=== PATIENT | male | born 1965 | race Caucasian/White ===

== ENCOUNTER 2017-08-12 03:09 | Emergency (ER) | payer MEDICAID ==
[~2017-08-12] VITALS: Ht 172.7 cm; Wt 72.6 kg
[2017-08-12 03:09] VITALS: BP 131/76
--- NOTE | 2017-08-12 03:20 | NUR ---
PATIENT PRESENTS TO ED WITH ETOH. PATIENT REFUSES TO ANSWER ANY QUESTIONS REGARDING MEDICAL HISTORY, ALLERGIES, OR MEDICATIONS. PATIENT STATES "YOU TELL ME" WHEN ASKED QUESTIONS. SKIN IS PINK/WARM/DRY; AAOX3; LUNGS CLEAR BL; HR EVEN AND REGULAR; VSS; PATIENT POSITIONED FOR COMFORT; HOB ELEVATED; BEDRAILS UP X1; BED DOWN. ER MD MADE AWARE OF PT STATUS. WILL ATTEMPT TO REASSESS PATIENTS HISTORY, ALLERGIES, MEDICATIONS.
--- NOTE | 2017-08-12 04:34 | NUR ---
Patient appears to be resting comfortably in bed. Vital Signs within normal limits. Respirations even and unlabored.
--- NOTE | 2017-08-12 06:09 | NUR ---
Patient discharged with v/s stable. Written and verbal after care instructions given and explained. Patient verbalized understanding. Ambulatory with steady gait. All questions addressed prior to discharge. Advised to follow up with PMD.
[2017-08-12 06:10] VITALS: BP 110/66
== END 2017-08-12 06:10 | disposition home or self-care (01) ==
LOC: MED 03:09
DX: F10.129 Alcohol abuse with intoxication, unspecified (principal)
CPT/HCPCS: 99283

== ENCOUNTER 2020-09-08 07:40 | Emergency (ER) | payer MEDICAID ==
[~2020-09-08] VITALS: Ht 172.7 cm; Wt 77.1 kg
--- NOTE | 2020-09-08 07:40 | NUR ---
PT BIBA BLS TO BED 7
[2020-09-08 07:46] VITALS: BP 155/93
--- NOTE | 2020-09-08 07:50 | NUR ---
55 y/o [place] [facility] [place] c/c fall s/p seizure activity. Patient A&Ox3 GCS 14, Citizen Of [place] speaking. Per EMS, witnessed seizure lasting 1 minute in duration. Patient admits to drinking alcohol of unknown amount. Patient presents diaphoretic, appears agitated and rambling. HR 103. Pt states subjective fever. Denies chills, nausea, vomiting, chest pain, SOB. Pt placed into a gown; clinical research monitor in place. RR even/unlabored. Bed locked in lowest position, side rails x 2 por patient safety. Seizure precautions in place. Allergies: Denies Med hx: Denies
[2020-09-08] MEDS ORDERED: LORazepam 2 MG/ML VIAL IVP ONE (07:55)
--- NOTE | 2020-09-08 07:56 | NUR ---
DR ASIF AT BEDSIDE EVALUATING PT
--- NOTE | 2020-09-08 08:06 | NUR ---
Patient transported to CT via gurney.
--- NOTE | 2020-09-08 08:14 | NUR ---
Patient returned from CT.
--- NOTE | 2020-09-08 08:25 | NUR ---
Patient desating SpO2 85% while asleep in high-fowlers. Pt placed onto 2L via N/C; SpO2 99%. color television console monitor remains in place. Dr. Soria made aware.
--- NOTE | 2020-09-08 08:37 | NUR ---
Patient states he is unable to void at this time.
--- NOTE | 2020-09-08 08:40 | NUR ---
Dr. Soria is evaluating the patient at bedside.
--- NOTE | 2020-09-08 08:40 | NUR ---
0840-Pt had epileptic episode lasting 1minute, HOB layed flat, pt positioned in recovery position, seizure precautions in place. Suction available at bedside, O2 NC from 2L up to 4L NC. Dr. Soria at pt bedside, ativan ordered IVP 1mg STAT. 0842-Pt had epileptic episode lasting 20seconds, HOB layed flat, pt positioned in recovery position, seizure precautions in place. Suction available at bedside, O2 NC from 2L up to 4L NC. 0851-Pt is postictal becoming increasing agitated. made aware.
--- NOTE | 2020-09-08 08:45 | NUR ---
Patient disruption of medical care; pulled out IV line. Bleeding controlled by 2x2 gauze and taped.
--- NOTE | 2020-09-08 08:55 | NUR ---
Restraints applied due to increased agitation and harm to self/staff. Patient combative, yelling and attempting to remove self from bed.
[2020-09-08 08:56] LABS: BASOPHILS # (AUTO) 0.1 K/uL (0.00-0.22); BASOPHILS % (AUTO) 1.1 % (0.0-2.0); EOSINOPHILS # (AUTO) 0.1 K/uL (0-0.4); EOSINOPHILS % (AUTO) 1.6 % (0.0-4.0); HEMATOCRIT 37.5 % (36-52); HEMOGLOBIN 13.4 g/dL (12.0-18.0); LYMPHOCYTES # (AUTO) 2.5 K/uL (2.0-11.5); LYMPHOCYTES % (AUTO) 36.1 % (20.5-51.1); MEAN CORPUSCULAR HEMOGLOBIN 34 pg (27-31); MEAN CORPUSCULAR HGB CONC 36 g/dL (33-37); MEAN CORPUSCULAR VOLUME 94.3 fL (80-94); MONOCYTES % (AUTO) 14.7 % (1.7-9.3); NEUTROPHILS # (AUTO) 3.3 K/uL (1.8-7.7); NEUTROPHILS % (AUTO) 46.5 % (42.2-75.2); PLATELET COUNT (AUTO) 372 K/uL (140-450); RED BLOOD CELL COUNT(AUTO) 3.98 MIL/uL (4.20-6.10); RED CELL DISTRIBUTION WIDTH 16.6 % (11.6-13.7); WHITE BLOOD COUNT (AUTO) 7.1 K/uL (4.8-10.8)
[2020-09-08] MEDS ORDERED: LORazepam 2 MG/ML VIAL ONE (09:03)
--- NOTE | 2020-09-08 09:04 | NUR ---
PER DR. ASIF ATIVAN 2MG IM STAT.
[2020-09-08] MEDS ORDERED: LORazepam 2 MG/ML VIAL IM ONE (09:05)
--- NOTE | 2020-09-08 09:15 | NUR ---
Patient continues to resist restraints kicking and pulling at all extremity restraints. Patient yelling at this time, attempts to reorient patient to self, situation and place unsuccessful.
[2020-09-08 09:19] LABS: ALBUMIN 3.8 g/dL (3.4-5.0); ANION GAP 18.3 (8-16); ASPARTATE AMINOTRANSFERASE 93 U/L (15-37); CARBON DIOXIDE 19.9 mmol/L (21-32); CHLORIDE 105 mmol/L (98-107); CREATININE 1.1 mg/dL (0.6-1.3); GFR ARICAN-AMERICAN 89 mL/min (>90); GLUCOSE 177 mg/dL (74-106); POTASSIUM 3.2 mmol/L (3.5-5.1); SODIUM SERUM 140 mmol/L (136-145); UREA NITROGEN, BLOOD 8 mg/dL (7-18)
[2020-09-08 09:21] LABS: ACETAMINOPHEN < 0.5 ug/ml (10-30); SALICYLATE < 2.8 mg/dL (2.8-20.0)
--- NOTE | 2020-09-08 09:31 | NUR ---
Patient asleep in high-fowlers position. monitoring engineer remains in place. SpO2 97% on 4L via N/C; RR 116; RR 36.
--- NOTE | 2020-09-08 09:45 | NUR ---
Patient increasing agitated, attempting to remove self from restrainst at this time. Patient reassured and reoriented to self, place, situation.
--- NOTE | 2020-09-08 09:59 | NUR ---
Patient assisted with void in urinal at bedside. Urine sample collected, walked to lab and handed to CPT Babak.
[2020-09-08] MEDS ORDERED: NACL 0.9% 1,000 ML IV ONE (10:05)
--- NOTE | 2020-09-08 10:10 | NUR ---
Note yessidaniel in EDM - 09/08/20 at 1039 by CLAU Patient with increased agitation attempting to remove self from restraints. Dr. Soria made aware of patient's recent seizure activity with no medical history of seizures. Suggested Herberth camacho at this time; no new orders placed.
--- NOTE | 2020-09-08 10:15 | NUR ---
El mazariegos swab collected, walked to lab and handed to CPT. Babak
--- NOTE | 2020-09-08 10:27 | NUR ---
Patient is combative at this time, provided with water per request. brain surgeon and IVF remains in place. Bed locked in lowest position, side rails x 2, seizure precautions in place.
[2020-09-08 10:43] LABS: APPEARANCE,URINE CLEAR (CLEAR); BILIRUBIN,URINE NEGATIVE (NEGATIVE); BLOOD, URINE TRACE-I (NEGATIVE); COLOR,URINE YELLOW (YELLOW); LEUKOCYTE ESTERASE ,URINE NEGATIVE (NEGATIVE); NITRITE, URINE NEGATIVE (NEGATIVE); UGLUCOSE NEGATIVE (NEGATIVE)
--- NOTE | 2020-09-08 10:51 | NUR ---
Patient pulled out left forearm IV line. Bleeding controlled with 2x2 gauze. 20G R AC line established, IVF continued.
--- NOTE | 2020-09-08 10:55 | NUR ---
Patient requested to have restraints removed; acknowledged to cooperative upon removal. Patient is able to follow commands at this time.
[2020-09-08 11:02] LABS: BARBITURATE, URINE NEGATIVE ng/ml (NEG <=200); BENZODIAZEPINE, URINE NEGATIVE ng/mL (NEG <=200); CANNABINOID, URINE POSITIVE ng/mL (NEG <=50); COCAINE, URINE NEGATIVE ng/mL (NEG <=300); OPIATE, URINE NEGATIVE ng/mL (NEG <=2000); PHENCYCLIDINE SCREEN,URINE NEGATIVE ng/mL (NEG <=25)
[2020-09-08 11:09] LABS: RBC,URINE NONE SEEN /HPF (0-5); WBC,URINE 0-5 /HPF (0-5)
--- NOTE | 2020-09-08 11:09 | NUR ---
Patient asleep in right position in semi-fowlers position. internet manager and IVF continued. Bed locked in lowest position, side rails x 2.
--- NOTE | 2020-09-08 11:28 | NUR ---
Patient resting on left side in semi-fowlers position. continues to shuffle in bed stating he is cold. 2 blankets provided at this time. agency trainer remains in place. HR 93, RR 16 even/unlabored. SpO2 100% on 4L via N/C. BP 115/69.
--- NOTE | 2020-09-08 11:30 | NUR ---
Patient to be transferred to [facility]. Is being transferred due to higher level of care- trauma/neuro. Receiving facility has accepting physician and available space. ER physician has signed transfer form. Patient or responsible green party has agreed to transfer and signed form. Patient belongings inventoried and will be sent with patient. Copy of nursing notes, lab reports, EKG, Physicians Orders and X-rays to be sent with patient. Report called to ROSA MARIA Bueno at receiving facility. [facility] ambulance service has been called for transfer. ETA is 1200.
--- NOTE | 2020-09-08 11:41 | NUR ---
Report given to ROSA MARIA Bueno at [facility]. Advised of ELINA Ding.
--- NOTE | 2020-09-08 12:17 | NUR ---
Patient resting on Rside in semi-fowlers position. continues to shuffle in bed. monitor and storage bin tender remains in place. HR 91, RR 26. SpO2 100% on 4L via N/C. No respiratory distress noted.
[2020-09-08 12:25] VITALS: BP 130/88
--- NOTE | 2020-09-08 12:25 | NUR ---
[facility] at bedside.
== END 2020-09-08 12:25 | disposition short-term general hospital (02) ==
LOC: MED 07:40
DX: S02.11GA Other fracture of occiput, right side, initial encounter for closed fracture (principal); R56.9 Unspecified convulsions; R41.82 Altered mental status, unspecified; Z20.822 Contact with and (suspected) exposure to COVID-19; X58.XXXA Exposure to other specified factors, initial encounter; Y93.89 Activity, other specified; Y92.89 Other specified places as the place of occurrence of the external cause; Y99.8 Other external cause status
CPT/HCPCS: 36415; 70450; 80053; 80305; 81001; 84484; 85025; 87426; 96361; 96372; 96374; 99284; G0480; G0482; J2060; J7030

== ENCOUNTER 2020-12-30 19:31 | Emergency (ER) | payer MEDICAID, OTHER ==
[~2020-12-30] VITALS: Ht 172.7 cm; Wt 71.2 kg
[2020-12-30 19:31] VITALS: BP 146/97
--- NOTE | 2020-12-30 19:39 | NUR ---
PT LUIS BLS. TAKEN TO BED 2
--- NOTE | 2020-12-30 19:40 | NUR ---
RECEIVED IN BED 2 VIA [facility] WITH C/O ETOH. WAS FOUND ON MATTRESS OUTSIDE, SLEEPING. APPROX 1 CM LACERATION NOTED LEFT EYEBROW, DRAINAGE CONTROLLED
--- NOTE | 2020-12-30 20:30 | NUR ---
ROLLED TO SIDE OF BED AND URINATED ON FLOOR AND BED. LINENS CHANGED. PT STOOD TO SIDE OF BED, RETURNED TO BED AND RESTS WITH EYES CLOSED
--- NOTE | 2020-12-30 21:25 | NUR ---
ROLLED TO OTHER SIDE OF [facility] AND URINATED ON FLOOR. PT DEFACATED. PT CLEANED GOWN PLACED AND LINENS CHANGED. SMALL BAG ( OF VEGETATION ) FOUND BETWEEN BUTTOCKS CHEEKS
--- NOTE | 2020-12-30 21:55 | NUR ---
TO CT VIA [facility]
--- NOTE | 2020-12-30 22:12 | NUR ---
RETURNED FROM CT.
[2020-12-30 22:57] LABS: BASOPHILS % (AUTO) 1.3 % (0.0-2.0); EOSINOPHILS # (AUTO) 0.1 K/uL (0-0.4); EOSINOPHILS % (AUTO) 2.3 % (0.0-4.0); HEMATOCRIT 39.3 % (36-52); HEMOGLOBIN 13.9 g/dL (12.0-18.0); LYMPHOCYTES # (AUTO) 1.9 K/uL (2.0-11.5); LYMPHOCYTES % (AUTO) 48.8 % (20.5-51.1); MEAN CORPUSCULAR HEMOGLOBIN 35 pg (27-31); MEAN CORPUSCULAR HGB CONC 35 g/dL (33-37); MEAN CORPUSCULAR VOLUME 98.1 fL (80-94); MONOCYTES # (AUTO) 0.4 K/uL (0.8-1.0); MONOCYTES % (AUTO) 10.2 % (1.7-9.3); NEUTROPHILS # (AUTO) 1.5 K/uL (1.8-7.7); NEUTROPHILS % (AUTO) 37.4 % (42.2-75.2); PLATELET COUNT (AUTO) 256 K/uL (140-450); RED CELL DISTRIBUTION WIDTH 15.5 % (11.6-13.7); WHITE BLOOD COUNT (AUTO) 3.9 K/uL (4.8-10.8)
[2020-12-30 23:14] LABS: ANION GAP 14.2 (8-16); CARBON DIOXIDE 28.4 mmol/L (21-32); CREATININE 0.9 mg/dL (0.6-1.3); POTASSIUM 3.6 mmol/L (3.5-5.1); PROTHROMBIN TIME 11.4 secs (10.8-13.4)
--- NOTE | 2020-12-31 00:23 | NUR ---
PT AMBULATES WITHOUT ASSISTANCE
[2020-12-31 00:32] VITALS: BP 138/84
== END 2020-12-31 00:32 | disposition home or self-care (01) ==
LOC: MED 19:31
DX: S00.83XA Contusion of other part of head, initial encounter (principal); T65.891A Toxic effect of other specified substances, accidental (unintentional), initial encounter; F10.129 Alcohol abuse with intoxication, unspecified; X58.XXXA Exposure to other specified factors, initial encounter; Y93.89 Activity, other specified; Y92.89 Other specified places as the place of occurrence of the external cause; Y99.8 Other external cause status
CPT/HCPCS: 36415; 70450; 70486; 72125; 80048; 85025; 85610; 85730; 99285

== ENCOUNTER 2021-09-02 01:09 | Emergency (ER) | payer OTHER ==
[~2021-09-02] VITALS: Ht 162.6 cm; Wt 63.5 kg
--- NOTE | 2021-09-02 01:18 | NUR ---
PT BIBA BLS ER BED 4
[2021-09-02 01:19] VITALS: BP 144/96
[2021-09-02 01:21] VITALS: BP 144/96
--- NOTE | 2021-09-02 01:21 | NUR ---
Patient BIB by [facility]. C/O Head injury today. Per reported, patient had head injury today, +ETOH.
--- NOTE | 2021-09-02 02:03 | NUR ---
Dr. Palma spoke with [facility] for transfer.
--- NOTE | 2021-09-02 02:04 | NUR ---
Patient to be transferred to [facility]. Is being transferred due to trauma and high level of care. Receiving facility has accepting physician and available space. ER physician has signed transfer form. Patient or responsible constitution party has agreed to transfer and signed form. Patient belongings inventoried and will be sent with patient. Copy of nursing notes, lab reports, EKG, Physicians Orders and X-rays to be sent with patient. Report called to Pramod at receiving facility. [facility] ambulance service has been called for transfer. ETA is 10 minutes.
[2021-09-02 02:05] VITALS: BP 144/96
[2021-09-03] MEDS ORDERED: PIPERACILLIN/TAZOBACTAM 3.375 GM VIAL IV ONE (02:13)
== END 2021-09-02 02:04 | disposition short-term general hospital (02) ==
LOC: MED 01:09
DX: S09.90XA Unspecified injury of head, initial encounter (principal); G93.40 Encephalopathy, unspecified; X58.XXXA Exposure to other specified factors, initial encounter; Y93.89 Activity, other specified; Y92.89 Other specified places as the place of occurrence of the external cause; Y99.8 Other external cause status
CPT/HCPCS: 99285; J2543

== ENCOUNTER 2021-09-02 23:45 | Inpatient (IN) | payer OTHER ==
[~2021-09-02] VITALS: Ht 160 cm; Wt 64.9 kg
[2021-09-02 23:46] VITALS: BP 101/53
--- NOTE | 2021-09-02 23:47 | NUR ---
LUIS WILSON TAKEN TO BED #11
[2021-09-03] VITALS (28 sets, daily range): BP systolic 139–183; BP diastolic 71–106
[2021-09-03] MEDS ORDERED: LORazepam 2 MG/ML VIAL ONE
--- NOTE | 2021-09-03 | NUR ---
56 YO M BIBA WITH C/C OF SEIZURE. PT FOUND BY PD IN [facility] NONRESPONSIVE 15 MINS MARK HAD A TONIC CLONIC SEIZURE WITH MEDICS, LASTING ABOUT 1 MIN, MEDICS GAVE 5MG OF VERCED. PT CONT TO BE UNRESPONSIZE. PT HAS WHAT APPEARS TO BE AN OLD INJURY TO LEFT FOREHEAD. PRESENTS WITH IV ACCESS TO LEFT AC 18G. RT AT BEDSIDE. FOUND MEDICATION ON HIS PERSON - HYDROXIZINE 25MG AND XYPREXA 10MG, BOTH BOTTLES HAVE THE NAMES OF OTHER PEOPLE. UNABLE TO OBTAIN HX, RX AND ALLEGIES
--- NOTE | 2021-09-03 | NUR ---
PT NOTED WITH ACTIVE SEIZURE. VERBAL ORDER FOR ATIVAN 2MG IVP RECEIVED FROM DR. SHELL. ORDER CARRIED OUT.
[2021-09-03] MEDS ORDERED: INTUBATION KIT MC ONE (00:01)
--- NOTE | 2021-09-03 00:03 | NUR ---
20MG OF ETOMIDATE AND 100MG OF ROCURONIUM 100MG
--- NOTE | 2021-09-03 00:05 | NUR ---
PT INTUBATED. 24 AT THE TEETH.
[2021-09-03] MEDS ORDERED: PROPOFOL 1000 MG/100 ML PREMIX 100 ML IV ONE ×2 (00:07→00:10)
--- NOTE | 2021-09-03 00:14 | NUR ---
Spoke with poison control- recommendation - obsevation for seizure, hypotension, wide QRS, Tachycardia, Bacic labs: CBC, CMP, Alcohol, EKG, ASA, CKMB, Tylenol. Dr. Hallman notified.
[2021-09-03] MEDS ORDERED: MIDAZOLAM MDV 50 MG in NACL 0.9% 40 ML IV PRN (00:15)
[2021-09-03 00:26] LABS: BASOPHILS # (AUTO) 0.1 K/uL (0.00-0.22); BASOPHILS % (AUTO) 0.5 % (0.0-2.0); HEMATOCRIT 37.1 % (36-52); HEMOGLOBIN 11.8 g/dL (12.0-18.0); LYMPHOCYTES % (AUTO) 9.5 % (20.5-51.1); MEAN CORPUSCULAR HEMOGLOBIN 31 pg (27-31); MEAN CORPUSCULAR HGB CONC 32 g/dL (33-37); MEAN CORPUSCULAR VOLUME 98.6 fL (80-94); MONOCYTES # (AUTO) 1.2 K/uL (0.8-1.0); MONOCYTES % (AUTO) 10.5 % (1.7-9.3); NEUTROPHILS # (AUTO) 8.8 K/uL (1.8-7.7); NEUTROPHILS % (AUTO) 79.5 % (42.2-75.2); PLATELET COUNT (AUTO) 217 K/uL (140-450); RED BLOOD CELL COUNT(AUTO) 3.76 MIL/uL (4.20-6.10)
[2021-09-03] MEDS ORDERED: LORazepam 2 MG/ML VIAL IVP ONE (00:35)
--- NOTE | 2021-09-03 00:37 | NUR ---
ABG RESULTS WERE GIVEN TO DR. SHELL. READ BACK CONFIRMED AT THIS TIME. NO CHANGES MADE TO VENT SETTINGS AT THIS TIME. WILL CONTINUE TO MONITOR PT.
--- NOTE | 2021-09-03 00:42 | NUR ---
SPOKE TO BIBI Otto WHO WANTED CLINICALS ON PATIENT AND UPDATED ON PATIETNS CONDITION.
[2021-09-03] MEDS ORDERED: MIDAZOLAM MDV 50 MG/10 ML VIAL IV ONE (00:46)
[2021-09-03 00:49] LABS: APPEARANCE,URINE CLEAR (CLEAR); BILIRUBIN,URINE NEGATIVE (NEGATIVE); BLOOD, URINE 1+ (NEGATIVE); COLOR,URINE YELLOW (YELLOW); LEUKOCYTE ESTERASE ,URINE NEGATIVE (NEGATIVE); NITRITE, URINE NEGATIVE (NEGATIVE); UGLUCOSE NEGATIVE (NEGATIVE)
[2021-09-03 00:52] LABS: ALBUMIN 3.9 g/dL (3.4-5.0); ANION GAP 33.6 (8-16); ASPARTATE AMINOTRANSFERASE 104 U/L (15-37); CARBON DIOXIDE 13.2 mmol/L (21-32); CHLORIDE 102 mmol/L (98-107); CREATININE 1.6 mg/dL (0.6-1.3); GFR ARICAN-AMERICAN 58 mL/min (>90); GLUCOSE 74 mg/dL (74-106); POTASSIUM 3.8 mmol/L (3.5-5.1); SODIUM SERUM 145 mmol/L (136-145); TOTAL BILIRUBIN 0.6 mg/dL (0.0-1.0); UREA NITROGEN, BLOOD 12 mg/dL (7-18)
[2021-09-03 00:53] LABS: SALICYLATE < 2.8 mg/dL (2.8-20.0)
[2021-09-03 00:54] LABS: ACETAMINOPHEN < 0.5 ug/ml (10-30)
[2021-09-03 00:56] LABS: RBC,URINE 0-5 /HPF (0-5); WBC,URINE 0-5 /HPF (0-5)
[2021-09-03 01:01] LABS: BARBITURATE, URINE NEGATIVE ng/ml (NEG <=200); BENZODIAZEPINE, URINE NEGATIVE ng/mL (NEG <=200); CANNABINOID, URINE NEGATIVE ng/mL (NEG <=50); COCAINE, URINE NEGATIVE ng/mL (NEG <=300); OPIATE, URINE NEGATIVE ng/mL (NEG <=2000); PHENCYCLIDINE SCREEN,URINE NEGATIVE ng/mL (NEG <=25)
--- NOTE | 2021-09-03 01:16 | NUR ---
PT TRANSPORTED TO CT AND BACK TO ED 11 WITH NO ADVERSE EVENTS PT TOLERATED TRANSPORT WELL VENT PLUGGED INTO RED OUTLET AND ALRMS REMAIN ON AND AUDIBLE WILL CONTINUE TO MONITOR
[2021-09-03] MEDS ORDERED: PIPERACILLIN/TAZOBACTAM 3.375 GM in DEXTROSE 5% 50 ML IV ONE (01:25)
[2021-09-03] MEDS ORDERED: MAGNESIUM OXIDE 400 MG TAB PO PRN (01:25)
[2021-09-03] MEDS ORDERED: MORPHINE SULFATE 4 MG/ML SYR IVP PRN (01:25)
[2021-09-03] MEDS ORDERED: POTASSIUM CHLORIDE 10 MEQ TABER PO PRN (01:25)
[2021-09-03] MEDS: NACL 0.9% 1,000 ML IV SCH ×2 (01:25→14:18)
[2021-09-03] MEDS ORDERED: levETIRAcetam 1,000 MG in NACL 0.9% 100 ML IV SCH (01:30)
--- NOTE | 2021-09-03 01:49 | NUR ---
FIO2 TITRATED TO 28% PT TOLERATING WELL AT THIS TIME W/ SPO2 96% 5 MIN POST TITRATION WILL CONTINUE TO MONITOR
--- NOTE | 2021-09-03 02:28 | NUR ---
MAURICED US GUIDED 18G TO RT EJ.
--- NOTE | 2021-09-03 02:37 | NUR ---
Patient will be admitted to care of . Admited to ICU. Will go to [id number]. Belongings list completed. Report to ROSA MARIA GOULD.
[2021-09-03] MEDS ORDERED: levETIRAcetam 100 MG/ML VIAL IV ONE (03:45)
--- NOTE | 2021-09-03 05:10 | NUR ---
RECEIVED CALL FROM WM AT POISON CONTROL; REVIEWED THE FOLLOWING: EKG (QTC, AND QRS) SALICYLATES: <2.8 ACETAMINOPHEN: <5.0 CREATINE KINASE: 1082 RECOMMENDATIONS: -REPEAT CK TO MONITOR FOR RHABDO -ADMINISTER ATIVAN FOR BREAK-THROUGH SEIZURE ACTIVITY IF NEEDED -REPEAT EKG WILL ENDORSE TO DAY SHIFT
--- NOTE | 2021-09-03 05:56 | NUR ---
MESSAGE SENT TO DR. HALL REGARDING ELEVATED BP SINCE ADMISSION TO ICU. CURRENT BP AT TIME OF MESSAGE: 170/106 REQUESTING ORDERS FOR BP MEDICATION
--- NOTE | 2021-09-03 07:10 | NUR ---
SBAR REPORT RECEIVED FROM SABINO CRANE, ALL CARES ASSUMED. PT INTUBATED, SEDATED, SOFT WRIST RESTRAINTS IN PLACE. VENT SETTINGS AC/VC16, 500, 28%, 5. BED IN LOW, LOCKED POSITION, HOB ELEVATED 30 DEGREES.
--- NOTE | 2021-09-03 07:25 | NUR ---
ENDORSED PATIENT TO REYMUNDO RN SACHIN)
[2021-09-03] MEDS: PANTOPRAZOLE 40 MG INJ VIAL IVP SCH (08:13)
[2021-09-03] MEDS: ENOXAPARIN 30 MG/0.3 ML SYR SUBQ SCH (08:14)
--- NOTE | 2021-09-03 08:40 | NUR ---
PATIENT HAS BEEN SCREENED AND CATEGORIZED HIGH NUTRITION RISK. PATIENT WILL BE SEEN WITHIN 1-2 DAYS OF ADMISSION. REFERRAL RECEIVED FOR INTUBATION ENEDINA BELLAMY RD
--- NOTE | 2021-09-03 08:49 | NUR ---
CALLED ORDER EEG AND KEPPRA TO 750 Q 12H.
[2021-09-03] MEDS ORDERED: levETIRAcetam 500 MG in NACL 0.9% 100 ML IV SCH (09:00)
--- NOTE | 2021-09-03 09:01 | NUR ---
DC PLANNIN YRS OLD HOMELESS PATIENT WAS ADMITTED FROM ER WITH A DX OF STATUS EPILEPTICS. PATIENT HAS UNKNOWN MEDICAL HISTORY. INTUBATED SEDATED WITH VERSED DRIP , KEPPRA IV FOR SEIZURE. CXR NEGATIVE. HEAD CT SHOWED NO ACUTE BLEED OR INFRACT. RAPID COVID TEST NEGATIVE , SPUTUM CULTURE PENDING. CONSULTED WITH NEUROLOGIST AND PULMO. DC PLAN PER PATIENT RESPOND TO THE TREATMENT. CM TO FOLLOW. Addendum: 09/10/21 at 1357 by Lydia Hutson RN DC PLANNING: PT STILL AGITATED RESTLESS ON RESTRAINTS. RECEIVED A CALL FROM [facility] [phone] SPOKE WITH MARLA RICHEY UPDATED HIM PT'S CLINICAL AND THE DC PLAN TO SNF PER MARLA WILL APPROVE WITH THE PLAN AND WILL E-MAIL THE CONTRACTED FACILITY. DC PLAN TO SNF WHEN STABLE CM TO FOLLOW Addendum: 10/04/21 at 1528 by Cheryl Wiley CM DC PLANNING: CLINICAL PACKET FAXED TO [facility] TO ASSIST WITH SNF PLACEMENT. CM WILL FOLLOW.
[2021-09-03] MEDS: PIPERACILLIN/TAZOBACTAM 2.25 GM in DEXTROSE 5% 50 ML IV SCH ×2 (09:33→18:48)
--- NOTE | 2021-09-03 09:47 | NUR ---
WOUND CARE NOTE: SKIN ASSESSMENT DONE WITH PRIMARY RN ON THIS 56 Y/O PT.WITH WITNESSED SEIZURES. PT IS INTUBATED , PT. ADMITTED WITH MULTIPLE DRY OLD BROWN ABRASIONS TO LEFT EYEBROW AND LEFT KNEE, DANGELO WOUND SKIN INTACT, NO S/S OF INFECTION.PT. WITH LOW PRASANNA SCALE AT HIGH RISK, CONTINUE TO FOLLOW PRESSURE INJURY PREVENTION INTERVENTIONS. -PAINT LEFT EYEBROW AND LEFT KNEE WITH BETADINE SWAP STICKS BID AND NATANAEL -APPLY FOAM DRESSING TO SACRALCOCCYX Q3DAYS AND PRN IF SOILING PREVENTION -POSITIONING: TURN AND REPOSITION PATIENT Q 2H OR SOONER USE PILLOWS TO KEEP BONY PROMINENCES FROM DIRECT CONTACT WITH SURFACES USE REPOSITIONING WEDGES TO PROVIDE 30-DEGREE ANGLE FOR SIDE LYING POSITIONS OFFLOADING OR FOAM DRESSING TO ALL TUBING TO PREVENT MEDICAL DEVICES RELATED PRESSURE INJURY -RE-EVALUATING AND MANAGING INCONTINENCE MONITOR SKIN CONDITION DURING POSITION CHANGE DO NOT MASSAGE REDNESS, BONY PROMINENCES FREQUENT DANGELO-CARE AND PROVIDE BARRIER CREAMS PRN IF SOILING MOISTURE CONTROL BY OFFER BED CERVANTES/URINAL /ABSORBENT PAD TO WICK AND HOLD MOISTURE KEEP SKIN DRY AND PROTECT FROM FRICTION -MANAGE FRICTION/SHEAR/MOBILITY KEEP HOB AT THE LOWEST LEVEL OF ELEVATION NO MORE THAN 30 DEGREE UNLESS OTHERWISE CONTRAINDICATED USE LIFT SHEET OR TRANSFER DEVICE TO MOVE PATIENT AND PREVENT LATERAL SHEER. PROTECT HEELS, ELBOWS BONY PROMINENCES WITH SKIN BERRIES OR FOAM DRESSING IF EXPOSED TO FRICTION OFFLOAD BILATERAL HEELS BY PLACING PILLOWS UNDER CALVES AT ALL TIMES, UNLESS OTHERWISE CONTRAINDICATED -PRESSURE REDISTRIBUTION SURFACE THERAPY ELIZABETH ISOFLEX MATTRESS -NUTRITION: PLEASE FOLLOW RD RECOMMENDATIONS AND OFFER NUTRITION SUPPLEMENTS IF ORDERED. PLEASE CONTACT WOUND CARE NURSE FOR ANY QUESTION AND CHANGE OF WOUND CONDITION.
--- NOTE | 2021-09-03 14:10 | NUR ---
EEG TEST AT BEDSIDE CURRENTLY. PT STABLE.
[2021-09-03] MEDS: GAUZE TP SCH (14:18)
[2021-09-03] MEDS ORDERED: MORPHINE SULFATE 2 MG/ML SYR IVP PRN (14:45)
--- NOTE | 2021-09-03 15:15 | NUR ---
09/03/21 RD INITIAL ASSESSMENT COMPLETED PLEASE REFER TO NUTRITION ASSESSMENT UNDER CARE ACTIVITY FOR ESTIMATED NUTRITIONAL NEEDS. 1. WHEN/IF MEDICALLY APPROPRIATE TO INITIATE TUBE FEEDING, RECOMMEND JEVITY 1.2 @55 ML/HR + FREE WATER FLUSH 150ML Q6H. -1584 KCAL/DAY -73.3 G PRO/DAY 2. IF EXTUBATED, RECOMMEND SWALLOW EVAL BEFORE ADVANCING DIET 3. RD TO FOLLOW-UP 2-3 DAYS, HIGH RISK REVIEWED BY ENEDINA BELLAMY RD
[2021-09-03] MEDS: PROPOFOL 1000 MG/100 ML PREMIX 100 ML IV PRN (15:26)
--- NOTE | 2021-09-03 15:35 | NUR ---
VERSED DRIP TITRATED DOWN AND DISCONTINUED, PROPOFOL DRIP INITIATED. PT RASS SCORE REMAINS -2. VSS.
--- NOTE | 2021-09-03 17:14 | NUR ---
BED BATH/CHG GIVEN, ORAL CARE DONE, DANGELO CARE DONE, LINEN AND GOWN CHANGED. PT TOLERATED, VSS.
--- NOTE | 2021-09-03 17:59 | NUR ---
PT NOT IN ANY DISTRESS AT THIS TIME. VENT ALARMS REMAIN ON AND FUNCTIONING. ETT IS SECURE WITH A PATENT AIRWAY.
[2021-09-03] MEDS: hydrALAZINE 20 MG/ML VIAL IVP PRN (19:22)
--- NOTE | 2021-09-03 19:22 | NUR ---
SBAR REPORT GIVEN TO ALICIA CRANE, ALL CARES ENDORSED. PT INTUBATED, SEDATED. VSS.
--- NOTE | 2021-09-03 20:10 | NUR ---
@1920 Assumed pt care, bedside report received from Kirstie CRANE met pt sedated on Propofol drip, restrained for safety bilateral wrist restraints, ETT to vent A/C V/C rate 16 FIO2 25% PEEP5 TV 500, tolerating well, no sign of distress, oral care, suctioned for airway clearance, propofol turned off few minutes for neuro assessment, pt eyes opened not following command became restless in bed attempting to reach out to pull the tube fighting the restraints,. release restraints skin checked no break down noted, alll pulses cked palpable, NGT on the left nares clamped placement and verified by auscultation. Slade care and down to gravity below bladder. Repositioned for comfort, will continue to monitor and treat as per care plan.
[2021-09-03] MEDS: levETIRAcetam 750 MG in NACL 0.9% 100 ML IV SCH (21:44)
[2021-09-04] VITALS (31 sets, daily range): BP systolic 136–172; BP diastolic 52–100
[2021-09-04] MEDS: PROPOFOL 1000 MG/100 ML PREMIX 100 ML IV PRN ×4 (00:10→15:30)
[2021-09-04] MEDS: GAUZE TP SCH ×3 (00:14→23:43)
[2021-09-04] MEDS: NACL 0.9% 1,000 ML IV SCH ×2 (02:24→14:55)
[2021-09-04] MEDS: PIPERACILLIN/TAZOBACTAM 2.25 GM in DEXTROSE 5% 50 ML IV SCH ×3 (02:26→18:00)
[2021-09-04] MEDS: LORazepam 2 MG/ML VIAL IM/IVP PRN ×2 (03:35→20:52)
--- NOTE | 2021-09-04 04:30 | NUR ---
Complete bed bath with CHG skin ,suction via ETT, oral, hinson care pt tolerated well and repositioned for comfort.
[2021-09-04 06:12] LABS: HEMATOCRIT 34.6 % (36-52); HEMOGLOBIN 11.4 g/dL (12.0-18.0); MEAN CORPUSCULAR HEMOGLOBIN 31 pg (27-31); MEAN CORPUSCULAR HGB CONC 33 g/dL (33-37); MEAN CORPUSCULAR VOLUME 95.3 fL (80-94); PLATELET COUNT (AUTO) 153 K/uL (140-450); RED BLOOD CELL COUNT(AUTO) 3.63 MIL/uL (4.20-6.10); RED CELL DISTRIBUTION WIDTH 17.3 % (11.6-13.7); WHITE BLOOD COUNT (AUTO) 15.7 K/uL (4.8-10.8)
[2021-09-04 06:29] LABS: ALBUMIN 3.4 g/dL (3.4-5.0); ANION GAP 16.6 (8-16); CARBON DIOXIDE 24.4 mmol/L (21-32); CREATININE 0.8 mg/dL (0.6-1.3); MAGNESIUM 2.2 mg/dL (1.8-2.4); TOTAL BILIRUBIN 1.2 mg/dL (0.0-1.0)
--- NOTE | 2021-09-04 07:10 | NUR ---
Change of shift report at the beside to VAN RN as at this time pt vitals signs stable afebrile, sedated ongoing Propofol, intubated no sign of distress no changes in care plan and condition.
--- NOTE | 2021-09-04 07:11 | NUR ---
RECEIVED ON A Bloxr R860 VENTILATOR PLUGGED INTO RED OUTLET TOLERATING WELL WITHOUT ADVERSE REACTIONS NOTED TO AN ENDOTRACHEAL TUBE #8.0 SECURED AT 24cm TEETH/GUM LINE WITH AN ANCHOR FAST CUFF PRESSURE CHECKED NOTED AMBU BAG NOTED AT BEDSIDE RESTING WELL NO APPARENT RESPIRATORY NOTED EQUAL CHEST RISE GOOD AERATION THROUGHOUT BILATERAL LUNG BUTLER AIRWAY PATENT Addendum: 09/04/21 at 1316 by Tone Staley RT SATURATION 100% ON FIO2 OF 25% PEEP 5cmH2O TITRATED FIO2 TO 24% VAN/DIESEL ENGINEER NOTIFIED
--- NOTE | 2021-09-04 07:30 | NUR ---
RECEIVED REPORT FROM SHIFT NURSE ALICIA.
[2021-09-04] MEDS: THIAMINE 100 MG TAB PO SCH (08:19)
[2021-09-04] MEDS: PANTOPRAZOLE 40 MG INJ VIAL IVP SCH (08:20)
[2021-09-04] MEDS: CYANOCOBALAMIN 100 MCG TAB PO SCH (08:20)
[2021-09-04] MEDS: ENOXAPARIN 30 MG/0.3 ML SYR SUBQ SCH (08:21)
[2021-09-04] MEDS: KCL 20 MEQ/WATER INJ PREMIX 200 ML IV PRN (08:46)
[2021-09-04] MEDS: levETIRAcetam 750 MG in NACL 0.9% 100 ML IV SCH ×2 (09:19→20:51)
--- NOTE | 2021-09-04 09:47 | NUR ---
PATIENT UNRESPONSIVE AT THIS TIME. VENT SETTINGS FI02 24%, VT 500ML, RR 16, PEEP 5, PPEAK 21. ETT SIZE 8. RALES PRESENT AUSCULTATED LEFT UPPER LOBE OF THE LUNGS. NO COUGH PRESENT AT THIS TIME. ACTIVE BOWEL SOUNDS AUSCULTATED. PATIENT HAS NG TUBE. PATIENT NOT ON FEEDING. HOUGH CATHETER PATENT AND DRAINING WELL. NO BM AT THIS TIME. PATIENT ON SR BP 141/ 86. +2 EDEMA PRESENT ON LEFT HAND. PERIPHERAL PULSES FELT ON ALL EXTREMITIES. MORNING MEDS GIVEN ORDERED. PROP DRIP AT 45MCG. NS RATE AT 80ML/HR. Addendum: 09/04/21 at 1915 by Maggy Bates RN pt sedated, not unresponsive. rass -3 follows commands
[2021-09-04 10:26] LABS: BASOPHILS % (AUTO) 0.2 % (0.0-2.0); EOSINOPHILS % (AUTO) 0.1 % (0.0-4.0); LYMPHOCYTES % (AUTO) 6.1 % (20.5-51.1); MONOCYTES # (AUTO) 1.2 K/uL (0.8-1.0); MONOCYTES % (AUTO) 7.4 % (1.7-9.3); NEUTROPHILS # (AUTO) 13.5 K/uL (1.8-7.7); NEUTROPHILS % (AUTO) 86.2 % (42.2-75.2); PLATELET COUNT,MANUAL 153 K/uL (150-450)
[2021-09-04 10:27] LABS: LYMPHOCYTES % (MANUAL) 7 % (20-46); MONOCYTES % (MANUAL) 6 % (5-12)
--- NOTE | 2021-09-04 11:33 | NUR ---
RESTING COMFORTABLY GOOD CHEST RISE GOOD CHEST RISE AIRWAY PATENT
--- NOTE | 2021-09-04 13:28 | NUR ---
NO EVIDENCE OF RESPIRATORY DISTRESS NOTED GOOD CHEST RISE AND AERATION THROUGHOUT BILATERAL LUNG BUTLER AIRWAY PATENT
--- NOTE | 2021-09-04 15:52 | NUR ---
NO SOB NOTED EQUAL CHEST AIRWAY PATENT
--- NOTE | 2021-09-04 17:30 | NUR ---
NO SOB NOTED GOOD CHEST RISE AND AERATION THROUGHOUT BILATERAL LUNG BUTLER AIRWAY PATENT
[2021-09-04] MEDS ORDERED: DEXMEDETOMIDINE HCL 100 MCG/ML 2 ML VIAL IV ONE (19:09)
[2021-09-04] MEDS: DEXMEDETOMIDINE HCL 400 MCG in NACL 0.9% 96 ML IV PRN (20:31)
--- NOTE | 2021-09-04 20:40 | NUR ---
Assumed pt care bedside report received from Mesfin RN, intubated via ETT fio2 24% O2 sat 100% , eyes open follow verbal response moves all extremities with occasion restless, HR sinus rhythm in 70's no ectpy blood pressure stable afebrile, tube feeding via NGT left nares tolerating well, hinson to gravity with urine, Propofol d/cd now on OPrecedex drip as per MD'S order. Bilateral wrist restraints for safety skin checked no breakdown, as as the restraints pt tried to pulled the tube, Will continue to monitor and treat as per care plan.
[2021-09-04] MEDS: hydrALAZINE 20 MG/ML VIAL IVP PRN (23:48)
[2021-09-04] MEDS: HYDROcodone/APAP 5/325 MG 1 TAB TAB PO PRN (23:50)
[2021-09-05] VITALS (28 sets, daily range): BP systolic 103–170; BP diastolic 51–99
--- NOTE | 2021-09-05 01:30 | NUR ---
Complete bed bath with CHG oral suctioned skin and hinson care done pt tolerated well vitals signs stable.
[2021-09-05] MEDS: NACL 0.9% 1,000 ML IV SCH ×2 (02:14→15:55)
[2021-09-05] MEDS ORDERED: DEXMEDETOMIDINE HCL 100 MCG/ML 2 ML VIAL IV ONE (02:15)
[2021-09-05] MEDS: PIPERACILLIN/TAZOBACTAM 2.25 GM in DEXTROSE 5% 50 ML IV SCH ×3 (02:15→17:21)
[2021-09-05] MEDS: DEXMEDETOMIDINE HCL 400 MCG in NACL 0.9% 96 ML IV PRN ×3 (02:18→18:09)
[2021-09-05] MEDS: fentaNYL citrate 0.05 MG/ML VIAL IVP PRN (02:28)
--- NOTE | 2021-09-05 02:55 | NUR ---
pt is still very restless,agitated ongoing Precedex gtt Fentanyl PRN given not effective enhanced close monitoring for safety and support. Trying to pull ETT, moving up and down in bed extremely restless even Fentanyl ivp given not effective.
[2021-09-05] MEDS: LORazepam 2 MG/ML VIAL IM/IVP PRN (04:51)
--- NOTE | 2021-09-05 05:20 | NUR ---
PT awake very restless took about four staff to persuade him to lay back down as he was fighting the restraints, trying to climb out of bed another dose Ativan 2mg ivp given and Dr Schroeder pagesita/text Order received received to have respiratory therapist to do 15 minutes breathing trials ABG and if good pt can be extubated. And Versed 2mmg ivp now.
[2021-09-05 05:24] LABS: BASOPHILS # (AUTO) 0.1 K/uL (0.00-0.22); BASOPHILS % (AUTO) 0.6 % (0.0-2.0); EOSINOPHILS # (AUTO) 0.1 K/uL (0-0.4); EOSINOPHILS % (AUTO) 0.8 % (0.0-4.0); HEMATOCRIT 35.6 % (36-52); LYMPHOCYTES % (AUTO) 14.6 % (20.5-51.1); MEAN CORPUSCULAR HEMOGLOBIN 32 pg (27-31); MEAN CORPUSCULAR HGB CONC 34 g/dL (33-37); MEAN CORPUSCULAR VOLUME 94.9 fL (80-94); MONOCYTES % (AUTO) 7.8 % (1.7-9.3); NEUTROPHILS # (AUTO) 10.3 K/uL (1.8-7.7); NEUTROPHILS % (AUTO) 76.2 % (42.2-75.2); PLATELET COUNT (AUTO) 135 K/uL (140-450); RED BLOOD CELL COUNT(AUTO) 3.75 MIL/uL (4.20-6.10); RED CELL DISTRIBUTION WIDTH 16.9 % (11.6-13.7); WHITE BLOOD COUNT (AUTO) 13.5 K/uL (4.8-10.8)
[2021-09-05] MEDS ORDERED: MIDAZOLAM 2 MG/2 ML VIAL IV ONE (05:45)
[2021-09-05 05:54] LABS: ALBUMIN 3.2 g/dL (3.4-5.0); ANION GAP 18.7 (8-16); CARBON DIOXIDE 20.4 mmol/L (21-32); CREATININE 0.6 mg/dL (0.6-1.3); MAGNESIUM 1.7 mg/dL (1.8-2.4); POTASSIUM 3.1 mmol/L (3.5-5.1); TOTAL BILIRUBIN 0.9 mg/dL (0.0-1.0)
--- NOTE | 2021-09-05 07:17 | NUR ---
SPOKE TO EXPLAINED PT STATUS AND WEANING PARAMETERS. EXPLAINED PT MENTAL STATUS DUE TO SEDATION. ABG RESULTS GIVEN TO PHYSICIAN. PHYSICIAN STATES ONCE SEDATION WEARS OFF AND PT IS AWAKE TO EXTUBATE.
[2021-09-05] MEDS: hydrALAZINE 20 MG/ML VIAL IVP PRN (07:27)
--- NOTE | 2021-09-05 07:30 | NUR ---
RECEIVED REPORT FROM THREADING MACHINE TENDER ROSA MARIA VARGAS.
--- NOTE | 2021-09-05 07:30 | NUR ---
@0630 Versed 2mg ivp given at 0630 as per order received from Dr Schroeder , pt resting comfortably as at this time no agitation effective intervention. @0721 Bedside report given HUMBERTO RN and LITO RN ffor continuity of pt's care as at this time no changes in care plan and pt's condition
[2021-09-05] MEDS: CYANOCOBALAMIN 100 MCG TAB PO SCH (08:15)
[2021-09-05] MEDS: ENOXAPARIN 30 MG/0.3 ML SYR SUBQ SCH (08:15)
[2021-09-05] MEDS: PANTOPRAZOLE 40 MG INJ VIAL IVP SCH (08:16)
[2021-09-05] MEDS: THIAMINE 100 MG TAB PO SCH (08:16)
--- NOTE | 2021-09-05 09:12 | NUR ---
JESSICA FROM POISON CONTROL CALLED, UPDATED REGARDING PT CONDITION AND UPDATED LABS/VS. JESSICA SAID SHE WILL CALL BACK IF THE TEAM HAS ANY RECOMMENDATIONS.
[2021-09-05] MEDS: levETIRAcetam 750 MG in NACL 0.9% 100 ML IV SCH ×2 (09:30→21:39)
--- NOTE | 2021-09-05 09:30 | NUR ---
PATIENT SEDATED RASS -2. ETT IN PLACE. FI02 24 PEEP 5 PEAK 10 PEEPE5 RR 18. LUNGS CLEAR TO AUSCULTATION. NG TUBE INTACT AND PATIENT IS ON JEVITY 1.2 FEEDING AT 20ML/HR. RESIDUAL 5ML. HOUGH CATHETER INTACT AND DRAINING WELL. PATIENT BP 170/90. PATIENT HAS HYDRALAZINE PRN ORDER FOR HIGH BP. IV SITE ON LEFT UPPER ARM INTACT. LEGS ELEVATED ON PILLOWS. PERIPHERAL PULSES FELT ON ALL EXTREMITIES. PRECEDEX 1.2MCG/MIN. CONTINUOUS NS 0.9% RUNNING AT 80ML/HR.
--- NOTE | 2021-09-05 09:35 | NUR ---
POISON CONTROL CALLED TO RECOMMEND GIVING MAGNESIUM 2G, KEEPING MAG >2.0 AND K >4.0. TEXTED DR HALL, HE ORDERED TO CHANGE THE PARAMETERS OF PRN MAG RIDER AND PRN KCL. Addendum: 09/05/21 at 1001 by Maggy Bates RN JESSICA HANNAH [facility]ISON [facility] ALSO MENTIONED THAT KEPPRA IS NOT INDICATED FOR DRUG INDUCED SEIZURES. BENZODIAZEPINES ARE INDICATED FOR DRUG INDUCED SEIZURES, WHICH ARE ALREADY ORDERED PRN FOR THIS PT.
--- NOTE | 2021-09-05 11:30 | NUR ---
PATIENT STILL SEDATED AND SLEEP. PRN HYDRALAZINE EFFECT DUE TO BP DECREASING TO RANGE OF 120/70. RT WAITING FOR PATIENT TO WAKE UP TO TAKE OUT ETT TUBE.
[2021-09-05] MEDS: MAG SULF 2000 MG/WATER PREMIX 50 ML IV PRN (11:33)
--- NOTE | 2021-09-05 12:21 | NUR ---
PT STILL REMAINS SLEEPY AND LETHARGIC AT THIS TIME NOT AWAKE AND ALERT ENOUGH FOR EXTUBATION. WILL CONTINUE TO MONITOR PT MENTAL STATUS FOR EXTUBATION. NURSE AWARE OF STATUS.
--- NOTE | 2021-09-05 12:50 | NUR ---
PT AWAKE AND ABLE TO FOLLOW COMMANDS. LEAK HEARD AROUND CUFF WHEN DEFLATED. PT TOLERATING CPAP WELL. PER AND MENTAL STATUS PT EXTUBATED AND PLACED ON 3LNC. NURSE BEDSIDE AND AWARE. WILL CONTINUE TO MONITOR.
--- NOTE | 2021-09-05 13:50 | NUR ---
PATIENT AWAKE AND RT WAS CALLED TO TAKE OUT ETT TUBE. EXTUBATION SUCCESSFUL WITHOUT ANY COMPLICATIONS.
[2021-09-05] MEDS: GAUZE TP SCH (13:56)
--- NOTE | 2021-09-05 15:30 | NUR ---
PRECEDEX DECREASED TO 0.7MCG/MIN. PATIENT REPOSITIONED Q2H.
[2021-09-05] MEDS: KCL 20 MEQ/WATER INJ PREMIX 200 ML IV PRN (15:42)
[2021-09-05] MEDS: LORazepam 1 MG TAB PO SCH (17:20)
--- NOTE | 2021-09-05 18:56 | NUR ---
DR. YOUNG ORDERED TO KEEP PRECEDEX FOR NOW AND TO DISCONTINUE HOUGH. ALSO ORDERED FOR SWALLOW EVAL. HOUGH TAKEN OUT SUCCESSFULLY. PATIENT SEEMS COMFORTABLE AND SEEMS TO BE ADJUSTING WELL POST EXTUBATION.
--- NOTE | 2021-09-05 19:05 | NUR ---
ENDORSED BEDSIDE REPORT WITH HUMBERTO RN TO ALICIA MAYERS RN FOR CONTINUITY OF CARE. ALL QUESTIONS ANSWERED.
--- NOTE | 2021-09-05 19:45 | NUR ---
@1918 Assumed pt care bedside report received from Mesfin RN, met pt awake alert confused oriented x 2, reorientation to the unit, education on care plan poor concentration, denies pain attempting to climb out of bed fighting restraints, ongoing support to alleviates anxiety, O2 2lters O2 SAT 99% no sign of shortness of breadth, high blood pressure noted due to agitation and restlessness, enhanced close monitoring for safety, repositioned in bed for comfort and wuill continue to monitor and treat as per care plan.
--- NOTE | 2021-09-05 19:49 | NUR ---
On pt assessment found the left upper extremities swollen with all IV sites inflirtrated,/phlebitis all iv drips still infusing and pt complain of pain on the arm. Tiffany CRANE also witnessed this incident at the bedside as at this time attempting to start new IV.
--- NOTE | 2021-09-05 21:10 | NUR ---
Water given as per pt requests drank no problem with swallowing, restraints released, skin checked and voids in urinal 350Cc. Also received call from poison controls centre spoke to LEONARD checked on pt's condition ongoing tx, pt's response to treatments vitals signs stable recommended to include liver panel and CPK with morning labs order placed.
[2021-09-06] VITALS (24 sets, daily range): BP systolic 108–186; BP diastolic 36–114
[2021-09-06] MEDS: hydrALAZINE 20 MG/ML VIAL IVP PRN ×3 (00:51→15:46)
[2021-09-06] MEDS: LORazepam 2 MG/ML VIAL IM/IVP PRN ×2 (00:52→22:01)
[2021-09-06] MEDS: PIPERACILLIN/TAZOBACTAM 2.25 GM in DEXTROSE 5% 50 ML IV SCH ×3 (00:52→18:50)
[2021-09-06] MEDS: GAUZE TP SCH ×2 (00:53→13:00)
--- NOTE | 2021-09-06 01:30 | NUR ---
pt still restless awake asking elevated blood pressure, 164/92 hr 71 Hydralazine 10mg ivp and Ativan 2mg given it was effective blood pressure now 133/78 HR 71 and restful . pt is safe on the unit as at this time ongoing monitoring.
--- NOTE | 2021-09-06 03:30 | NUR ---
pt very delusional, belligerent unable to follow direction asking for his "bag pack" wallet, to be discharged that he wants to go home, legs over the rail attempting to get out of bed, restraints released but he pulled out the NGT, ongoing persuasion, redirection education and closed monitoring .
[2021-09-06] MEDS: NACL 0.9% 1,000 ML IV SCH ×2 (04:34→16:55)
[2021-09-06 05:49] LABS: BASOPHILS % (AUTO) 0.5 % (0.0-2.0); EOSINOPHILS # (AUTO) 0.2 K/uL (0-0.4); EOSINOPHILS % (AUTO) 1.8 % (0.0-4.0); HEMATOCRIT 34.8 % (36-52); HEMOGLOBIN 11.6 g/dL (12.0-18.0); LYMPHOCYTES # (AUTO) 0.8 K/uL (2.0-11.5); LYMPHOCYTES % (AUTO) 8.9 % (20.5-51.1); MEAN CORPUSCULAR HEMOGLOBIN 32 pg (27-31); MEAN CORPUSCULAR HGB CONC 33 g/dL (33-37); MEAN CORPUSCULAR VOLUME 95.7 fL (80-94); MONOCYTES # (AUTO) 1.1 K/uL (0.8-1.0); MONOCYTES % (AUTO) 12.4 % (1.7-9.3); NEUTROPHILS # (AUTO) 6.6 K/uL (1.8-7.7); NEUTROPHILS % (AUTO) 76.4 % (42.2-75.2); PLATELET COUNT (AUTO) 165 K/uL (140-450); RED BLOOD CELL COUNT(AUTO) 3.64 MIL/uL (4.20-6.10); RED CELL DISTRIBUTION WIDTH 16.5 % (11.6-13.7); WHITE BLOOD COUNT (AUTO) 8.7 K/uL (4.8-10.8)
[2021-09-06 06:03] LABS: ALBUMIN 2.9 g/dL (3.4-5.0); ASPARTATE AMINOTRANSFERASE 154 U/L (15-37); BILIRUBIN,DIRECT 0.4 mg/dL (0.0-0.3); TOTAL BILIRUBIN 0.9 mg/dL (0.0-1.0)
[2021-09-06 06:20] LABS: ANION GAP 15.8 (8-16); CARBON DIOXIDE 22.1 mmol/L (21-32); CREATININE 0.5 mg/dL (0.6-1.3); MAGNESIUM 1.7 mg/dL (1.8-2.4); POTASSIUM 3.9 mmol/L (3.5-5.1); TOTAL BILIRUBIN 0.9 mg/dL (0.0-1.0)
--- NOTE | 2021-09-06 07:25 | NUR ---
Change of shift bedside report given to Enrique RNS for continuity of care as at this time pt awake alert but confused vital signs stable and safe on the unit
--- NOTE | 2021-09-06 07:27 | NUR ---
RECEIVED REPORT FROM DEONNA VARGAS.
--- NOTE | 2021-09-06 07:58 | NUR ---
PATIENT ON CONTINUOUS DRIP PRECEDEX AT 0.4MCG/MIN AND NS 0.9% AT 80ML/HR. A&O X2. PATIENT HAS MUMBLED SPEECH BUT KILN TRANSFER OPERATOR CAN UNDERSTAND SOME WORDS HE IS SAYING. LUNGS CLEAR TO AUSCULTATION. NO SIGNS OF SOB OR . NG TUBE REPORTEDLY PULLED OUT BY PT DURING FRONT OFFICE HELP AND THAT PATIENT CAN TAKE PILLS ORALLY. BOWEL SOUNDS ACTIVE. FRONT OFFICE HELP RN REPORTED PATIENT CAN USE URINAL. HIGH BP AT THIS TIME AROUND 160/80. PATIENT HAS PRN HYDRALAZINE FOR SYSTOLIC BP OVER 160. PATIENT DENIES ANY FEELINGS OF PAIN.
[2021-09-06] MEDS: PANTOPRAZOLE 40 MG INJ VIAL IVP SCH (08:26)
[2021-09-06] MEDS: THIAMINE 100 MG TAB PO SCH (08:27)
[2021-09-06] MEDS: CYANOCOBALAMIN 100 MCG TAB PO SCH (08:27)
[2021-09-06] MEDS: LORazepam 1 MG TAB PO SCH ×3 (08:27→16:24)
[2021-09-06] MEDS: ENOXAPARIN 30 MG/0.3 ML SYR SUBQ SCH (08:29)
[2021-09-06] MEDS: levETIRAcetam 750 MG in NACL 0.9% 100 ML IV SCH ×2 (09:17→21:14)
--- NOTE | 2021-09-06 10:28 | NUR ---
PHONE CALL TO DR. BAEK. BROOKE STATED PATIENT IS STABLE FOR TRANSFER.
--- NOTE | 2021-09-06 10:30 | NUR ---
UPDATED PATIENT CONTROL OF LATEST EKG RESULTS. THEY SAID TO REPEAT EKG WHEN HR GOES DOWN TO 80'S OR 90'S.
--- NOTE | 2021-09-06 10:34 | NUR ---
TEXTED DR HALL TO SEE IF HE WANTS TO DOWNGRADE PT TO TELE, HE SAID YES. HE ALSO ORDERED CLONIDINE PRN FOR HTN. HE ALSO ORDERED TO INCREASE ATIVAN TO 2MG TID.
--- NOTE | 2021-09-06 10:35 | NUR ---
TEXTED DR. HALL ABOUT TRANSFER ORDERS AND PT UPDATE.
[2021-09-06] MEDS: POTASSIUM CHLORIDE 20% 40 MEQ/15 ML UDC GT PRN (10:44)
[2021-09-06] MEDS: MAG SULF 2000 MG/WATER PREMIX 50 ML IV PRN (10:45)
[2021-09-06] MEDS ORDERED: CLONIDINE HYDROCHLORIDE 0.1 MG TAB PO PRN (11:25)
--- NOTE | 2021-09-06 12:00 | NUR ---
PT IN NO ACUTE DISTRESS. AAOX4, ABLE TO RECALL THE NAME, YEAR, MONTH, AND PRESIDENT. HE DENIES HE HAD A SEIZURE. HE SAYS HE "FELL BECAUSE [HE] WAS DRUNK". EDUCATED PT ABOUT HIS SEIZURES, BUT PT DENIES. TRYING TO GET OUT OF BED, WILL CONTINUE TO REORIENT PT AND MONITOR AT THE BEDSIDE.
--- NOTE | 2021-09-06 13:00 | NUR ---
PATIENT URINE OUTPUT 490ML.
--- NOTE | 2021-09-06 14:23 | NUR ---
09/06/21 RD FOLLOW UP COMPLETED PLEASE REFER TO NUTRITION ASSESSMENT UNDER CARE ACTIVITY FOR ESTIMATED NUTRITIONAL NEEDS. 1. IF PASSES SWALLOW EVAL, RECOMMEND REGULAR DIET WITH TEXTURE MODIFICATION PER SLT RECOMMENDATIONS -RECOMMEND ENSURE BID FOR NUTRITION SUPPORT IF ON PO DIET 2. IF FAILS SWALLOW EVAL, RECOMMEND CONTINUING ON NUTRITION SUPPORT 3. RD TO FOLLOW-UP 2-3 DAYS, HIGH RISK ENEDINA BELLAMY RD
[2021-09-06] MEDS: fentaNYL citrate 0.05 MG/ML VIAL IVP PRN (16:20)
--- NOTE | 2021-09-06 16:32 | NUR ---
PT REMAINS AGITATED, REPOSITIONED PT AND BL SOFT WRIST RESTRAINTS. HE CONTINUES TO TRY TO GET OUT THE BED AND LEAVE BECAUSE HE SAYS HE "HAS WORK TO DO" REQUESTING VODKA AND BEER. COMMUNICATED WITH DR HALL POSSIBLE ALC WITHDRAWAL.
--- NOTE | 2021-09-06 17:10 | NUR ---
SEEN AND EXAMINED BY DR HALL. ORDERS RECEIVED.
--- NOTE | 2021-09-06 17:15 | NUR ---
SEEN AND EXAMINED BY DR HANDLEY. ORDERS RECEIVED.
[2021-09-06] MEDS ORDERED: LORazepam 1 MG TAB PO PRN (17:50)
--- NOTE | 2021-09-06 19:00 | NUR ---
ENDORSED CARE TO MANAGER DATA WAREHOUSING ROSA MARIA GALLO.
--- NOTE | 2021-09-06 19:20 | NUR ---
RECEIVED REPORT FROM DAY SHIFT (ROSA MARIA PAUL). PATIENT CURRENTLY AWAKE AND ALERT; PATIENT IS ORIENTED X3; HOWEVER PATIENT CONTINUES TO BE RESTRAINED (SOFT) BILATERAL WRIST. PATIENT ON ROOM AIR, ABLE TO USE BED CERVANTES AND URINAL WITH ASSISTANCE. PATIENT REQUIRES FREQUENT RE-ORIENTATION FOR BED SAFETY
[2021-09-06] MEDS: QUEtiapine FUMARATE 25 MG TAB PO SCH (21:23)
--- NOTE | 2021-09-06 21:38 | NUR ---
PATIENT HAS TRANSFER ORDERS FOR TELEMETRY RECEIVED CALL FROM KENDRA; [facility] WILL GIVE REPORT TO BESIDE NURSE
[2021-09-06] MEDS ORDERED: LORazepam 1 MG TAB PO SCH (22:00)
--- NOTE | 2021-09-06 22:11 | NUR ---
PATIENT TRANSFERRED TO [facility], BED 123B. ENDORSED PATIENT TO LINDA CRANE. ALL QUESTIONS ANSWERED
[2021-09-06] MEDS: ACETAMINOPHEN 325 MG TAB PO PRN (23:06)
[2021-09-07] MEDS: GAUZE TP SCH ×2 (01:00→13:00)
[2021-09-07] MEDS: LORazepam 2 MG/ML VIAL IM/IVP PRN ×2 (02:17→08:33)
[2021-09-07] MEDS: PIPERACILLIN/TAZOBACTAM 2.25 GM in DEXTROSE 5% 50 ML IV SCH ×2 (02:32→10:02)
[2021-09-07 03:00] VITALS: BP 159/60
--- NOTE | 2021-09-07 03:41 | NUR ---
RECEIVED REPORT FROM COMPENSATION ADJUSTER SABINO AND ASSUMED CARE OF THIS PATIENT, HE IS RESTLESS AND AGITATED, RECEIVED ATIVAN TABS BUT NO CHANGE, HIS TEMPERATURE HIGH, GAVE HIM TYLENOL. PATIENT OBSERVED BUT HE CONTINUED TO BE RESTLESS, PULLED HIS IV OUT MOVING IN BED FROM SIDE TO SIDE DESPITE HAVING RESTRAINT, STARTED TWITCHING AND BITING HIS TEETH THEN HE WAS GIVEN HIS PRN IV ATIVAN AND HE CALMED DOWN. ALL HIS OTHER SCHEDULED MEDICATIONS GIVEN. PERIPHERAL LINE REPLACED WITH 18 GAUGE ON THE RIGHT ARM AND NS RUNNING AT 80. WILL CONTINUE TO MONITOR HIM.
--- NOTE | 2021-09-07 04:26 | NUR ---
PATIENT RESTED FOR A SHORT TIME AND NOW HE IS RESTLESS AGAIN , AGITATED,SWEATING BLOOD PRESSURE NOW IS 174/103, PRN HYDRALAZINE GIVEN AND HE IS ALSO TACHY RUNNING IN 140S I HAVE CONTACTED THE MD STANLEY ON WHAT RECOMMENDATIONS HE WOULD WANT ME TO TAKE AT THIS TIME.
[2021-09-07] MEDS: hydrALAZINE 20 MG/ML VIAL IVP PRN (04:38)
[2021-09-07] MEDS: HYDROcodone/APAP 5/325 MG 1 TAB TAB PO PRN (04:44)
[2021-09-07] MEDS: NACL 0.9% 1,000 ML IV SCH (05:25)
[2021-09-07 06:24] LABS: ALBUMIN 3.4 g/dL (3.4-5.0); ANION GAP 18.6 (8-16); CREATININE 0.7 mg/dL (0.6-1.3); MAGNESIUM 1.7 mg/dL (1.8-2.4); POTASSIUM 3.6 mmol/L (3.5-5.1); TOTAL BILIRUBIN 1.2 mg/dL (0.0-1.0)
[2021-09-07 06:47] VITALS: BP 160/77
[2021-09-07 06:51] LABS: BASOPHILS % (AUTO) 0.5 % (0.0-2.0); EOSINOPHILS % (AUTO) 0.1 % (0.0-4.0); HEMATOCRIT 34.4 % (36-52); HEMOGLOBIN 11.6 g/dL (12.0-18.0); LYMPHOCYTES # (AUTO) 0.7 K/uL (2.0-11.5); LYMPHOCYTES % (AUTO) 8.5 % (20.5-51.1); MEAN CORPUSCULAR HEMOGLOBIN 32 pg (27-31); MEAN CORPUSCULAR HGB CONC 34 g/dL (33-37); MEAN CORPUSCULAR VOLUME 94.8 fL (80-94); MONOCYTES # (AUTO) 1.5 K/uL (0.8-1.0); MONOCYTES % (AUTO) 17.4 % (1.7-9.3); NEUTROPHILS # (AUTO) 6.3 K/uL (1.8-7.7); NEUTROPHILS % (AUTO) 73.5 % (42.2-75.2); PLATELET COUNT (AUTO) 198 K/uL (140-450); RED BLOOD CELL COUNT(AUTO) 3.63 MIL/uL (4.20-6.10); RED CELL DISTRIBUTION WIDTH 16.6 % (11.6-13.7); WHITE BLOOD COUNT (AUTO) 8.6 K/uL (4.8-10.8)
--- NOTE | 2021-09-07 07:04 | NUR ---
MD STANLEY CONTACTED CONCERNING THIS PATIENT'S CONDITION AND WHAT THIS WINDOW FRAMER DID BUT MD DID NOT CALL BACK, PATIENT IS STILL RESTLESS, AGITATED AND FIGHTING DESPITE MEDICATION GIVEN, HE IS STILL SINUS TACH IN THE 140S , HIS BLOOD PRESSURE STILL RUNNING HIGH DESPITE ANTI HYPERTENSIVES, HE IS STILL ON RESTRAINTS, TO ENDORSE TO ONCOMING SHIFT FOR CONTINUITY OF MANAGEMENT AND CARE OF THIS PATIENT.
--- NOTE | 2021-09-07 07:10 | NUR ---
RECEIVED REPORT FROM NIGHTSHIFT NURSE FOR CONTINUITY OF CARE. PT IS AWAKE, A/OX1 WITH SLURRED AND CONFUSED SPEECH. BREATHING EVEN, LABORED FROM STRAINING ON ROOM AIR. PT IS INCONTINENT OF THE BOWELS AND BLADDER. ABRASION NOTED ON RIGHT SIDE FOREHEAD AND KNEES. PT IS ON 2-POINT SOFT RESTRAINTS, SKIN UNDER RESTRAINTS CLEAR AND INTACT. DR. HALL RENEWED ORDER PT ATTEMPTED TO KICK HIS LEGS OUT, PULL OUT HIS IV, AND WAS SCRATCHING AT THE BEDDING RN AND ETCHER ENAMELING HANDS. PT WAS VERY SHAKY, CONFUSED AND INCOHERENT. PRN ATIVAN GIVEN, WITH SCHEDULED LIBRIUM. PER NIGHTSHIFT NURSE, PRN HYDRALAZINE WAS GIVEN AT 0400 FOR HTN.
[2021-09-07 08:00] VITALS: BP_SYST 134; BP_SYST 164; BP_DIAS 82
[2021-09-07] MEDS: PANTOPRAZOLE 40 MG INJ VIAL IVP SCH (08:33)
[2021-09-07] MEDS: THIAMINE 100 MG TAB PO SCH (08:34)
[2021-09-07] MEDS: ENOXAPARIN 30 MG/0.3 ML SYR SUBQ SCH (08:35)
[2021-09-07] MEDS: levETIRAcetam 750 MG in NACL 0.9% 100 ML IV SCH (08:36)
[2021-09-07] MEDS ORDERED: chlordiazePOXIDE 25 MG CAP PO SCH (09:00)
[2021-09-07] MEDS: CYANOCOBALAMIN 100 MCG TAB PO SCH (09:58)
[2021-09-07] MEDS: DEXT 5% / NACL 0.45% 1,000 ML IV SCH ×2 (10:01→21:12)
--- NOTE | 2021-09-07 10:30 | NUR ---
PER MD, LIBRIUM WAS INCREASED DUE TO INCREASED PT AGITATION, PRN VALIUM 5MG Q4 PRN WAS ORDERED. RN AND PORTABLE PINCH RIVETER AT THE BEDSIDE, PT STILL ATTEMPTING TO KICK LEGS OUT OF BED. BED BATH GIVEN.
[2021-09-07 12:00] VITALS: BP 137/80
--- NOTE | 2021-09-07 12:00 | NUR ---
PT VISUALLY ASSESSED, PT ATTEMPTED TO GET OUT OF BED WHILE CHECKING RESTRAINTS, SKIN UNDER RESTRAINTS CLEAN AND INTACT. PT STILL CONFUSED WITH INCOHERENT SPEECH.
[2021-09-07] MEDS: chlordiazePOXIDE 25 MG CAP PO SCH ×2 (12:03→17:25)
[2021-09-07] MEDS: DIAZEPAM PFS 10 MG/2 ML SYR IVP PRN ×2 (12:04→16:47)
--- NOTE | 2021-09-07 14:00 | NUR ---
PT VISUALLY ASSESSED, PT ATTEMPTED TO GET OUT OF BED WHILE CHECKING RESTRAINTS, SKIN UNDER RESTRAINTS CLEAN AND INTACT. PT STILL CONFUSED WITH INCOHERENT SPEECH.
[2021-09-07 16:00] VITALS: BP 139/96
--- NOTE | 2021-09-07 16:50 | NUR ---
PT VISUALLY ASSESSED, PT ATTEMPTED TO GET OUT OF BED WHILE CHECKING RESTRAINTS, SKIN UNDER RESTRAINTS CLEAN AND INTACT. PT STILL CONFUSED WITH INCOHERENT SPEECH. PRN VALUIM GIVEN FOR 12-LEAD EKG, PT WAS AGITATED AND KICKING LEGS DURING EKG.
--- NOTE | 2021-09-07 18:00 | NUR ---
PT VISUALLY ASSESSED, PT ATTEMPTED TO GET OUT OF BED WHILE CHECKING RESTRAINTS, SKIN UNDER RESTRAINTS CLEAN AND INTACT. PT STILL CONFUSED WITH INCOHERENT SPEECH. BED LINEN CHANGED.
[2021-09-07] MEDS: PIPERACILLIN/TAZOBACTAM 3.375 GM in DEXTROSE 5% 50 ML IV SCH (18:31)
--- NOTE | 2021-09-07 19:10 | NUR ---
ENDORSED [facility] TO [facility] MED[facility] FOR CONTINUITY OF CARE. PT IN STABLE CONDITION.
--- NOTE | 2021-09-07 19:15 | NUR ---
RECEIVED REPORT FROM DAY RN FOR CONTINUITY OF CARE. PT CONFUSED, GARBLED SPEECH, TRYING TO GET OUT OF BED. BREATHING EVEN, LABORED,ROOM AIR.O2 SAT AT 97%. ABRASION NOTED ON RIGHT SIDE FOREHEAD AND KNEES. PT IS ON 2-POINT SOFT WRIST RESTRAINTS, SKIN UNDER RESTRAINTS CLEAR AND INTACT. IV ON R HAND G20, INFUSING WELL. ALL PRECAUTIONS IN PLACE. CALL LIGHT WITHIN REACH. WILL CONTINUE TO MONITOR.
[2021-09-07 20:00] VITALS: BP 139/73
[2021-09-07] MEDS ORDERED: CRUSHER, PILL MC ONE (20:49)
[2021-09-07] MEDS ORDERED: levETIRAcetam 100 MG/ML ORASYR PO SCH (21:00)
--- NOTE | 2021-09-07 21:00 | NUR ---
SCHEDULED MEDICATIONS GIVEN. MEDS CRUSHED AND MIXED WITH APPLE SAUCE. PT WAS ABLE TO TOLERATE FEEDING.
[2021-09-07] MEDS: levETIRAcetam 100 MG/ML ORASYR PO SCH (21:12)
[2021-09-07] MEDS: QUEtiapine FUMARATE 25 MG TAB PO SCH (21:12)
--- NOTE | 2021-09-07 23:00 | NUR ---
PT CLEANED AND CHANGED. PT TOLERATED WELL. WILL CONTINUE TO MONITOR.
[2021-09-08] VITALS: BP 145/75
--- NOTE | 2021-09-08 01:00 | NUR ---
NEW IV PLACE ON R FOREARM. PT TOLERATED WELL. NO DISTRESS NOTED. WILL CONTINUE TO MONITOR.
[2021-09-08] MEDS: GAUZE TP SCH ×2 (01:12→12:06)
[2021-09-08] MEDS: PIPERACILLIN/TAZOBACTAM 3.375 GM in DEXTROSE 5% 50 ML IV SCH ×3 (02:51→17:40)
--- NOTE | 2021-09-08 02:55 | NUR ---
SCHEDULED ZOSYN GIVEN. NO DISTRESS NOTED.PT STILL TRYING TO GET OUT OF BED,WILL CONTINUE TO OBSERVE.
[2021-09-08 04:00] VITALS: BP 141/70
[2021-09-08] MEDS: MAG SULF 2000 MG/WATER PREMIX 50 ML IV PRN (04:11)
--- NOTE | 2021-09-08 04:17 | NUR ---
mag 1.7. mag rider given per protocol.
[2021-09-08 06:30] LABS: BASOPHILS # (AUTO) 0.1 K/uL (0.00-0.22); BASOPHILS % (AUTO) 1.4 % (0.0-2.0); EOSINOPHILS # (AUTO) 0.2 K/uL (0-0.4); EOSINOPHILS % (AUTO) 3.7 % (0.0-4.0); HEMATOCRIT 31.9 % (36-52); HEMOGLOBIN 10.5 g/dL (12.0-18.0); LYMPHOCYTES # (AUTO) 0.7 K/uL (2.0-11.5); LYMPHOCYTES % (AUTO) 13.9 % (20.5-51.1); MEAN CORPUSCULAR HEMOGLOBIN 31 pg (27-31); MEAN CORPUSCULAR HGB CONC 33 g/dL (33-37); MEAN CORPUSCULAR VOLUME 94.3 fL (80-94); MONOCYTES % (AUTO) 20.2 % (1.7-9.3); NEUTROPHILS # (AUTO) 3.1 K/uL (1.8-7.7); NEUTROPHILS % (AUTO) 60.8 % (42.2-75.2); PLATELET COUNT (AUTO) 211 K/uL (140-450); RED BLOOD CELL COUNT(AUTO) 3.38 MIL/uL (4.20-6.10); RED CELL DISTRIBUTION WIDTH 17.1 % (11.6-13.7); WHITE BLOOD COUNT (AUTO) 5.1 K/uL (4.8-10.8)
[2021-09-08 06:54] LABS: ANION GAP 15.1 (8-16); CARBON DIOXIDE 24.7 mmol/L (21-32); CREATININE 0.6 mg/dL (0.6-1.3); MAGNESIUM 2.2 mg/dL (1.8-2.4); TOTAL BILIRUBIN 0.7 mg/dL (0.0-1.0)
[2021-09-08 07:03] LABS: POTASSIUM 2.8 mmol/L (3.5-5.1)
[2021-09-08 09:00] VITALS: BP 131/77
[2021-09-08] MEDS: CYANOCOBALAMIN 100 MCG TAB PO SCH (09:00)
[2021-09-08] MEDS: levETIRAcetam 100 MG/ML ORASYR PO SCH ×2 (09:36→20:36)
[2021-09-08] MEDS: chlordiazePOXIDE 25 MG CAP PO SCH ×3 (09:37→16:30)
[2021-09-08] MEDS: THIAMINE 100 MG TAB PO SCH (09:38)
[2021-09-08] MEDS: PANTOPRAZOLE 40 MG TABEC PO SCH (09:38)
[2021-09-08] MEDS: ENOXAPARIN 30 MG/0.3 ML SYR SUBQ SCH (09:39)
[2021-09-08] MEDS: KCL 20 MEQ/WATER INJ PREMIX 200 ML IV PRN (10:58)
[2021-09-08] MEDS: POTASSIUM CHLORIDE 20% 40 MEQ/15 ML UDC GT PRN (10:59)
[2021-09-08 12:00] VITALS: BP 138/92
--- NOTE | 2021-09-08 13:51 | NUR ---
09/08/21 RD FOLLOW UP COMPLETED PLEASE REFER TO NUTRITION ASSESSMENT UNDER CARE ACTIVITY FOR ESTIMATED NUTRITIONAL NEEDS. 1. CONTINUE MECHANICAL SOFT DIET TOLERATED 2. RECOMMEND HEALTHSHAKES BID PER RD PROTOCOL 3. MONITOR PO INTAKE 4. RD TO FOLLOW-UP 3-5 DAYS, MODERATE RISK ENEDINA BELLAMY RD
[2021-09-08] MEDS: DEXT 5% / NACL 0.45% 1,000 ML IV SCH (16:00)
[2021-09-08 17:36] VITALS: BP 132/81
--- NOTE | 2021-09-08 18:40 | NUR ---
0730 Pt. in bed, sleeping, marito. wrist restraints in place, hob at 30 degrees, will monitor. 0900 Hob at 40 degrees, took po meds well, given some breakfast, no aspiration noted. Protocol for restraints being followed 1200 Pt. turned q2, vss, restraints loosened prn but pt. still confused and hitting at staff 1600 Pt. resting, restraints in place no injury noted, hob at 40 degrees, no resp. distress 1800 Pt. sleeping, vss, hob at 30 degrees, turned and kept dry and clean this shift, Addendum: 09/08/21 at 1844 by Agency 01 ROSA MARIA RN 1000 Pt. with k level of 2.3 given prn ivpb and po potassium as ordered, pt. tolerated well. SR on monitor.
--- NOTE | 2021-09-08 19:15 | NUR ---
RECEIVED BEDSIDE REPORT FROM DAY SHIFT NURSE. PATIENT IS SLEEPING AROUSABLE BY TOUCH AND NAME. RESPIRATION EVEN UNLABORED ON ROOM AIR. NO DISTRESS NOTED. SKIN IS WARM AND DRY. IV PATENT AND INTACT. RESTRAIN NOTED ON BILATERAL WRIST. PLAN OF CARE UPDATED. ALL SAFETY MEASURES IN PLACE. BED IS AT LOW POSITION. CALL LIGHT WITHIN REACH WILL CONTINUE TO MONITOR.
[2021-09-08 20:00] VITALS: BP 132/77
--- NOTE | 2021-09-08 20:36 | NUR ---
ALL SCHEDULED MEDS WERE GIVEN PER ORDER. WILL CONTINUE TO MONITOR.
[2021-09-08] MEDS: QUEtiapine FUMARATE 25 MG TAB PO SCH (20:37)
--- NOTE | 2021-09-08 23:14 | NUR ---
MADE ROUNDS. PATIENT SOILED, PROVIDED PERICARE.
[2021-09-09] MEDS: PIPERACILLIN/TAZOBACTAM 3.375 GM in DEXTROSE 5% 50 ML IV SCH ×3 (01:16→17:53)
[2021-09-09] MEDS: GAUZE TP SCH ×2 (01:16→12:59)
--- NOTE | 2021-09-09 01:43 | NUR ---
WOUND CARE PROVIDED
[2021-09-09 02:00] VITALS: BP 125/78
[2021-09-09 04:00] VITALS: BP 148/93
--- NOTE | 2021-09-09 04:00 | NUR ---
VITALS WERE TAKEN.
[2021-09-09] MEDS: DEXT 5% / NACL 0.45% 1,000 ML IV SCH ×2 (04:39→15:10)
--- NOTE | 2021-09-09 05:30 | NUR ---
AM CARE PROVIDED
--- NOTE | 2021-09-09 07:30 | NUR ---
PT HAS BEEN ENDORSED BY TYRE FINISHER AND EXAMINER NURSE FOR CONTINUITY OF CARE, POC DISCUSSED. PT IS RESTING IN BED ON SOFT WRIST RESTRAINTS, RESTRAINT CHECK COMPLETED. PT ON RIGHT HAND 22G AND LEFT FOREARM 22G WITH DRESSING DRY AND INTACT. D5 HALF NS @75 ML. PT INCONTINENT WITH DIAPER ON. ALL SAFETY MEASURES IN PLACE, CALL LIGHT WITHIN REACH. WILL CONTINUE TO MONITOR
[2021-09-09 08:00] VITALS: BP 162/89
--- NOTE | 2021-09-09 09:30 | NUR ---
DMITRY MEDICATION ADMINISTERED PER MD ORDER, PT TOLERATED ADMINISTRATION. PT ON RESTRAINTS, NEURO CHECK COMPLETE, RELEASED FOR 15 MINUTES. CONFUSED, A&OX1, NAME, SAMI SPEAKING. ASSESSMENT COMPLETE, SCAB NOTED ON LEFT KNEE, LEFT EYEBROW, OPEN TO AIR. IV PATENT AND INTACT. PT IS STABLE IN BED WITH NO ACUTE S/S OF DISTRESS. ALL SAFETY MEASURE IS PLACE, CALL LIGHT WITHIN REACH. WILL CONTINUE TO MONITOR.
[2021-09-09] MEDS: chlordiazePOXIDE 25 MG CAP PO SCH ×3 (09:34→16:45)
[2021-09-09] MEDS: CYANOCOBALAMIN 100 MCG TAB PO SCH (09:35)
[2021-09-09] MEDS: PANTOPRAZOLE 40 MG TABEC PO SCH (09:35)
[2021-09-09] MEDS: THIAMINE 100 MG TAB PO SCH (09:35)
[2021-09-09] MEDS: levETIRAcetam 100 MG/ML ORASYR PO SCH ×2 (09:36→20:38)
[2021-09-09] MEDS: ENOXAPARIN 30 MG/0.3 ML SYR SUBQ SCH (09:38)
--- NOTE | 2021-09-09 11:30 | NUR ---
PT HAS BEEN CLEANED, REPOSITIONED, NEW LINENS AND GOWN PROVIDED. NEUROCHECK COMPLETED. PT STABLE WITH NO ACUTE S/S OF DISTRESS. ALL SAFETY MEASURES IN PLACE. CALL LIGHT WITHIN REACH. WILL CONTINUE TO MONITOR.
--- NOTE | 2021-09-09 13:00 | NUR ---
DMITRY MEDICATION ADMINISTERED PER MD ORDER, PT TOLERATED ADMINISTRATION. PT AWAKE, CONFUSED IN BED, ATTEMPTING TO GET OUT OF RESTRAINT. REORIENTATION AND DECREASED STIMULI IN PLACE. NEUROCHECK COMPLETE. PT STABLE, ALL SAFETY MEASURES IN PLACE, CALL LIGHT WITHIN REACH. WILL CONTINUE TO MONITOR.
--- NOTE | 2021-09-09 15:00 | NUR ---
UPON ASSESSMENT, PT FOUND WITH LEGS DANGLING FROM BED. WITH ASSISTANCE OF 2, PT LIFTED IN BED, NEUROCHECK COMPLETED. PT STABLE IN BED. ALL SAFETY MEASURES IN PLACE. CALL LIGHT WITHIN REACH. WILL CONTINUE TO MONITOR
[2021-09-09 16:00] VITALS: BP 127/80
--- NOTE | 2021-09-09 17:00 | NUR ---
DMITRY MEDICATION ADMINISTERED PER MD ORDER, PT TOLERATED ADMINISTRATION. PT STABLE IN BED WITH ALL SAFETY MEASURES IN PLACE. NEUROCHECK COMPLETE. WILL CONTINUE TO MONITOR.
--- NOTE | 2021-09-09 17:35 | NUR ---
BM NOTED, PT HAS BEEN CLEANED AND PROVIDED WITH NEW GOWN AND LINENS. NEW IV PLACED TO LEFT FOREARM 20G, PATENT AND INTACT. ALL SAFETY MEASURES IN PLACE. CALL LIGHT WITHIN REACH. WILL CONTINUE TO MONITOR.
--- NOTE | 2021-09-09 18:34 | NUR ---
PT REMAINED STABLE IN BED WITH ALL SAFETY MEASURES IN PLACE, CALL LIGHT WITHIN REACH. WILL ENDORSE TO MEDICAL INSURANCE CODING SPECIALIST NURSE.
--- NOTE | 2021-09-09 19:20 | NUR ---
RECEIVED BEDSIDE REPORT FROM DAY SHIFT NURSE. PATIENT IS AWAKE AND CONFUSED. RESPIRATION EVEN UNLABORED ON ROOM AIR. NO DISTRESS NOTED. SKIN IS WARM AND DRY. IV PATENT AND INTACT. BILATERAL WRIST RESTRAINT NOTED CHECK CIRCULATION, COLOR, AND PULSE. PLAN OF CARE UPDATED. ALL SAFETY MEASURES IN PLACE. BED IS AT LOW POSITION. CALL LIGHT WITHIN REACH. WILL CONTINUE TO MONITOR
--- NOTE | 2021-09-09 20:15 | NUR ---
VITALS WERE TAKEN. INITIAL ASSESSMENT DONE
[2021-09-09] MEDS: QUEtiapine FUMARATE 25 MG TAB PO SCH (20:38)
[2021-09-09] MEDS: HYDROcodone/APAP 5/325 MG 1 TAB TAB PO PRN (20:55)
--- NOTE | 2021-09-09 20:55 | NUR ---
ALL SCHEDULED MEDS WERE GIVEN PER ORDER. PATIENT GRIMACING IN PAIN AND RESTLESS. PRN PAIN MEDS GIVEN PER ORDER. WILL CONTINUE TO MONITOR
--- NOTE | 2021-09-09 22:35 | NUR ---
MADE ROUNDS PATIENT SLEEPING RESPIRATION EVEN UNLABORED ON ROOM AIR.
--- NOTE | 2021-09-10 00:25 | NUR ---
MADE ROUNDS, PATIENT SLEEPING NO DISTRESS NOTED. WILL CONTINUE TO MONITOR.
[2021-09-10] MEDS: PIPERACILLIN/TAZOBACTAM 3.375 GM in DEXTROSE 5% 50 ML IV SCH ×3 (01:52→17:23)
[2021-09-10] MEDS: GAUZE TP SCH ×2 (01:55→13:34)
--- NOTE | 2021-09-10 02:13 | NUR ---
MADE ROUNDS. PATIENT SLEEPING RESPIRATION EVEN UNLABORED.
[2021-09-10 04:00] VITALS: BP 159/80
--- NOTE | 2021-09-10 04:20 | NUR ---
VITALS WERE TAKEN
[2021-09-10] MEDS: DEXT 5% / NACL 0.45% 1,000 ML IV SCH ×2 (04:59→17:51)
--- NOTE | 2021-09-10 05:48 | NUR ---
AM CARE PROVIDED
[2021-09-10 06:02] LABS: BASOPHILS % (AUTO) 0.5 % (0.0-2.0); EOSINOPHILS # (AUTO) 0.2 K/uL (0-0.4); EOSINOPHILS % (AUTO) 2.8 % (0.0-4.0); HEMOGLOBIN 11.4 g/dL (12.0-18.0); LYMPHOCYTES # (AUTO) 1.7 K/uL (2.0-11.5); LYMPHOCYTES % (AUTO) 21.2 % (20.5-51.1); MEAN CORPUSCULAR HEMOGLOBIN 31 pg (27-31); MEAN CORPUSCULAR HGB CONC 34 g/dL (33-37); MEAN CORPUSCULAR VOLUME 93.1 fL (80-94); MONOCYTES # (AUTO) 1.1 K/uL (0.8-1.0); MONOCYTES % (AUTO) 13.6 % (1.7-9.3); NEUTROPHILS # (AUTO) 4.9 K/uL (1.8-7.7); NEUTROPHILS % (AUTO) 61.9 % (42.2-75.2); PLATELET COUNT (AUTO) 284 K/uL (140-450); RED BLOOD CELL COUNT(AUTO) 3.65 MIL/uL (4.20-6.10); RED CELL DISTRIBUTION WIDTH 16.7 % (11.6-13.7); WHITE BLOOD COUNT (AUTO) 7.8 K/uL (4.8-10.8)
[2021-09-10 06:14] LABS: ALBUMIN 2.9 g/dL (3.4-5.0); ANION GAP 13.6 (8-16); CARBON DIOXIDE 25.6 mmol/L (21-32); CREATININE 0.6 mg/dL (0.6-1.3); POTASSIUM 3.2 mmol/L (3.5-5.1); TOTAL BILIRUBIN 0.6 mg/dL (0.0-1.0)
--- NOTE | 2021-09-10 07:25 | NUR ---
ENDORSED PATIENT TO DAY SHIFT NURSE FOR CONTINUITY OF CARE
--- NOTE | 2021-09-10 07:26 | NUR ---
RECEIVED ENDORSEMENT RECRUITER MANAGER NURSE FOR CONTINUITY OF CARE. PATIENT AWAKE RESTLESS, CONFUSED. RESPIRATION EVEN AND NOT LABORED NO SHORTNESS OF BREATH. ON ROOM AIR. IV SITE ON LEFT FORE ARM BRYAN 20 WITH D5 1/2 NS AT 75 CC/HOUR. ALL SAFETY MEASURE IN PLACE.
--- NOTE | 2021-09-10 08:00 | NUR ---
DISCUSSED AND REVIEWED PLAN OF CARE WITH LUZ ELENA DAVIS.
--- NOTE | 2021-09-10 08:28 | NUR ---
DR. STRONG AT BED SIDE ASSESS PATIENT AND ORDER SEROQUEL.
[2021-09-10] MEDS: levETIRAcetam 100 MG/ML ORASYR PO SCH ×2 (09:37→21:17)
[2021-09-10] MEDS: CYANOCOBALAMIN 100 MCG TAB PO SCH (09:46)
[2021-09-10] MEDS: chlordiazePOXIDE 25 MG CAP PO SCH ×3 (09:46→17:42)
[2021-09-10] MEDS: THIAMINE 100 MG TAB PO SCH (09:47)
[2021-09-10] MEDS: PANTOPRAZOLE 40 MG TABEC PO SCH (09:47)
[2021-09-10] MEDS: ENOXAPARIN 30 MG/0.3 ML SYR SUBQ SCH (09:48)
[2021-09-10] MEDS: QUEtiapine FUMARATE 25 MG TAB PO SCH ×2 (09:52→21:16)
--- NOTE | 2021-09-10 09:58 | NUR ---
REFUSED TO EAT BREAKFAST BUT DRINK MILK AND NX TOOK ALL DUE MEDICATION. STILL NOTED WITH RESTLESSNESS. RESTRAINT IN PLACE NO SKIN BREAK DOWN NOTED.
--- NOTE | 2021-09-10 10:50 | NUR ---
WOUND CARE RE-EVALUATION NOTE: SKIN ASSESSMENT DONE NO NEW SKIN BREAKS , ABRASIONS DRY AND NO S/.S OF INFECTION. PT. WITH LOW PRASANNA SCALE AT HIGH RISK, CONTINUE TO FOLLOW PRESSURE INJURY PREVENTION INTERVENTIONS.
--- NOTE | 2021-09-10 10:57 | NUR ---
ROSA MARIA CATHERINE IV ANTIBIOTIC NO ADVERSE REACTION NOTED.
--- NOTE | 2021-09-10 12:00 | NUR ---
PATIENT REPOSITION AND OFFERED LUNCH BUT REFUSED TO EAT BUT DRINK MILK AND JUICE WITH ASSISTANCE.
[2021-09-10] MEDS: POTASSIUM CHLORIDE 20% 40 MEQ/15 ML UDC GT PRN (13:34)
--- NOTE | 2021-09-10 13:34 | NUR ---
GIVEN MEDICATION ORDERED AND POTASSIUM FOR 3.2 LEVEL. TOLERATED WELL.MONITOR FREQUENTLY.
--- NOTE | 2021-09-10 15:00 | NUR ---
PATIENT ON BED RESTING ASLEEP. REPOSITIONED.
[2021-09-10 16:00] VITALS: BP 125/85
--- NOTE | 2021-09-10 17:42 | NUR ---
RESIDENT REPOSITION AND CHANGED. GIVEN MEDICATION TOLERATED WELL.
--- NOTE | 2021-09-10 18:47 | NUR ---
PATIENT TRIED TO FEED BUT NOT EATING EVEN WITH ASSISTANCE AND ENCOURAGEMENT
--- NOTE | 2021-09-10 19:32 | NUR ---
GAVE REPORT TO HIGH SPEED WARPER TENDER NURSE FOR CONTINUITY OF CARE.
--- NOTE | 2021-09-10 19:33 | NUR ---
RECEIVED REPORT FROM ALEJANDRO CRANE, PATIENT WAS STABLE AT THE TIME OF SHIFT REPORT. PATIENT WAS IN BED AWAKE BUT NON VERBAL. NURSING WAS ABLE TO OBSERVE CHEST RISING AND FALLING WITHOUT DISTRESS. NO NOTED S/S OF PAIN/DISCOMFORT AT THIS TIME. NURSING OBSERVED BILATERAL SOFT WRIST RESTRAINS TO PREVENT FALL AND TAKING OFF MEDICALLY NECESSARY EQUIPMENT. THE RENEWAL WILL NEED TO TAKE PLACE TOMORROW AT 0700 IF MEDICALLY NECESSARY OR MD. IV SITE CLEAN AND PATENT. BED NOTED AT THE LOWEST LEVEL, SIDE RAILS UP X 4. CALL LIGHT WITHIN REACH FOR LISTENING TO THE TV FOR MENTAL STIMULATION. NURSING WILL FREQUENT THIS PATIENT'S ROOM FOR ANTICIPATED NEEDS. [email or web address] Addendum: 09/10/21 at 2009 by Bria Arnold LVN RECEIVED REPORT FROM RYAN KULKARNI Addendum: 09/10/21 at 2010 by Bria Arnold LVN RECEIVED REPORT FROM RYAN ALLEN RN. [email or web address]
[2021-09-10 20:00] VITALS: BP 116/51
--- NOTE | 2021-09-10 20:00 | NUR ---
REVIEWED PLAN OF CARE WITH SUSHILA SHORT LVN AND WILL CONTINUE WITH PLAN OF CARE.
--- NOTE | 2021-09-10 21:10 | NUR ---
PATIENT WAS GIVEN ALL EVENING MEDICATIONS WITHOUT INCIDENT. PATIENT WAS ASSISTED IN THE BED TO SIT UPRIGHT TO PREVENT ASPIRATION WHILE EATING OR MEDICATION PASS. SOFT WRIST RESTRAINTS REMAIN ON INTACT AND MEDICALLY NECESSARY. SIDE RAILS UP X 4 AND CALL LIGHT WITHIN REACH FOR TV ENTERTAINMENT. PATIENT REMAINS CLEAN AND DRY AT THIS TIME. NURSING WILL FREQUENT THIS ROOM FOR ANTICIPATED ASSISTANCE. [email or web address]
--- NOTE | 2021-09-10 23:30 | NUR ---
NURSING COMPLETED ROUNDS, NOTED PATIENT IN BED ASLEEP. NO NOTED RESPIRATORY DISTRESS. NO NOTED S/S OF PAIN/DISCOMFORT. CONTINUED ON SOFT RESTRAINTS. SIDE RAILS X 4 CALL LIGHT IN REACH MENTAL STIMULATION. [email or web address]
[2021-09-11] MEDS: GAUZE TP SCH ×2 (01:02→13:00)
[2021-09-11] MEDS: PIPERACILLIN/TAZOBACTAM 3.375 GM in DEXTROSE 5% 50 ML IV SCH ×3 (02:12→17:51)
--- NOTE | 2021-09-11 02:26 | NUR ---
PATIENT NOTED ASLEEP IN BED. NO S/S OF PAIN OR RESPIRATORY DISTRESS. SIDE RAILS UP X 4 CALL LIGHT WITHIN REACT. [email or web address]
--- NOTE | 2021-09-11 03:41 | NUR ---
PATIENT IN BED ASLEEP WHILE NURSING WAS DOING ROUNDS. NO NOTED SEIZURE ACTIVITY AT THIS TIME. SIDE RAILS UP X 4 CALL LIGHT IN REACH. [email or web address]
[2021-09-11 04:00] VITALS: BP 134/43
--- NOTE | 2021-09-11 05:36 | NUR ---
PATIENT WAS RELEASED FROM RESTRAINS ON MULTIPLE OCCASIONS FOR ADL'S AND TURING. PATIENT WAS CHANGED REMAINS CLEAN AND DRY. SIDE RAIL RAILS UP X 4. NO NOTED SEIZURE ACTIVITIES AT THIS TIME. NO NOTED S/S OF PAIN/DISCOMFORT NOR RESPIRATORY PROBLEMS. KEPT CLEAN AND DRY. [email or web address]
[2021-09-11] MEDS: DEXT 5% / NACL 0.45% 1,000 ML IV SCH ×2 (07:10→17:51)
--- NOTE | 2021-09-11 07:36 | NUR ---
ENDORSED PATIENT TO AIDAN CRANE, PATIENT WAS STABLE AT THE CHANGE OF SHIFT. [email or web address]
--- NOTE | 2021-09-11 07:42 | NUR ---
RECEIVED PT FROM NIGHT RN, PT IS ASLEEP AND ON SOFT WRIST RESTRAINT, ON ROOM AIR, IV LINE NOTED ON THE LEFT FOREARM G. 20 WITH D5 1/2 NS INFUSING AT 75 ML/HR, SEIZURE PRECAUTION AND FALL PRECAUTION ENFORCED, NO SIGN OF DISTRESS NOTED AND WILL CONTINUE TO MONITOR PT.
[2021-09-11 08:00] VITALS: BP 117/71
[2021-09-11] MEDS: ENOXAPARIN 30 MG/0.3 ML SYR SUBQ SCH (09:51)
[2021-09-11] MEDS: levETIRAcetam 100 MG/ML ORASYR PO SCH ×2 (09:51→20:47)
[2021-09-11] MEDS: PANTOPRAZOLE 40 MG TABEC PO SCH (09:53)
[2021-09-11] MEDS: QUEtiapine FUMARATE 25 MG TAB PO SCH ×2 (09:54→20:47)
[2021-09-11] MEDS: chlordiazePOXIDE 25 MG CAP PO SCH ×3 (09:54→20:47)
[2021-09-11] MEDS: THIAMINE 100 MG TAB PO SCH (09:55)
--- NOTE | 2021-09-11 09:56 | NUR ---
PT WAS GIVEN THE SCHEDULED AM MEDICATIONS NOW, CRUSHED, TOLERATED AND NO SIGN OF DISTRESS NOTED.
[2021-09-11] MEDS: CYANOCOBALAMIN 100 MCG TAB PO SCH (09:58)
--- NOTE | 2021-09-11 12:12 | NUR ---
DR. STRONG WAS INFORMED TO CLARIFY HIS ORDER FOR ANOTHER 50MG LIBRIUM FOR PT FOR 11:35AM AND SAID TO JUST GIVE THE LIBRIUM SCHEDULED FOR NIGHT. PHARMACIST WAS INFORMED.
--- NOTE | 2021-09-11 14:00 | NUR ---
PT IS SLEEPING AND RESTING, RESTRAINT WAS REMOVED, NO SIGN OF DISTRESS NOTED.
[2021-09-11 16:00] VITALS: BP 107/74
--- NOTE | 2021-09-11 17:31 | NUR ---
PT WAS CLEANED AND REPOSITIONED NOW.
--- NOTE | 2021-09-11 19:25 | NUR ---
ENDORSED PT TO NIGHT RN FOR CONTINUITY OF CARE, PT IS AWAKE, TALKING AND CALM.
--- NOTE | 2021-09-11 19:39 | NUR ---
GET THE REPORT FROM MORNING NURSE, PATIENT IS LYING ON BED, PATIENT IS ALERT ORIENTED X 1-2, PATIENT IS ON 2. SOFT WRIST RESTRAIN , SEIZURE AND ASPIRATION PROACTION IS IN PLACE, CALL LIGHT IS WITHIN THE REACH, WILL CONTINUE TO MONITOR PATIENT.
[2021-09-11 20:00] VITALS: BP 95/61
--- NOTE | 2021-09-11 20:48 | NUR ---
PATIENT IS LYING ON BED, VITAL SIGN IS WITHIN THE NORMAL RANGE,NO ANY COMPLAIN OF PAIN OR SHORTNESS OF BREATH AT THIS TIME, ALL SCHEDULE MEDICATION IS GIVEN PER DOCTOR ORDER, CALL LIGHT IS WITHIN THE REACH, WILL CONTINUE TO MONITOR PATIENT.
[2021-09-11] MEDS: KCL 20 MEQ/WATER INJ PREMIX 200 ML IV PRN (22:37)
--- NOTE | 2021-09-11 22:44 | NUR ---
PATIENT POTASSIUM LAVAL IS 3.2, PATIENT HAS ORDER 20 MEQ 200 ML SO COVERING WITH 20 MEQ 2 BEGS PER PROTOCOL, 50 ML /HOUR X 4 HOUR, VERIFIED ORDER WITH CHARGE NURSE KENDRA AND REGISTRY NURSE BRANDYN , VITAL SIGN IS WITHIN THE NORMAL RANGE, ,CALL LIGHT IS WITHIN THE REACH, WILL CONTINUE TO MONITOR PATIENT.
[2021-09-12] MEDS: GAUZE TP SCH ×2 (00:07→12:29)
--- NOTE | 2021-09-12 00:11 | NUR ---
PATIENT IS LYING ON BED , NO ANY COMPLAIN OF PAIN OR SHORTNESS OF BREATH AT THIS TIME, SIDE RAILS ARE UP X2 AND PADDED,ALL SEIZURE PRECAUTION ARE IN PLACE, CALL LIGHT IS WITHIN THE REACH, WILL CONTINUE TO MONITOR PATIENT,
[2021-09-12] MEDS: PIPERACILLIN/TAZOBACTAM 3.375 GM in DEXTROSE 5% 50 ML IV SCH (01:22)
--- NOTE | 2021-09-12 01:23 | NUR ---
ADMINISTER POTASSIUM PER PROTOCOL 20 MEQ 100MLX 2 BEGS, CALL LIGHT IS WITHIN THE REACH, WILL CONTINUE TO MONITOR PATIENT.
--- NOTE | 2021-09-12 02:18 | NUR ---
CHANGE AND REPOSITION PATIENT.WILL CONTINUE TO MONITOR PATIENT.
[2021-09-12 04:00] VITALS: BP 105/64
--- NOTE | 2021-09-12 04:14 | NUR ---
PATIENT IS LYING ON BED, NO ANY COMPLAIN OF PAIN OR SHORTNESS OF BREATH AT THIS TIME,VITAL SIGN IS WITHIN THE NORMAL RANGE, CALL LIGHT IS WITHIN THE REACH, WILL CONTINUE TO MONITOR PATIENT.
--- NOTE | 2021-09-12 06:22 | NUR ---
PATIENT IS LYING ON BED, NO ANY COMPLAIN OF PAIN OR SHORTNESS OF BREATH AT THIS TIME, CALL LIGHT IS WITHIN THE REACH, WILL CONTINUE TO MONITOR PATIENT.
--- NOTE | 2021-09-12 07:20 | NUR ---
GAVE THE REPORT TO MORNING NURSE DANNIELLE FOR CONTINUOS OF CARE , PATIENT IS STABLE,
[2021-09-12 08:00] VITALS: BP 107/74
[2021-09-12] MEDS: chlordiazePOXIDE 25 MG CAP PO SCH ×2 (09:00→21:16)
[2021-09-12] MEDS: ENOXAPARIN 30 MG/0.3 ML SYR SUBQ SCH (09:00)
[2021-09-12] MEDS: QUEtiapine FUMARATE 25 MG TAB PO SCH ×2 (09:00→21:17)
[2021-09-12] MEDS: THIAMINE 100 MG TAB PO SCH (09:00)
[2021-09-12] MEDS: PANTOPRAZOLE 40 MG TABEC PO SCH (09:00)
[2021-09-12] MEDS: CYANOCOBALAMIN 100 MCG TAB PO SCH (09:00)
[2021-09-12] MEDS: levETIRAcetam 100 MG/ML ORASYR PO SCH ×2 (09:00→21:16)
[2021-09-12] MEDS: DEXT 5% / NACL 0.45% 1,000 ML IV SCH (10:00)
[2021-09-12 16:00] VITALS: BP 110/78
--- NOTE | 2021-09-12 19:35 | NUR ---
RECEIVED PATIENT FROM AM NURSE FOR CONTINUITY OF CARE.PT IS STABLE
[2021-09-12 20:00] VITALS: BP 119/72
--- NOTE | 2021-09-12 21:35 | NUR ---
ALL MEDICATIONS GIVEN AT THIS TIME,NO ADVERSE REACTIONS NOTED
--- NOTE | 2021-09-12 22:32 | NUR ---
09/12/21 RD FOLLOW UP COMPLETED. PLEASE REFER TO NUTRITION ASSESSMENT UNDER CARE ACTIVITY FOR ESTIMATED NUTRITIONAL NEEDS. 1. CONTINUE MECHANICAL SOFT DIET TOLERATED 2. CONTINUE HEALTHSHAKES BID PER RD PROTOCOL 3. MONITOR PO INTAKE 4. RD TO FOLLOW-UP IN 3-5 DAYS PATIENT IS MODERATE RISK. RENETTA SPENCER, TATE
--- NOTE | 2021-09-13 01:00 | NUR ---
PATIENT ASLEEP,RESPIRATIONS EVEN AND UNLABORED,NO DISTRESS NOTED
--- NOTE | 2021-09-13 03:00 | NUR ---
CLEANED AND REPOSITIONED THE PATIENT ,NO DISTRESS NOTED. ALL SAFETY MEASURES IN PLACE,SOFT HAND RESTRAINT IN PLACE
[2021-09-13] MEDS: DEXT 5% / NACL 0.45% 1,000 ML IV SCH ×2 (05:04→12:48)
[2021-09-13] MEDS: GAUZE TP SCH ×2 (05:05→13:20)
--- NOTE | 2021-09-13 07:15 | NUR ---
GOT AN ORDER FOR SOFT WRIST RESTRAITS FOR THE PATIENT
--- NOTE | 2021-09-13 07:15 | NUR ---
RECEIVED REPORT FROM NIGHTSHIFT NURSE RENETTA FOR CONTINUITY OF CARE. PT IN STABLE CONDITION, A/OX1 AND CURRENTLY AWAKE. PT SLURRING WORDS, IS AND CONFUSED. PT IS BREATHING EVEN, REGULAR AND SOMEWHAT LABORED ON ROOM AIR. PT IS INCONTINENT OF THE BOWEL AND BLADDER. PER NIGHTSHIFT NURSEMD RENEWED SOFT WRIST RESTRAINTS ORDER, PT SKIN IS INTACT UNDER RESTRAINTS. PT ATTEMPTED TO KICK LEGS OUT OF BED TO GET UP.
[2021-09-13 08:00] VITALS: BP 157/99
--- NOTE | 2021-09-13 08:00 | NUR ---
PT VISUALLY ASSESSED. SKIN UNDER RESTRAINTS INTACT, PT ATTEMPTED TO MOVE DOWN TO FOOT OF BED AND TO THE SIDE. PT REPOSITION, RESTRAINTS READJUSTED. PT CONFUSED AND AGITATED.
--- NOTE | 2021-09-13 10:00 | NUR ---
PT VISUALLY ASSESSED. SKIN UNDER RESTRAINTS INTACT, PT ATTEMPTED TO MOVE DOWN TO FOOT OF BED AND TO THE SIDE. PT REPOSITION, RESTRAINTS READJUSTED. PT CONFUSED AND AGITATED. BED BATH GIVEN.
[2021-09-13] MEDS: levETIRAcetam 100 MG/ML ORASYR PO SCH ×2 (10:02→21:11)
[2021-09-13] MEDS: chlordiazePOXIDE 25 MG CAP PO SCH ×2 (10:03→21:11)
[2021-09-13] MEDS: PANTOPRAZOLE 40 MG TABEC PO SCH (10:03)
[2021-09-13] MEDS: QUEtiapine FUMARATE 25 MG TAB PO SCH ×2 (10:03→21:11)
[2021-09-13] MEDS: THIAMINE 100 MG TAB PO SCH (10:03)
[2021-09-13] MEDS: CYANOCOBALAMIN 100 MCG TAB PO SCH (10:06)
[2021-09-13] MEDS: ENOXAPARIN 30 MG/0.3 ML SYR SUBQ SCH (10:18)
--- NOTE | 2021-09-13 12:00 | NUR ---
PT VISUALLY ASSESSED. SKIN UNDER RESTRAINTS INTACT, PT ATTEMPTED TO GET OUT OF BED, KICKING LEGS TO THE SIDE. PT REPOSITIONED, RESTRAINTS READJUSTED. 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
[2021-09-13] MEDS: DIAZEPAM PFS 10 MG/2 ML SYR IVP PRN (12:47)
--- NOTE | 2021-09-13 14:15 | NUR ---
FOUND PT WITH ONE RESTRAINT OFF ATTEMPTING TO REMOVE OTHER. PT RIPPED OUT IV, BLEEDING ON ARM WAS STOPPED AND DRESSED. PT REORIENTED, AND WAS STILL VERY CONFUSED ASKING FOR A "KNIFE TO CUT THE SHEETS". CIRCULATION AND SKIN IN BOTH UPPER EXTREMITIES INTACT. NEW IV INSERTED.
[2021-09-13 16:00] VITALS: BP 140/80
--- NOTE | 2021-09-13 19:30 | NUR ---
ENDORSED PT TO NIGHTSHIFT NURSE SUSHILA. PT IN STABLE CONDITION.
--- NOTE | 2021-09-13 19:31 | NUR ---
PATIENT RECEIVED REPORT FROM ALEJANDRO CRANE, PATIENT IS NOT ALERT BUT EASY TO AROUSE. NURSING NOTED PATIENT COUGHING WITH WET COUGH. SUCTIONED AND WAS WHITE MUCUS. PATIENT WAS ADJUSTED IN THE BED AND SOFT WRIST RESTRAINS WERE ADJUSTED BECAUSE OF SAFETY. HEAD OF BED ELEVATED TO KEEP PATIENT FROM ASPIRATING. PATIENT DID NOT EAT MUCH OF HIS FOOD, NURSING ATTEMPTED TO FEED MORE BUT HER MOVED HIS HEAD AWAY WHILE KEEPING HIS EYES CLOSED. ABLE TO BREATH WITHOUT RESPIRATORY DISTRESS. NO NOTED SIGNS/SYMPTOMS OF PAIN AT THIS TIME. KEPT CLEAN AND DRY SIDE RAILS UP X 4 FOR SEIZURE PRECAUTION AND FALL RISK. CALL LIGHT IN REACH AUDIO STIMULATION. BED AT THE LOWEST LEVEL. NURSING WILL FREQUEDNT THE ROOM FOR ASSISTANCE AND NEEDS. [email or web address]
[2021-09-13 20:00] VITALS: BP 120/71
--- NOTE | 2021-09-14 00:01 | NUR ---
ENDORSE PATIENT TO LAURIE RN, PATIENT WAS STABLE DURING THE PATIENT CHANGE. [email or web address]
--- NOTE | 2021-09-14 00:01 | NUR ---
TOOK PATIENT OVER FROM [facility] AT 0000 PATIENT AWAKE X2 WITH BI-LATERAL WRIST RESTRAINTS ON PATIENT QUIET AT THIS HOUR. SINUS ON MONITOR . HAS IV 20 GA IN RIGHT ARM D51/2NS IN- FUSING AT 75 HOUR. NO SEIZURES NOTED WRIST RESTRAINTS TO BE RENEWED AT 0700 A/M.
[2021-09-14] MEDS: GAUZE TP SCH ×2 (01:00→13:22)
[2021-09-14 04:00] VITALS: BP 118/74
[2021-09-14 05:24] LABS: BASOPHILS % (AUTO) 0.2 % (0.0-2.0); EOSINOPHILS % (AUTO) 0.1 % (0.0-4.0); HEMATOCRIT 35.1 % (36-52); HEMOGLOBIN 11.7 g/dL (12.0-18.0); LYMPHOCYTES % (AUTO) 5.6 % (20.5-51.1); MEAN CORPUSCULAR HEMOGLOBIN 31 pg (27-31); MEAN CORPUSCULAR HGB CONC 33 g/dL (33-37); MEAN CORPUSCULAR VOLUME 92.1 fL (80-94); MONOCYTES # (AUTO) 0.9 K/uL (0.8-1.0); NEUTROPHILS # (AUTO) 16.5 K/uL (1.8-7.7); NEUTROPHILS % (AUTO) 89.1 % (42.2-75.2); PLATELET COUNT (AUTO) 544 K/uL (140-450); RED BLOOD CELL COUNT(AUTO) 3.81 MIL/uL (4.20-6.10); RED CELL DISTRIBUTION WIDTH 16.8 % (11.6-13.7); WHITE BLOOD COUNT (AUTO) 18.5 K/uL (4.8-10.8)
[2021-09-14 06:20] LABS: ALBUMIN 2.8 g/dL (3.4-5.0); ANION GAP 12.6 (8-16); CARBON DIOXIDE 24.9 mmol/L (21-32); CREATININE 0.7 mg/dL (0.6-1.3); MAGNESIUM 1.4 mg/dL (1.8-2.4); POTASSIUM 3.5 mmol/L (3.5-5.1); TOTAL BILIRUBIN 0.5 mg/dL (0.0-1.0)
--- NOTE | 2021-09-14 07:30 | NUR ---
RECEIVED REPORT FROM PATIENT CARE TECHNICIAN NURSE FOR CONTINUITY OF CARE. PATIENT ASLEEP NO DISTRESS NOTED. PATIENT RESPIRATION EVEN AND NOT LABORED NO SHORTNESS OF BREATH ON ROOM AIR. IV SITE ON RIGHT FORE ARM BRYAN 20 D5 1/2 NS AT 75 CC/HOUR. ALL SAFETY MEASURE IN PLACE.PATIENT ON WRIST RESTRAINT SKIN INTACT.
[2021-09-14] MEDS: DEXT 5% / NACL 0.45% 1,000 ML IV SCH ×2 (08:00→20:12)
--- NOTE | 2021-09-14 08:00 | NUR ---
PT IN BED AWAKE INTRODUCED MYSELF AND PLAN OF CARE, COVERING ORDER CHECKER PACKER PROCESSER RYAN FOR IV MED [email or web address]
[2021-09-14] MEDS: CYANOCOBALAMIN 100 MCG TAB PO SCH (08:34)
[2021-09-14] MEDS: levETIRAcetam 100 MG/ML ORASYR PO SCH ×2 (08:34→20:12)
[2021-09-14] MEDS: PANTOPRAZOLE 40 MG TABEC PO SCH (08:35)
[2021-09-14] MEDS: chlordiazePOXIDE 25 MG CAP PO SCH ×2 (08:35→20:12)
[2021-09-14] MEDS: THIAMINE 100 MG TAB PO SCH (08:35)
[2021-09-14] MEDS: QUEtiapine FUMARATE 25 MG TAB PO SCH ×2 (08:36→20:12)
[2021-09-14] MEDS: ENOXAPARIN 30 MG/0.3 ML SYR SUBQ SCH (08:37)
--- NOTE | 2021-09-14 08:49 | NUR ---
PATIENT SIT UP AND GIVEN ALL DUE MEDICATION NOTED COUGHING WHEN HE TAKE THE MEDICATION.
[2021-09-14] MEDS: MAG SULF 2000 MG/WATER PREMIX 50 ML IV PRN (09:51)
--- NOTE | 2021-09-14 10:03 | NUR ---
INFORM DR. DONAHUE REGARDING PATIENT COUGHING WHEN HE'S EATING OR GIVEN MEDICATION. AND NOTED WITH COUGH AND CONGESTION SUCTION OBTAINED YELLOWISH SECRETION AND HE ORDER TO GIVE ROBITUSSIN PRN AND TRY TO REMOVE WRIST RESTRAIN. RESTRAIN REMOVED PATIENT ASLEEP NO DISTRESS AT THIS TIME. [facility] IS RUNNING TO COVER MAGNESSIUM LEVEL OF 1.4.
[2021-09-14] MEDS ORDERED: guaiFENesin 20 MG/ML UDC PO PRN (10:10)
--- NOTE | 2021-09-14 11:50 | NUR ---
PATIENT HAS BEEN JUST SLEEPING NO RESTLESSNESS OR TRYING TO REMOVED IV LINE DISCONTINUED WRIST RESTRAIN PER DR. DONAHUE ORDER. WILL CONTINUE TO MONITOR PATIENT CLOSELY.
[2021-09-14 12:00] VITALS: BP 114/65
--- NOTE | 2021-09-14 12:14 | NUR ---
NOTED O2 SAT IS LOW AT 77 PATIENT ASLEEP NOT ON ANY DISCOMFORT OR DIFFICULTY BREATHING GIVEN O2 VIA NASAL CANULA AND.INFORM DR. DONAHUE ORDER. DR. DONAHUE ORDER FOR CHEST X RAY AND RT SERVICES.
--- NOTE | 2021-09-14 12:26 | NUR ---
RT"S CALLED TO BEDSIDE TO EVALUATE PATIENT FOR DECREASED SATURATION INCREASED WOB AND INTERMITTENT COUGH
--- NOTE | 2021-09-14 12:30 | NUR ---
PATIENT PRESENTING WITH DESCENDING SATURATION AT 78% ON SUPPLEMENTAL OXYGEN AT 3 LPM VIA NC; ASCENDING WOB AT +50 BPM BREATH SOUNDS COARSE RHONCHI BILATERAL PLACED ON A NON REBREATHER AT 15 LPM AT THIS TME REVIEWED FINDINGS WITH RYAN/RN INSURANCE INSTRUCTOR SUGGESTION STAT CXR; DEEP NASOTRACHEAL SUCTION OBTAIN SPUTUM CULTURE FOR C&S; KEEP SATURATION GREATER THAN 92%; PULMONARY CONSULT FOR FURTHER ORDERS
--- NOTE | 2021-09-14 12:33 | NUR ---
RT CAME AND EVALUATED PATIENT. NOTED WITH OCCASIONAL COUGH WITH CHEST CONGESTION AND COARSE LUNG SOUND.
--- NOTE | 2021-09-14 13:00 | NUR ---
RT PUT PATIENT ON NON REBREATHER AT 15 L OF O2 SATURATION AT 100% AT THIS TIME. SPUTUM COLLECTED BY RT FOR CULTURE.
--- NOTE | 2021-09-14 14:00 | NUR ---
DC PLANNING SW ATTEMPTED TO MEET WITH PATIENT AT BEDSIDE TO DISCUSS AND GATHER PATIENT'S COLLATERAL INFORMATION. PATIENT WAS SLEEPING AND UNABLE TO WAKE UP. SW WILL FOLLOW UP AND WILL CONTINUE TO GET INFORMATION ON PATIENT NEEDED.
--- NOTE | 2021-09-14 14:21 | NUR ---
RT SEE PATIENT AGAIN AND PUT PATIENT ON 4L/MIN VIA NASAL CANULA SATURATION AT 99% AND RECOMMENDING FOR PULMO CONSULT DR. DONAHUE MADE AWARE AND ALSO INFORM HIM OF CHEST X RAY.
--- NOTE | 2021-09-14 18:31 | NUR ---
DOCTOR IMSHRA SEEN AND EVALUATED PATIENT. PATIENT STILL ASLEEP NOT VERBALLY RESPONSIVE NO ON 4 L/MIN VIA NASAL CANULA. SATURATION AT 93 TO 95%
--- NOTE | 2021-09-14 19:18 | NUR ---
PATIENT ASLEEP ONLY RESPONDS TO PAIN STIMULI. GAVE REPORT TO LANDFILL GRADER NURSE FOR CONTINUITY OF CARE.
--- NOTE | 2021-09-14 19:20 | NUR ---
RECEIVED PATIENT IN BED ASLEEP, AROUSABLE BY PAINFUL STIMULI. NO S/SX OF PAIN NOR DISCOMFORT. O2 SAT- 6L NASAL CANNULA SAT 93%. ORAL SUCTIONING DONE, NOTED THICK WHITISH SECRETION. SKIN WARM AND DRY TO TOUCH. NO ACUTE RESPIRATORY DISTRESS NOTED. BED IN THE LOWEST AND LOCKED POSITION FOR SAFETY.
[2021-09-14 20:00] VITALS: BP 109/60
[2021-09-14] MEDS: PIPERACILLIN/TAZOBACTAM 3.375 GM in DEXTROSE 5% 50 ML IV SCH (20:12)
--- NOTE | 2021-09-14 20:19 | NUR ---
PATIENT MORE AWAKE. ABLE TO TAKE MEDICATIONS ORDERED.
[2021-09-14] MEDS: ACETAMINOPHEN 325 MG TAB PO PRN (20:44)
--- NOTE | 2021-09-14 21:00 | NUR ---
O2 SAT 87% INCREASED O2 TO 8L RT MADE AWARE. NO ACUTE RESPIRATORY DISTRESS NOTED AT THIS TIME.
--- NOTE | 2021-09-14 22:00 | NUR ---
PATIENT'S O2 SAT STILL 87-88%, ORAL SUCTIONING DONE. RT MADE AWARE.
--- NOTE | 2021-09-14 22:27 | NUR ---
ABG PERFORMED @ 19:18 ON 4LNC (36%) W/ RESULTS FOLLOWS ... PH ...... 7.451 CO2 .... 33.5 HCO3 .. 70.6 BE ...... -0.6 PO2 .... 70.6 CALLED TO BEDSIDE PREV AND WAS TITRATED TO 13LNC PT TOLERATED SOMEWHAT WELL AND CALLED TO BEDSIDE ONCE MORE DUE TO PT DESAT 88% PT THEN PLACED ON HFNC 40L 40% PT IS TOLERATING WELL AT THIS TIME BUT APPEARS LETHARGIC WILL CONTINUE TO MONITOR
--- NOTE | 2021-09-14 22:35 | NUR ---
RT PLACED PATIENT ON HIFLOW 40L FIO2 40% SAT 92-93%. PATIENT'S O2 SAT BEEN GOING DOWN TO THE 80'S. ORAL SUCTIONING DONE, ORAL CARE RENDERED Addendum: 09/14/21 at 2332 by Lizbet Durán RN [id number]%
[2021-09-14 22:36] VITALS: BP 89/53
--- NOTE | 2021-09-14 22:40 | NUR ---
CALL PLACED TO DR. MISHRA TOW TRUCK OPERATOR FOR DR. FERNANDEZ AND INFORMED OF PATIENT BEING PLACED ON HIFLOW. AWAITING CALL BACK.
--- NOTE | 2021-09-14 23:03 | NUR ---
CALL PLACED TO DR. MISHRA, LEFT MESSAGE WITH THE EXCHNAGE. AWAITING CALL BACK.
--- NOTE | 2021-09-15 00:08 | NUR ---
PATIENT ASLEEP. NO S/SX OF PAIN NOR DISCOMFORT. CALL LIGHT IN REACH.
--- NOTE | 2021-09-15 00:23 | NUR ---
SPOKE WITH DR. MISHRA, INFORMED MD THAT PATIENT'S O2 SAT WAS GOING DOWN TO THE 80'S, TITRATED O2 UP TO 15L BY RT AND EVENTUALLY PLACED ON HI-FLOW 40L fIO2-45% SAT BETWEEN 92-93%. OK PER MD AND GAVE NEW ORDER FOR BREATHING TREATMENT, INFORMED RT.
[2021-09-15] MEDS: GAUZE TP SCH ×2 (01:04→12:04)
[2021-09-15] MEDS: ALBUTEROL SULFATE/IPRATROPIU 3 ML SOL IH SCH ×5 (03:00→23:00)
--- NOTE | 2021-09-15 03:47 | NUR ---
PATIENT IS ASLEEP. NO RESPIRATORY DISTRESS NOTED, SATURATING 99% ON HI FLOW 40L AND FI02-45%. RT AT THE BEDSIDE TITRATED DOWN TO 35L FIO2-36%.
--- NOTE | 2021-09-15 03:56 | NUR ---
HF TITRATED TO 35L 36% PT TOLERATING WELL W/ SPO2 98% 5 MIN POST TITRATION
[2021-09-15 04:00] VITALS: BP 133/72
[2021-09-15] MEDS: DEXT 5% / NACL 0.45% 1,000 ML IV SCH ×2 (04:30→17:14)
--- NOTE | 2021-09-15 04:30 | NUR ---
AM CARE DONE, MADE COMFORTABLE IN BED. SAT 98% ON HI FLOW 35L FIO2-36%. CALL LIGHT IN REACH.
[2021-09-15] MEDS: PIPERACILLIN/TAZOBACTAM 3.375 GM in DEXTROSE 5% 50 ML IV SCH ×3 (04:36→20:32)
--- NOTE | 2021-09-15 06:07 | NUR ---
PATIENT ASLEEP. ALL NEEDS ATTENDED TO. NO ACUTE RESPIRATORY DISTRESS NOTED. SAFETY PRECAUTIONS IN PLACE DURING THE SHIFT, CALL LIGHT REMAINED WITHIN REACH.
--- NOTE | 2021-09-15 07:19 | NUR ---
BEDSIDE REPORT GIVEN TO AM RN. PATIENT IS ASLEEP. NO ACUTE RESPIRATORY DISTRESS NOTED. CALL LIGHT WITHIN REACH.
--- NOTE | 2021-09-15 07:30 | NUR ---
RECEIVED REPORT FROM FELL CUTTER NURSE FOR CONTINUITY OF CARE. PT IS AOX1, UNABLE TO VERBALIZE NEEDS. RESPIRATIONS EVEN AND UNLABORED. ON HI FLOW 35L FIO2 36%. SKIN IS WARM, DRY, AND INTACT. HAS SEVERAL CLOSED SCABS ON LEFT LEG AND HEAD. NO DRAINING NOTED. IV SITE ON R WRIST 20G INFUSING FLUIDS ORDERED. FLACC 0. PLAN OF CARE DISCUSSED. SAFETY PRECAUTIONS IN PLACE. CALL LIGHT WITHIN REACH. WILL CONTINUE TO MONITOR.
[2021-09-15 07:56] VITALS: BP 128/75
[2021-09-15 08:00] VITALS: BP 128/75
[2021-09-15] MEDS: levETIRAcetam 100 MG/ML ORASYR PO SCH (09:10)
[2021-09-15] MEDS: chlordiazePOXIDE 25 MG CAP PO SCH ×2 (09:10→21:00)
[2021-09-15] MEDS: CYANOCOBALAMIN 100 MCG TAB PO SCH (09:10)
[2021-09-15] MEDS: ENOXAPARIN 30 MG/0.3 ML SYR SUBQ SCH (09:11)
[2021-09-15] MEDS: PANTOPRAZOLE 40 MG TABEC PO SCH (09:11)
[2021-09-15] MEDS: QUEtiapine FUMARATE 25 MG TAB PO SCH ×2 (09:11→21:00)
[2021-09-15] MEDS: THIAMINE 100 MG TAB PO SCH (09:11)
--- NOTE | 2021-09-15 09:15 | NUR ---
ALL SCHEDULED MEDS GIVEN. PT IS STABLE. NO DISTRESS NOTED. WILL CONTINUE TO MONITOR.
[2021-09-15 10:04] LABS: BASOPHILS % (AUTO) 0.3 % (0.0-2.0); EOSINOPHILS # (AUTO) 0.2 K/uL (0-0.4); EOSINOPHILS % (AUTO) 1.8 % (0.0-4.0); HEMATOCRIT 35.4 % (36-52); HEMOGLOBIN 11.8 g/dL (12.0-18.0); LYMPHOCYTES # (AUTO) 0.6 K/uL (2.0-11.5); LYMPHOCYTES % (AUTO) 4.9 % (20.5-51.1); MEAN CORPUSCULAR HEMOGLOBIN 31 pg (27-31); MEAN CORPUSCULAR HGB CONC 33 g/dL (33-37); MEAN CORPUSCULAR VOLUME 92.3 fL (80-94); MONOCYTES # (AUTO) 0.7 K/uL (0.8-1.0); MONOCYTES % (AUTO) 6.5 % (1.7-9.3); NEUTROPHILS % (AUTO) 86.5 % (42.2-75.2); PLATELET COUNT (AUTO) 660 K/uL (140-450); RED BLOOD CELL COUNT(AUTO) 3.84 MIL/uL (4.20-6.10); RED CELL DISTRIBUTION WIDTH 16.3 % (11.6-13.7); WHITE BLOOD COUNT (AUTO) 11.6 K/uL (4.8-10.8)
[2021-09-15 10:12] LABS: ALBUMIN 2.6 g/dL (3.4-5.0); ANION GAP 11.5 (8-16); CARBON DIOXIDE 26.9 mmol/L (21-32); CREATININE 0.8 mg/dL (0.6-1.3); POTASSIUM 3.4 mmol/L (3.5-5.1); TOTAL BILIRUBIN 0.7 mg/dL (0.0-1.0)
--- NOTE | 2021-09-15 11:05 | NUR ---
PT ON HFNC CURRENT SETTINGS, SPO2 94%. ALBUTEROL TX GIVEN. PT HAS SMALL TO MODERATE ORAL SECRETIONS. NTS ATTEMPTED BUT PATIENT WAS NOT COOPERATIVE, UNABLE TO PASS CATHETER THROUGH RIGHT OR LEFT VANEGAS. DEEP SUCTION ORALLY, SPO2 97%
[2021-09-15 12:00] VITALS: BP 124/74
--- NOTE | 2021-09-15 12:00 | NUR ---
REQUESTED RESTRAINTS FROM MD DUE TO PULLING OXYGEN AND TUBE LINES. MD IS MADE AWARE AND RECEIVED NEW ORDERS FOR RESTRAINTS. PLACED PATIENT ON BILATERAL WRIST RESTRAINTS. SKIN IS INTACT PRIOR TO PLACEMENT
--- NOTE | 2021-09-15 13:05 | NUR ---
WOUND CARE RE-EVALUATION NOTE: SKIN ASSESSMENT DONE NO NEW SKIN BREAKS , ABRASIONS TO EYEBROWS AND KNEES DRY AND NO S/S OF INFECTION. WOUND CARE NURSE WILL SIGN OFF CARE AT THIS TIME. POC DISCUSSED WITH PRIMARY NURSE TO CONTINUE PRESSURE INJURIES PREVENTIONS INTERVENTIONS.
--- NOTE | 2021-09-15 14:00 | NUR ---
RT AT BEDSIDE.
[2021-09-15] MEDS: KCL 20 MEQ/WATER INJ PREMIX 200 ML IV PRN (15:42)
[2021-09-15 16:00] VITALS: BP 126/72
--- NOTE | 2021-09-15 18:00 | NUR ---
PATIENT WAS SEEN BY ST. FAILED SWALLOW EVAL TEST. RECOMMENDATION WAS TO KEEP PATIENT NPO UNTIL PT IS MORE ALERT.
--- NOTE | 2021-09-15 18:04 | NUR ---
PT WAS SEEN FOR DYSPHAGIA. PT WAS POCKETING FOR TRIALS OF APPLE SAUCE. PT HAD DIFFICULTY WITH INITIATING SWALLOW. RECOMMENDATION NOTHING BY MOUTH
--- NOTE | 2021-09-15 19:10 | NUR ---
RECEIVED BEDSIDE REPORT FROM DAY SHIFT NURSE. PATIENT IS AWAKE. RESPIRATION EVEN UNLABORED ON HFNC SATTING AT 96%. NO DISTRESS NOTED. SKIN IS WARM AND DRY. IV PATENT AND INTACT. RESTRAIN NOTED ON BILATERAL WRIST. PLAN OF CARE UPDATED. ALL SAFETY MEASURES IN PLACE. BED IS AT LOW POSITION. CALL LIGHT WITHIN REACH WILL CONTINUE TO MONITOR.
--- NOTE | 2021-09-15 19:26 | NUR ---
ENDORSED TO SEAT BUILDER NURSE FOR CONTINUITY OF CARE. PT IS STABLE.
[2021-09-15 20:00] VITALS: BP 140/82
[2021-09-15] MEDS ORDERED: levETIRAcetam 100 MG/ML VIAL IV ONE (20:26)
--- NOTE | 2021-09-15 20:30 | NUR ---
ALL SCHEDULED MEDS GIVEN PER ORDER. WILL CONTINUE TO MONITOR
[2021-09-15] MEDS: levETIRAcetam 500 MG in NACL 0.9% 100 ML IV SCH (21:43)
--- NOTE | 2021-09-15 22:45 | NUR ---
MADE ROUNDS, PATIENT SLEEPING NO DISTRESS NOTED. WILL CONTINUE TO MONITOR
--- NOTE | 2021-09-15 23:12 | NUR ---
PT FOUND ON RA W/ HFNC ON CHEST SPO2 MID 80s PT PLACED ON 5LNC W/ SPO2 97% HR 90 f22 5 MIN AFTER PLACING ON 5LNC WILL CONTINUE TO MONITOR AND TITRATE (WILL REPLACE HFNC ON PT IF NEEDED)
[2021-09-16] VITALS: BP 131/72
--- NOTE | 2021-09-16 00:26 | NUR ---
VITALS WERE TAKEN. RT AT BEDSIDE
[2021-09-16] MEDS: GAUZE TP SCH ×2 (02:14→12:51)
--- NOTE | 2021-09-16 02:22 | NUR ---
MADE ROUNDS, PATIENT IS STABLE NO DISTRESS NOTED.
[2021-09-16] MEDS: ALBUTEROL SULFATE/IPRATROPIU 3 ML SOL IH SCH ×6 (03:00→22:31)
[2021-09-16 04:00] VITALS: BP 126/72
--- NOTE | 2021-09-16 04:00 | NUR ---
VITALS WERE TAKEN. NO DISTRESS NOTED
[2021-09-16] MEDS: PIPERACILLIN/TAZOBACTAM 3.375 GM in DEXTROSE 5% 50 ML IV SCH ×3 (04:42→21:02)
--- NOTE | 2021-09-16 05:03 | NUR ---
AM CARE PROVIDED
[2021-09-16 05:49] LABS: BASOPHILS # (AUTO) 0.1 K/uL (0.00-0.22); BASOPHILS % (AUTO) 0.6 % (0.0-2.0); EOSINOPHILS # (AUTO) 0.2 K/uL (0-0.4); EOSINOPHILS % (AUTO) 2.6 % (0.0-4.0); HEMATOCRIT 31.3 % (36-52); HEMOGLOBIN 10.6 g/dL (12.0-18.0); LYMPHOCYTES # (AUTO) 1.2 K/uL (2.0-11.5); LYMPHOCYTES % (AUTO) 14.6 % (20.5-51.1); MEAN CORPUSCULAR HEMOGLOBIN 31 pg (27-31); MEAN CORPUSCULAR HGB CONC 34 g/dL (33-37); MONOCYTES % (AUTO) 11.3 % (1.7-9.3); NEUTROPHILS % (AUTO) 70.9 % (42.2-75.2); PLATELET COUNT (AUTO) 708 K/uL (140-450); RED CELL DISTRIBUTION WIDTH 16.3 % (11.6-13.7); WHITE BLOOD COUNT (AUTO) 8.5 K/uL (4.8-10.8)
[2021-09-16 07:04] LABS: ALBUMIN 2.5 g/dL (3.4-5.0); ANION GAP 14.7 (8-16); CARBON DIOXIDE 23.8 mmol/L (21-32); CREATININE 0.7 mg/dL (0.6-1.3); POTASSIUM 3.5 mmol/L (3.5-5.1); TOTAL BILIRUBIN 0.5 mg/dL (0.0-1.0)
--- NOTE | 2021-09-16 07:30 | NUR ---
RECEIVED REPORT FROM MARBLEIZER NURSE FOR CONTINUITY OF CARE. PT IS AOX1, UNABLE TO VERBALIZE NEEDS. RESPIRATIONS EVEN AND UNLABORED. ON 5L NC SATURATING 95% O2. SKIN IS WARM, DRY, AND INTACT. IV SITE ON R WRIST 20G INFUSING FLUIDS ORDERED. FLACC 0. PLAN OF CARE DISCUSSED. SAFETY PRECAUTIONS IN PLACE. CALL LIGHT WITHIN REACH. WILL CONTINUE TO MONITOR.
[2021-09-16 08:00] VITALS: BP 158/88
[2021-09-16] MEDS: chlordiazePOXIDE 25 MG CAP PO SCH ×2 (08:13→21:00)
[2021-09-16] MEDS: DEXT 5% / NACL 0.45% 1,000 ML IV SCH ×2 (08:13→20:30)
[2021-09-16] MEDS: QUEtiapine FUMARATE 25 MG TAB PO SCH ×2 (08:13→21:00)
[2021-09-16] MEDS: PANTOPRAZOLE 40 MG TABEC PO SCH (08:13)
[2021-09-16] MEDS: THIAMINE 100 MG TAB PO SCH (08:14)
[2021-09-16] MEDS: CYANOCOBALAMIN 100 MCG TAB PO SCH (08:14)
[2021-09-16] MEDS: levETIRAcetam 500 MG in NACL 0.9% 100 ML IV SCH ×2 (08:47→21:02)
[2021-09-16] MEDS: ENOXAPARIN 30 MG/0.3 ML SYR SUBQ SCH (08:53)
--- NOTE | 2021-09-16 09:03 | NUR ---
IV DISLODGED. REINSERTED NEW 20G IV ON RAC. SALINE FLUSHED. INTACT AND PATENT.
--- NOTE | 2021-09-16 10:45 | NUR ---
PT SATURATION WAS 98% ON 5L NASAL CANNULA. TITRATED TO ROOM AIR AND PT SATURATION IS 93%-97%. NO DISTRESS NOTED, EQUAL CHEST RISE AND PT IS RESTING COMFORTABLY.
[2021-09-16 12:00] VITALS: BP 124/80
--- NOTE | 2021-09-16 12:15 | NUR ---
CHECKED ON PATIENT. PT IS STABLE. NO DISTRESS NOTED. WILL CONTINUE TO MONITOR.
--- NOTE | 2021-09-16 14:18 | NUR ---
09/16/21 RD FOLLOW UP COMPLETED PLEASE REFER TO NUTRITION ASSESSMENT UNDER CARE ACTIVITY FOR ESTIMATED NUTRITIONAL NEEDS. 1. MONITOR NPO STATUS 2. WHEN/IF MEDICALLY APPROPRIATE, RECOMMEND REGULAR DIET WITH TEXTURE MODIFICATION PER SLT RECOMMENDATIONS 3. CONSULT RD PRN 4. RD TO FOLLOW-UP 2-3 DAYS, HIGH RISK REVIEWED BY ENEDINA BELLAMY RD
--- NOTE | 2021-09-16 15:40 | NUR ---
RT AT BEDSIDE.
--- NOTE | 2021-09-16 15:45 | NUR ---
NTS ON PT DUE TO RHONCHI/ COURSE BREATH SOUNDS. PT IS HAVING A HAD TIME COUGHING OUT THE THICK SPUTUM. DARK GREEN THICK SPUTUM WAS SUCTIONED OUT. PT SATURATION WAS 97% ON ROOM AIR AND RESTING COMFORTABLY AFTER. NO DISTRESS NOTED.
[2021-09-16 16:00] VITALS: BP 126/72
--- NOTE | 2021-09-16 16:03 | NUR ---
DC PLANNING: THE PATIENT IS NOW ON RA BUT REMAINS ON RESTRAINTS AND IS CONFUSED. ROSSI SPOKE WITH [facility]UD[facility] GREEN ([phone]) TO DISCUSS DC PLANNING PATIENT IS HOMELESS WITH NO LISTED CONTACTS, UNABLE TO ANY INFORMATION ON FAMILY. THE PATIENT HAS NOT BEEN ABLE TO PARTICIPATE IN P.T. YET, ONCE PATIENT IS OFF OF RESTRAINTS AND ABLE TO PARTICIPATE IN THERAPIES CM WILL REFER HIM TO SNF'S. NORMA WILL REFER THE PATIENT TO HIS "DIFFICULT TO PLACE" TEAM ONCE ROSSI PROVIDES LIST OF SNF'S WHO DECLINE THE PATIENT. IF SNF PLACEMENT IS NOT POSSIBLE AUDRE[facility] WILL CONSIDER RECUPERATIVE CARE PLACEMENT. ROSSI WILL FOLLOW. Addendum: 09/17/21 at 1616 by Cheryl Wiley CM DC PLANNING: ORDER RECEIVED FOR [facility] EVALUATION, REFERRAL FAXED TO [facility]. RICHEY WILL FOLLOW. Addendum: 09/21/21 at 1118 by Cheryl Wiley CM DC PLANNING: UPDATED CLINICALS FAXED TO [facility]. ROSSI WILL FOLLOW. Addendum: 09/22/21 at 1155 by Cheryl Wiley CM DC PLANNING: THE PATIENT IS ON PUREE DIET, ATTEMPTED TO WEAN OFF SEROQUEL, PATIENT BECAME MORE AGITATED AND TRIED TO REMOVE HIS RESTRAINS. FOLIC ACID STARTED, WILL ATTEMPTED TO WEAN LIBRIUM PER MD NOTES. PATIENT REMAINS ON KEPPRA IV BID, ZYPREXA, RESTORIL AND LEVAQUIN. ROSSI IS WAITING TO HEAR FROM [facility] FOR DECISION ON ACCEPTANCE, ROSSI RECEIVED A CALL YESTERDAY FROM [facility] CONFIRMING PATIENTS HOMELESS STATUS AND LACK OF FAMILY. ROSSI WILL FOLLOW. Addendum: 09/24/21 at 0941 by Cheryl Wiley CM DC PLANNING: ROSSI SPOKE WITH SABRINA AT [facility]. PATIENT NO LONGER MEETS LT[facility] CRITERIA AND IS HOMELESS WITHOUT REPRESENTATION. [facility] WOULD NOT HAVE A SAFE DC PLAN IF HE TRANSFERRED TO THEM, PATIENT AT THIS TIME DECLINED. CM WILL FOLLOW. Addendum: 10/06/21 at 1635 by Cheryl Wiley CM DC PLANNING: ROSSI SPOKE WITH ROSSI GREEN FROM [facility] [phone]), ASKED FOR A CURRENT LIST OF CONTRACTED SNF'S. ROSSI WILL FAX TO [facility] AND WILL SEND LOG WITH RESPONSE FROM THEM IF NONE ACCEPT THE PATIENT. NORMA WILL THEN REFER THE PATIENT TO HIS DIFFICULT TO PLACE TEAM. ROSSI WILL FOLLOW. Addendum: 10/13/21 at 1136 by Lydia Hutson RN DC PLANNING: [facility] [phone] SPOKE WITH NORMA NOTIFIED THAT UNABLE TO FIND ANY SNF'S FOR PATIENT BECAUSE OF DISCHARGE AFTER SNF. PER NORMA TO FAX ALL THE CLINICALS AND THE REJECTION NOTES FROM ALL THE SNF. FAXED ALL PAPER WORK TO [phone]. MICKY GREEN WILL SUBMIT TO [facility]. CM TO FOLLOW Addendum: 10/15/21 at 1514 by Lydia Hutson RN DC PLANNING: CALLED [facility] CM SPOKE WITH NORMA STATED SUBMITTED THE REQUEST TO COMPLEX DISCHARGE PLACEMENT DEPARTMENT AND STILL AWAITING FOR RESPOND. FAXED TO [facility], [facility] AND [facility]. ROSSI TO FOLLOW
--- NOTE | 2021-09-16 19:00 | NUR ---
ST EVALUATED PATIENT AND PATIENT FAILED SWALLOW EVAL. RECOMMENDS NPO UNTIL PATIENT IS MORE ALERT.
--- NOTE | 2021-09-16 19:05 | NUR ---
PT WAS SEEN FOR DYSPHAGIA. PT WAS POCKETING FOR TRIALS OF APPLE SAUCE. PT HAD DIFFICULTY WITH INITIATING SWALLOW. RECOMMENDATION NOTHING BY MOUTH
--- NOTE | 2021-09-16 19:30 | NUR ---
ENDORSED TO SHIFT LEADER NURSE FOR CONTINUITY OF CARE. PT IS STABLE.
--- NOTE | 2021-09-16 19:31 | NUR ---
RECEIVED REPORT FROM DAY RN FOR CONTINUITY OF CARE. PT A&0 X 1. BREATHING EVEN, LABORED,ROOM AIR.O2 SAT AT 94%. PT IS ON 2-POINT SOFT WRIST RESTRAINTS, SKIN UNDER RESTRAINTS CLEAR AND INTACT. IV ON R FA G20, INFUSING WELL.HEAD OF BED ELEVATED 30 DEGREES. ALL PRECAUTIONS IN PLACE. CALL LIGHT WITHIN REACH. WILL CONTINUE TO MONITOR.
[2021-09-16 20:00] VITALS: BP 115/74
--- NOTE | 2021-09-16 21:00 | NUR ---
SCHEDULED IV MEDICATIONS GIVEN. PO MEDS HELD, PT IS NPO. STILL WAITING FOR SPEECH AND SWALLOW EVAL.
--- NOTE | 2021-09-16 22:13 | NUR ---
MADE ROUNDS, PATIENT SLEEPING NO DISTRESS NOTED. WILL CONTINUE TO MONITOR.
[2021-09-17] VITALS: BP 137/84
[2021-09-17] MEDS: GAUZE TP SCH ×2 (01:00→13:00)
--- NOTE | 2021-09-17 02:42 | NUR ---
PT ASLEEP. RESPIRATIONS EQUAL AND UNLABORED, NO SOB NOTED. ALL PRECAUTIONS IN PLACE. CALL LIGHT WITHIN REACH. WILL CONTINUE TO MONITOR.
[2021-09-17] MEDS: ALBUTEROL SULFATE/IPRATROPIU 3 ML SOL IH SCH ×5 (03:00→19:42)
[2021-09-17 04:00] VITALS: BP 146/89
[2021-09-17] MEDS: PIPERACILLIN/TAZOBACTAM 3.375 GM in DEXTROSE 5% 50 ML IV SCH ×3 (05:18→21:07)
--- NOTE | 2021-09-17 05:48 | NUR ---
SCHEDULED MEDICATION GIVEN. PT TOLERATED WELL. ALL PRECAUTIONS IN PLACE. WILL CONTINUE TO MONITOR.
[2021-09-17 06:14] LABS: BASOPHILS # (AUTO) 0.1 K/uL (0.00-0.22); BASOPHILS % (AUTO) 1.1 % (0.0-2.0); EOSINOPHILS # (AUTO) 0.3 K/uL (0-0.4); EOSINOPHILS % (AUTO) 5.2 % (0.0-4.0); HEMATOCRIT 31.9 % (36-52); LYMPHOCYTES # (AUTO) 1.1 K/uL (2.0-11.5); LYMPHOCYTES % (AUTO) 20.9 % (20.5-51.1); MEAN CORPUSCULAR HEMOGLOBIN 31 pg (27-31); MEAN CORPUSCULAR HGB CONC 34 g/dL (33-37); MEAN CORPUSCULAR VOLUME 91.4 fL (80-94); MONOCYTES # (AUTO) 0.7 K/uL (0.8-1.0); MONOCYTES % (AUTO) 14.4 % (1.7-9.3); NEUTROPHILS % (AUTO) 58.4 % (42.2-75.2); PLATELET COUNT (AUTO) 793 K/uL (140-450); RED BLOOD CELL COUNT(AUTO) 3.49 MIL/uL (4.20-6.10); RED CELL DISTRIBUTION WIDTH 16.1 % (11.6-13.7); WHITE BLOOD COUNT (AUTO) 5.1 K/uL (4.8-10.8)
[2021-09-17 06:25] LABS: ALBUMIN 2.6 g/dL (3.4-5.0); CARBON DIOXIDE 24.4 mmol/L (21-32); CREATININE 0.7 mg/dL (0.6-1.3); POTASSIUM 3.4 mmol/L (3.5-5.1); TOTAL BILIRUBIN 0.5 mg/dL (0.0-1.0)
[2021-09-17] MEDS: ACETYLCYSTEINE 10% (100 MG/ML) 100 MG/ML VIAL INH SCH ×3 (06:55→12:00)
--- NOTE | 2021-09-17 07:15 | NUR ---
PT IS CURRENTLY ON ROOM AIR. SATURATION IS 96-97%. COARSE BILATERAL BREATH SOUNDS. DUO Q4, MUCO Q6 AND CPT Q6. PT IS TOLERATING CPT WELL. HE WAS ABLE TO COUGH UP MORE SECRETIONS.
--- NOTE | 2021-09-17 07:15 | NUR ---
RECEIVED BEDSIDE REPORT FROM JONO MAYERS RN FOR CONTINUITY OF CARE. PT LYING IN THE BED, AAOX1. ON RM AIR. SR ON TELE MONITOR. BOWEL SOUNDS ACTIVE, INCONTINENT OF BLADDER. 22G TO RFA, INFUSING D5 1/2 NS AT 75 ML/HR. MILD WEAKNESS TO BUE BLE. RESTRAINTS TO BUE IN PLACE, NO S/S INJURY. RENEW AT 1200. STANDARD PRECAUTIONS IN PLACE. INITIAL ASSESSMENT COMPLETE, WILL CONTINUE TO MONITOR.
--- NOTE | 2021-09-17 07:35 | NUR ---
PT IS STABLE. ENDORSED TO AM SHIFT NURSE FOR CONTINUITY OF CARE.
[2021-09-17 08:00] VITALS: BP 136/91
[2021-09-17] MEDS: QUEtiapine FUMARATE 25 MG TAB PO SCH ×3 (09:00→21:00)
[2021-09-17] MEDS: PANTOPRAZOLE 40 MG TABEC PO SCH ×2 (09:00→09:59)
[2021-09-17] MEDS: THIAMINE 100 MG TAB PO SCH ×2 (09:00→09:58)
[2021-09-17] MEDS: chlordiazePOXIDE 25 MG CAP PO SCH ×3 (09:00→21:00)
[2021-09-17] MEDS: CYANOCOBALAMIN 100 MCG TAB PO SCH (09:00)
--- NOTE | 2021-09-17 09:15 | NUR ---
PT RESTING, EYES CLOSED, NO S/S ACUTE DISTRESS. WILL CONTINUE TO CLOSELY MONITOR.
[2021-09-17] MEDS: DEXT 5% / NACL 0.45% 1,000 ML IV SCH ×2 (09:50→23:10)
[2021-09-17] MEDS: ENOXAPARIN 30 MG/0.3 ML SYR SUBQ SCH (09:58)
[2021-09-17] MEDS: levETIRAcetam 500 MG in NACL 0.9% 100 ML IV SCH ×2 (10:00→21:07)
--- NOTE | 2021-09-17 11:15 | NUR ---
PT IN BED, RESTRAINTS IN PLACE, NO S/S INJURY. MILD RESTLESSNESS NOTED. REORIENTED PT. WILL CONTINUE TO CLOSELY MONITOR.
--- NOTE | 2021-09-17 11:45 | NUR ---
FOUND PT SITTING ON THE FLOOR, LEANING TO L SIDE, IV OUT, NO GOWN, RESTRAINTS OFF. SKIN INTACT, NO S/S INJURY. BP 124/81, RR 19, HR 94, TEMP 98.2, SPO2 94. CALLED AND DESCRIBED HOW I FOUND THE PT, HE ORDERED STAT CT HEAD. PT NOW LYING COMFORTABLY IN THE BED, RESTRAINTS ON, WILL CONTINUE TO CLOSELY MONITOR AT THE BEDSIDE.
[2021-09-17 12:00] VITALS: BP 124/81
--- NOTE | 2021-09-17 12:39 | NUR ---
PT TAKEN TO CT
--- NOTE | 2021-09-17 12:54 | NUR ---
BACK FROM CT. RESTRAINTS BACK ON.
--- NOTE | 2021-09-17 13:00 | NUR ---
INSERTED BRUNO 20G DUE TO PT REMOVING PREVIOUS IV. ADMINISTERED SCHEDULED ZOSYN ORDERED. NADR. WILL CONTINUE TO CLOSELY MONITOR
--- NOTE | 2021-09-17 15:00 | NUR ---
PT REMOVED BRUNO IV.
[2021-09-17 16:00] VITALS: BP 125/59
--- NOTE | 2021-09-17 16:45 | NUR ---
KEYLA PLANNING SW CALL [facility] AT SPOKE TO ASAEL FROM [employer] AND EXPLAINED THAT THE PURPOSE OF THE CALL IS REACH OUT TO [facility] IN THE HOPES OF GETTING FROM THEM ANY IDENTIFYING EMERGENCY CONTACTS OR FAMILY CONTACT THAT PATIENT HAS LISTED CURRENTLY OR IN THE PAST. PER ASAEL PATIENT HAS NOT LISTED ANY INFORMATION OF ANY FAMILY MEMBERS AND THE ONLY PHONE NUMBER AND ADDRESS LISTED IS AND [address] [facility]. STEVE THANKED HER FOR ALL THE INFORMATION PROVIDED AND ENDED THE CALL SW WILL FOLLOW UP NEEDED. STEVE ATTEMPTED TO CALL AT THE NUMBER PROVIDED BY [facility] . NUMBER WAS NOT ON SERVICE. STEVE WILL FOLLOW UP NEEDED.
--- NOTE | 2021-09-17 18:00 | NUR ---
PT FOUND SITTING ON SIDE OF BED WITH ONLY L RESTRAINT ON. PT REPOSITIONED. REAPPLIES R RESTRAINT, AND REORIENTED.
--- NOTE | 2021-09-17 19:11 | NUR ---
ENDORSED BEDSIDE REPORT TO GALINDO MAYERS RN FOR CONTINUITY OF CARE. PT LYING IN BED, RESTRAINTS IN PLACE. NO S/S ACUTE DISTRESS. ALL QUESTIONS ANSWERED.
--- NOTE | 2021-09-17 19:12 | NUR ---
RECEIVED REPORT FROM DAY RN FOR CONTINUITY OF CARE. PT CONFUSED, GARBLED SPEECH. BREATHING EVEN AND UNLABORED,ROOM AIR.O2 SAT AT 95%. PT IS ON 2-POINT SOFT WRIST RESTRAINTS, SKIN UNDER RESTRAINTS CLEAR AND INTACT. NO IV ACCESS.HEAD OF BED ELEVATED 30 DEGREES. ALL PRECAUTIONS IN PLACE. CALL LIGHT WITHIN REACH. WILL CONTINUE TO MONITOR.
--- NOTE | 2021-09-17 19:30 | NUR ---
NEW IV PLACED ON R UPPER ARM G22.PT TOLERATED WELL. WILL CONTINUE TO MONITOR.
[2021-09-17 20:00] VITALS: BP 134/82
--- NOTE | 2021-09-17 21:30 | NUR ---
SCHEDULED IV MEDICATIONS GIVEN. PO MEDS HELD, PT IS NPO. STILL WAITING FOR SPEECH AND SWALLOW EVAL.
[2021-09-18] VITALS: BP 147/89
[2021-09-18] MEDS: GAUZE TP SCH ×2 (01:08→13:00)
[2021-09-18] MEDS: KCL 20 MEQ/WATER INJ PREMIX 200 ML IV PRN (02:17)
--- NOTE | 2021-09-18 03:15 | NUR ---
POTASSIUM WAS 3.4. 40MEQ K RIDER GIVEN PER PROTOCOL. WILL CONTINUE TO MONITOR.
[2021-09-18 04:00] VITALS: BP 140/80
[2021-09-18] MEDS: ACETYLCYSTEINE 10% (100 MG/ML) 100 MG/ML VIAL INH SCH ×6 (04:22→22:53)
[2021-09-18] MEDS: ALBUTEROL SULFATE/IPRATROPIU 3 ML SOL IH SCH ×7 (04:22→22:53)
[2021-09-18] MEDS: PIPERACILLIN/TAZOBACTAM 3.375 GM in DEXTROSE 5% 50 ML IV SCH ×3 (05:06→20:52)
--- NOTE | 2021-09-18 05:45 | NUR ---
PT REPOSITIONED. SCHEDULED MEDICATION GIVEN.WILL CONTINUE TO MONITOR.
[2021-09-18 06:17] LABS: BASOPHILS # (AUTO) 0.1 K/uL (0.00-0.22); BASOPHILS % (AUTO) 2.1 % (0.0-2.0); EOSINOPHILS # (AUTO) 0.3 K/uL (0-0.4); EOSINOPHILS % (AUTO) 5.1 % (0.0-4.0); HEMATOCRIT 34.7 % (36-52); HEMOGLOBIN 12.1 g/dL (12.0-18.0); LYMPHOCYTES # (AUTO) 1.3 K/uL (2.0-11.5); LYMPHOCYTES % (AUTO) 24.4 % (20.5-51.1); MEAN CORPUSCULAR HEMOGLOBIN 31 pg (27-31); MEAN CORPUSCULAR HGB CONC 35 g/dL (33-37); MEAN CORPUSCULAR VOLUME 90.1 fL (80-94); MONOCYTES # (AUTO) 0.7 K/uL (0.8-1.0); MONOCYTES % (AUTO) 13.1 % (1.7-9.3); NEUTROPHILS % (AUTO) 55.3 % (42.2-75.2); PLATELET COUNT (AUTO) 879 K/uL (140-450); RED BLOOD CELL COUNT(AUTO) 3.85 MIL/uL (4.20-6.10); RED CELL DISTRIBUTION WIDTH 16.2 % (11.6-13.7); WHITE BLOOD COUNT (AUTO) 5.3 K/uL (4.8-10.8)
[2021-09-18 06:18] LABS: ALBUMIN 2.7 g/dL (3.4-5.0); ANION GAP 11.6 (8-16); CARBON DIOXIDE 26.1 mmol/L (21-32); CREATININE 0.7 mg/dL (0.6-1.3); POTASSIUM 3.7 mmol/L (3.5-5.1); TOTAL BILIRUBIN 0.5 mg/dL (0.0-1.0)
--- NOTE | 2021-09-18 06:24 | NUR ---
PT IS STABLE. NO ACUTE EVENTS THROUGHOUT THE NIGHT. NO DISTRESS NOTED. ALL PRECAUTIONS IN PLACE. CALL LIGHT WITHIN REACH. WILL ENDORSE TO AM SHIFT NURSE.
[2021-09-18 08:00] VITALS: BP 128/67
--- NOTE | 2021-09-18 08:01 | NUR ---
GOT REPORT FROM THE NIGHT NURSE PT TRYING TO CLIMB OUT OF BED REPOSITIONED SOFT RESTRAINT IS IN PLACE ON BOTH HANDS.[id number]
[2021-09-18] MEDS: CYANOCOBALAMIN 100 MCG TAB PO SCH (09:00)
[2021-09-18] MEDS: levETIRAcetam 500 MG in NACL 0.9% 100 ML IV SCH ×2 (09:27→20:05)
[2021-09-18] MEDS: QUEtiapine FUMARATE 25 MG TAB PO SCH ×2 (10:45→20:04)
[2021-09-18] MEDS: PANTOPRAZOLE 40 MG TABEC PO SCH (10:46)
[2021-09-18] MEDS: THIAMINE 100 MG TAB PO SCH (10:46)
[2021-09-18] MEDS: chlordiazePOXIDE 25 MG CAP PO SCH ×2 (10:46→20:04)
--- NOTE | 2021-09-18 11:50 | NUR ---
09/18/21 RD FOLLOW UP COMPLETED PLEASE REFER TO NUTRITION ASSESSMENT UNDER CARE ACTIVITY FOR ESTIMATED NUTRITIONAL NEEDS. 1. PT CURRENTLY NPO BUT WILL BE ON PUREE DIET PER MD ORDER -RECOMMENDED ENSURE BID FOR NUTRITION SUPPORT 2. MONITOR PO INTAKE 3. CONSULT RD PRN 4. RD TO FOLLOW-UP 2-3 DAYS, HIGH RISK ENEDINA BELLAMY RD
[2021-09-18 12:00] VITALS: BP 128/67
[2021-09-18] MEDS: DEXT 5% / NACL 0.45% 1,000 ML IV SCH (12:30)
[2021-09-18 16:00] VITALS: BP 157/75
--- NOTE | 2021-09-18 19:15 | NUR ---
REPORT GIVEN BY AM RN. PATIENT IS AWAKE, ALERT AND CONFUSED. NO S/SX OF PAIN NOR DISCOMFORT. SKIN WARM AND DRY TO TOUCH. IVF INFUSING WELL ORDERED IN THE RIGHT UPPER ARM, NO REDNESS NOR SWELLING NOTED. BED IN THE LOWEST AND LOCKED POSITION FOR SAFETY, CALL LIGHT WITHIN REACH.
[2021-09-18 20:00] VITALS: BP 155/88
--- NOTE | 2021-09-18 20:05 | NUR ---
DUE MEDICATIONS GIVEN WITH APPLE SAUCE ORDERED WITH HEAD OF THE BED ELEVATE, TOLERATED WELL, NO COUGHING NOTED.
[2021-09-18] MEDS ORDERED: QUEtiapine FUMARATE 25 MG TAB PO SCH (21:00)
--- NOTE | 2021-09-18 21:36 | NUR ---
INCONTINENT OF URINE, PERINEAL CARE RENDERED. MADE COMFORTABLE IN BED. CALL LIGHT IN REACH.
[2021-09-19] VITALS: BP 128/75
--- NOTE | 2021-09-19 00:30 | NUR ---
PATIENT ASLEEP. BREATHING EVEN AND UNLABORED. CALL LIGHT IN REACH,
[2021-09-19] MEDS: GAUZE TP SCH ×2 (01:11→13:35)
[2021-09-19] MEDS: DEXT 5% / NACL 0.45% 1,000 ML IV SCH ×2 (01:15→04:28)
--- NOTE | 2021-09-19 02:03 | NUR ---
ROUNDING DONE. PATIENT ASLEEP. NO S/SX OF PAIN NOR DISCOMFORT.
[2021-09-19 04:00] VITALS: BP 139/87
[2021-09-19] MEDS: PIPERACILLIN/TAZOBACTAM 3.375 GM in DEXTROSE 5% 50 ML IV SCH (04:01)
[2021-09-19] MEDS: ALBUTEROL SULFATE/IPRATROPIU 3 ML SOL IH SCH ×6 (04:14→23:32)
[2021-09-19] MEDS: ACETYLCYSTEINE 10% (100 MG/ML) 100 MG/ML VIAL INH SCH ×6 (04:14→23:32)
--- NOTE | 2021-09-19 04:55 | NUR ---
IV SITE NOTED TO BE LEAKING, REMOVED WITH INTACT CANNULA. INSERTED IV IN THE LEFT AC GAUGE 22 X 1 ATTEMPT.
--- NOTE | 2021-09-19 06:05 | NUR ---
PATIENT IS ASLEEP. NO ACUTE RESPIRATORY DISTRESS NOTED. ALL NEEDS ATTENDED TO. SAFETY PRECAUTIONS MAINTAINED DURING THE SHIFT, CALL LIGHT REMAINED WITHIN REACH.
[2021-09-19 06:16] LABS: ALBUMIN 2.8 g/dL (3.4-5.0); ANION GAP 11.9 (8-16); CREATININE 0.8 mg/dL (0.6-1.3); POTASSIUM 3.9 mmol/L (3.5-5.1); TOTAL BILIRUBIN 0.6 mg/dL (0.0-1.0)
[2021-09-19 06:29] LABS: BASOPHILS # (AUTO) 0.1 K/uL (0.00-0.22); EOSINOPHILS # (AUTO) 0.4 K/uL (0-0.4); EOSINOPHILS % (AUTO) 3.8 % (0.0-4.0); HEMOGLOBIN 12.6 g/dL (12.0-18.0); LYMPHOCYTES # (AUTO) 1.3 K/uL (2.0-11.5); LYMPHOCYTES % (AUTO) 11.1 % (20.5-51.1); MEAN CORPUSCULAR HEMOGLOBIN 31 pg (27-31); MEAN CORPUSCULAR HGB CONC 34 g/dL (33-37); MEAN CORPUSCULAR VOLUME 91.4 fL (80-94); MONOCYTES # (AUTO) 0.9 K/uL (0.8-1.0); MONOCYTES % (AUTO) 7.7 % (1.7-9.3); NEUTROPHILS # (AUTO) 9.1 K/uL (1.8-7.7); NEUTROPHILS % (AUTO) 76.4 % (42.2-75.2); PLATELET COUNT (AUTO) 883 K/uL (140-450); RED BLOOD CELL COUNT(AUTO) 4.05 MIL/uL (4.20-6.10); RED CELL DISTRIBUTION WIDTH 16.1 % (11.6-13.7)
--- NOTE | 2021-09-19 07:00 | NUR ---
BEDSIDE REPORT GIVEN TO AM NURSE. PATIENT IS ASLEEP. NOT IN ANY FORM OF DISTRESS.
--- NOTE | 2021-09-19 07:18 | NUR ---
GOT REPORT FROM THE NIGHT NURSE, PT IS SLEEPING.[email or web address]
[2021-09-19 07:38] LABS: WHITE BLOOD COUNT (AUTO) 11.9 K/uL (4.8-10.8)
--- NOTE | 2021-09-19 07:50 | NUR ---
CHEST PHYSIOTHERAPY ADMINISTERED DURING NEBULIZER TREATMENT. PATIENT TOLERATED WELL
[2021-09-19 08:00] VITALS: BP 142/97
[2021-09-19] MEDS: QUEtiapine FUMARATE 25 MG TAB PO SCH ×2 (09:00→20:44)
[2021-09-19] MEDS: THIAMINE 100 MG TAB PO SCH (09:08)
[2021-09-19] MEDS: CYANOCOBALAMIN 100 MCG TAB PO SCH (09:08)
[2021-09-19] MEDS: levETIRAcetam 500 MG in NACL 0.9% 100 ML IV SCH ×2 (09:09→21:00)
[2021-09-19] MEDS: PANTOPRAZOLE 40 MG TABEC PO SCH (09:09)
[2021-09-19] MEDS: LEVOFLOXACIN 750 MG/D5W PREMIX 150 ML IV SCH (09:59)
--- NOTE | 2021-09-19 10:02 | NUR ---
PT SLEEPY DID NOT GET HIS AM PO MED, REFUSED TO WAKE UP, DR AWARE, PT SEEMS THAT HE HAS ON AND OFF AWAKE TIME. WILL HOLD THE MED TO SEE IF HE WOULD RECEIVE WHEN HE WAKE UP. V .S STABLE AND EKG READS SR. [id number]
--- NOTE | 2021-09-19 10:54 | NUR ---
WASTED PO AM MED C\O PT STILL SLEEPY, NOT AWAKE, INFUSING IV MEDS ORDERED.[email or web address]
--- NOTE | 2021-09-19 11:38 | NUR ---
pt breathing treatment of duoneb and mucomyst, NOT GIVEN AT THIS TIME, PT IS HAVING AN EEG PERFORMED AT TIS TIME, WILL ADMISTER 1500 TREATMENT SCHEDULED
--- NOTE | 2021-09-19 12:00 | NUR ---
PT IS AWAKE ASKING FOR HIS SHOES, PULLING HIMSELF OUT OF BED AGAIN.[email or web address]
--- NOTE | 2021-09-19 15:05 | NUR ---
PT WALK UP AND OFFERED HIM PUREE LUNCH , HE ATE 100% WITH OUT CHOCKING, HOB UP WHILE FEEDING HIM. HE STARTED TALKING EVEN THOUGH IT IS HARD TO UNDERSTAND HIM. [email or web address]
[2021-09-19 16:00] VITALS: BP 108/68
--- NOTE | 2021-09-19 17:10 | NUR ---
pt is now fast asleep no SOB.[email or web address]
--- NOTE | 2021-09-19 18:55 | NUR ---
PT NOW IN BED SINGING AND MOVING, WIGGLING HIS LEGS SIDE TO SIDE. [email or web address]
--- NOTE | 2021-09-19 19:25 | NUR ---
RECEIVED ENDORSEMENT FROM DAY SHIFT NURSE FOR CONTINUITY OF PT CARE. PT IS ON BED AWAKE, ALERT AND CONFUSED. IV FLUID D5% 0.45% INFUSING WELL AT 75 ML/HR. SALINE LOCK ON LEFT FOREARM 20 G INTACT AND PATENT. PT IS SPEAKING WITH UNCLEAR WORDS AND MOSTLY MUMBLING. SKIN INTACT AND WARM.
[2021-09-19 20:00] VITALS: BP 135/89
--- NOTE | 2021-09-19 20:00 | NUR ---
ASSISTED/FEED PT NEEDED TO EAT HIS PUDDING. HE ALSO ABLE TO FINISHED HIS SUPPLEMENT. PT DENIES OF PAIN OR DISCOMFORT.
[2021-09-20] VITALS (7 sets, daily range): BP systolic 124–142; BP diastolic 73–88
[2021-09-20] MEDS: GAUZE TP SCH ×2 (01:00→12:25)
[2021-09-20] MEDS: ACETYLCYSTEINE 10% (100 MG/ML) 100 MG/ML VIAL INH SCH ×3 (02:24→11:40)
[2021-09-20] MEDS: ALBUTEROL SULFATE/IPRATROPIU 3 ML SOL IH SCH ×6 (02:24→22:59)
[2021-09-20] MEDS: DEXT 5% / NACL 0.45% 1,000 ML IV SCH ×2 (04:30→18:13)
[2021-09-20 06:09] LABS: ALBUMIN 2.7 g/dL (3.4-5.0); ANION GAP 15.4 (8-16); CARBON DIOXIDE 26.1 mmol/L (21-32); CREATININE 0.8 mg/dL (0.6-1.3); POTASSIUM 3.5 mmol/L (3.5-5.1); TOTAL BILIRUBIN 0.4 mg/dL (0.0-1.0)
[2021-09-20 06:10] LABS: BASOPHILS # (AUTO) 0.1 K/uL (0.00-0.22); BASOPHILS % (AUTO) 1.2 % (0.0-2.0); EOSINOPHILS # (AUTO) 0.4 K/uL (0-0.4); EOSINOPHILS % (AUTO) 5.5 % (0.0-4.0); HEMOGLOBIN 11.6 g/dL (12.0-18.0); LYMPHOCYTES % (AUTO) 27.5 % (20.5-51.1); MEAN CORPUSCULAR HEMOGLOBIN 31 pg (27-31); MEAN CORPUSCULAR HGB CONC 34 g/dL (33-37); MEAN CORPUSCULAR VOLUME 90.3 fL (80-94); MONOCYTES # (AUTO) 0.8 K/uL (0.8-1.0); MONOCYTES % (AUTO) 11.7 % (1.7-9.3); NEUTROPHILS # (AUTO) 3.9 K/uL (1.8-7.7); NEUTROPHILS % (AUTO) 54.1 % (42.2-75.2); PLATELET COUNT (AUTO) 801 K/uL (140-450); RED BLOOD CELL COUNT(AUTO) 3.77 MIL/uL (4.20-6.10); RED CELL DISTRIBUTION WIDTH 16.3 % (11.6-13.7); WHITE BLOOD COUNT (AUTO) 7.2 K/uL (4.8-10.8)
--- NOTE | 2021-09-20 06:25 | NUR ---
ASSISTED PT AND GIVING MORNING CARE.
--- NOTE | 2021-09-20 07:25 | NUR ---
PT IS ASLEEP AND ON STABLE CONDITION. ALL SAFETY MEASURES ARE IN PLACE. CALL LIGHT WITHIN THE REACH. ENDORSED TO DAY SHIFT NURSE FOR CONTINUITY OF PT CARE.
--- NOTE | 2021-09-20 07:48 | NUR ---
PT IS SLEEPING AND ATTEMPTING TO MOVE AROUND IN BED. BL SOFT WRIST RESTRAINTS IN PLACE. PT PULLED OUT IV. BED IN LOWEST POSITION AND SAFETY MEASURES IN PLACE.
[2021-09-20] MEDS: PANTOPRAZOLE 40 MG TABEC PO SCH (08:49)
[2021-09-20] MEDS: CYANOCOBALAMIN 100 MCG TAB PO SCH (08:49)
[2021-09-20] MEDS: QUEtiapine FUMARATE 25 MG TAB PO SCH ×2 (08:49→21:03)
[2021-09-20] MEDS: THIAMINE 100 MG TAB PO SCH (08:49)
[2021-09-20] MEDS: levETIRAcetam 500 MG in NACL 0.9% 100 ML IV SCH ×2 (08:49→21:01)
[2021-09-20] MEDS ORDERED: CRUSHER, PILL MC ONE (08:56)
[2021-09-20] MEDS: LEVOFLOXACIN 750 MG/D5W PREMIX 150 ML IV SCH (10:12)
--- NOTE | 2021-09-20 13:08 | NUR ---
PT IN STABLE CONDITION. NEW IV PLACED, RESTRAINTS REMAIN DUE TO PT CONTINUALLY TRUING TO REMOVE LINES. SAFETY MEASURES IN PLACE.
--- NOTE | 2021-09-20 18:31 | NUR ---
PT REMAINS IN BL SOFT WRIST RESTRAINTS, SEROQUEL DOSE INCREASED AND WILL MONITOR NECESSITY OF RESTRAINTS. SAFETY MEASURES IN PLACE.
--- NOTE | 2021-09-20 19:18 | NUR ---
ENDORSED CARE TO VAMP LINER RN FOR FURTHER CARE.
--- NOTE | 2021-09-20 19:19 | NUR ---
RECEIVED PT ENDORSEMENT FROM DAY SHIFT NURSE FOR CONTINUITY OF CARE. PT IS STABLE. PT IS CONFUSE, UNABLE TO UNDERSTAND INSTRUCTIONS. IV FLUID D5%-0.45% NS IS INFUSING WELL AT 75 ML/HR. IV SITE INTACT AND PATENT, NO SIGN/SYMPTOM OF INFECTION ON THE SITE. CONTINUE TO MONITOR.
[2021-09-21] VITALS: BP 121/76
[2021-09-21] MEDS: GAUZE TP SCH ×2 (01:00→12:23)
[2021-09-21] MEDS: ALBUTEROL SULFATE/IPRATROPIU 3 ML SOL IH SCH ×6 (02:53→23:00)
--- NOTE | 2021-09-21 02:55 | NUR ---
BREATHING TREATMENT GIVEN BY RT.
[2021-09-21 04:00] VITALS: BP 121/71
--- NOTE | 2021-09-21 04:00 | NUR ---
PT SLEEPS ON AND OFF AND CONFUSE.
[2021-09-21] MEDS: DEXT 5% / NACL 0.45% 1,000 ML IV SCH ×2 (04:25→20:44)
--- NOTE | 2021-09-21 06:00 | NUR ---
PT IS STILL WITH SOFT RESTRAIN, PERIODICALLY MONITOR SKIN, RELEASE AND APPLY PER PLAN. SKIN INTACT, NO REDNESS OR SWOLLEN. CONTINUE MONITORING.
--- NOTE | 2021-09-21 07:36 | NUR ---
PT IS ON STABLE CONDITION. IV FLUID IS INFUSING WELL. ALL SAFETY MEASURES IN PLACE. CALL LIGHT WITHIN THE REACH. ENDORSED TO DAY SHIFT NURSE FOR CONTINUITY OF PT CARE.
--- NOTE | 2021-09-21 07:38 | NUR ---
RECEIVED REPORT FROM TEAMCENTER CONSULTANT NURSE FOR CONTINUITY OF CARE. PT IS AOX1, UNABLE TO VERBALIZE NEEDS. RESPIRATIONS EVEN AND UNLABORED. ON ROOM AIR AND NO DISTRESS NOTED. SKIN IS WARM, DRY, AND INTACT. IV SITE ON LFA INFUSING FLUIDS ORDERED. FLACC 0. PLAN OF CARE DISCUSSED. SAFETY PRECAUTIONS IN PLACE. CALL LIGHT WITHIN REACH. WILL CONTINUE TO MONITOR.
[2021-09-21 08:00] VITALS: BP 147/92
[2021-09-21] MEDS: CYANOCOBALAMIN 100 MCG TAB PO SCH (09:32)
[2021-09-21] MEDS: THIAMINE 100 MG TAB PO SCH (09:32)
[2021-09-21] MEDS: levETIRAcetam 500 MG in NACL 0.9% 100 ML IV SCH ×2 (09:37→20:53)
[2021-09-21] MEDS: PANTOPRAZOLE 40 MG TABEC PO SCH (09:37)
[2021-09-21] MEDS: QUEtiapine FUMARATE 25 MG TAB PO SCH ×3 (09:37→17:33)
--- NOTE | 2021-09-21 09:40 | NUR ---
ALL SCHEDULED MEDS GIVEN. PT IS STABLE. NO DISTRESS NOTED. WILL CONTINUE TO MONITOR.
[2021-09-21] MEDS: LEVOFLOXACIN 750 MG/D5W PREMIX 150 ML IV SCH (11:14)
[2021-09-21 12:00] VITALS: BP 121/97
--- NOTE | 2021-09-21 12:53 | NUR ---
RECEIVED A CALL FROM NATALIE CLINICAL LIASON FROM [facility]. WANTED UPDATES ON PATIENT
--- NOTE | 2021-09-21 13:58 | NUR ---
09/21/21 RD FOLLOW UP COMPLETED PLEASE REFER TO NUTRITION ASSESSMENT UNDER CARE ACTIVITY FOR ESTIMATED NUTRITIONAL NEEDS. 1. CONTINUE PUREE DIET AND HEALTH SHAKES BID TOLERATED -PT NEEDS ASSISTANCE WITH FEEDINGS 2. RD WILL CONTINUE TO MONITOR PO INTAKE 3. RD TO FOLLOW-UP 3-5 DAYS, MODERATE RISK REVIEWED BY ENEDINA BELLAMY RD
--- NOTE | 2021-09-21 15:00 | NUR ---
IV REMOVED BY PATIENT. INSERTED NEW 20 G IV ON LAC. INTACT AND PATENT
[2021-09-21 16:00] VITALS: BP 124/92
--- NOTE | 2021-09-21 19:00 | NUR ---
IV REMOVED BY PATIENT. INSERTED NEW 20 G IV ON LAC. INTACT AND PATENT Addendum: 09/21/21 at 1903 by Scott Yeung RN RN INSERTED NEW RAC 20 G.
--- NOTE | 2021-09-21 19:32 | NUR ---
CHECKED ON PATIENT. PT IS STABLE. NO DISTRESS NOTED. WILL CONTINUE TO MONITOR.
--- NOTE | 2021-09-21 19:33 | NUR ---
ENDORSED TO VETERINARY PATHOLOGIST NURSE FOR CONTINUITY OF CARE. PT IS STABLE.
--- NOTE | 2021-09-21 19:34 | NUR ---
RECEIVED ENDORSEMENT FROM DAY SHIFT NURSE FOR CONTINUITY OF PT CARE. PT IS AWAKE AND CONFUSION. REMAINS WITH SOFT RESTRAINT ON BOTH HANDS. PT UNABLE TO UNDERSTAND CONVERSATION AND NOT ABLE TO FOLLOW COMMAND. SALINE LOCK ON RIGHT AC INTACT AND PATENT. INFUSING WELL D5%0.45% AT 75 ML/HR. SKIN INTACT.
[2021-09-21 20:00] VITALS: BP 131/85
--- NOTE | 2021-09-21 21:30 | NUR ---
PT IS AWAKE, AGITATED AND MOVE AROUND THE BED. SOFT RESTRAIN ON HAND. MONITORING PER PLAN.
--- NOTE | 2021-09-21 22:00 | NUR ---
PT IS AWAKE, ONE RESTRAIN IS OFF AND PT ATTEMPT TO CLIMB THE SIDE RAIL, RIGHT LEG OVER THE RAIL. PT IS DRY. REPOSITIONED PT TO A COMFORTABLE SIDE.
--- NOTE | 2021-09-21 23:10 | NUR ---
PT IS CONFUSE, RESTLESS AND ATTEMPT TO GET OUT OF BED. REPORTED TO PURIFICATION OPERATOR MD. DR. ROGERS PRESCRIBES RESTORIL 15MG CAP TAKE 1 CAP PO QHS PRN FOR SLEEPLESSNESS. ORDER CARRIED OUT.
--- NOTE | 2021-09-21 23:36 | NUR ---
ASSIST PT WITH PERSONAL HYGIENE AND REPOSITIONED. ADMINISTERED RESTORIL ORDERED.
[2021-09-22] VITALS: BP 141/90
--- NOTE | 2021-09-22 00:36 | NUR ---
PT IS AWAKE AND CALMER. AGITATION IS REDUCE.
--- NOTE | 2021-09-22 01:30 | NUR ---
PT DOES NOT SLEEP AND AWAKE. PT IS CONFUSE AND MOVES AROUND THE BED.
[2021-09-22] MEDS: GAUZE TP SCH ×2 (01:33→13:09)
--- NOTE | 2021-09-22 02:30 | NUR ---
PT AWAKE, DOES NOT TOLERATES AND PULLING OFF TELEMETRY WIRES
--- NOTE | 2021-09-22 03:00 | NUR ---
PT AWAKES AND MOVES AROUND.
[2021-09-22] MEDS: ALBUTEROL SULFATE/IPRATROPIU 3 ML SOL IH SCH ×6 (03:43→23:00)
--- NOTE | 2021-09-22 04:00 | NUR ---
PT MOVES AROUND, NOT ABLE TO OBTAIN BLOOD PRESSURE AND HEART RATE.
--- NOTE | 2021-09-22 07:35 | NUR ---
ENDORSED PT TO DAY SHIFT NURSE FOR CONTINUITY OF PT CARE. ALL SAFETY MEASURES IN PLACE. CALL LIGHT WITHIN THE REACH.
--- NOTE | 2021-09-22 07:45 | NUR ---
RECEIVED REPORT FROM VPK TEACHER NURSE FOR CONTINUITY OF CARE. PT IS AOX1, UNABLE TO VERBALIZE NEEDS. RESPIRATIONS EVEN AND UNLABORED. ON ROOM AIR AND NO DISTRESS NOTED. SKIN IS WARM, DRY, AND INTACT. IV SITE ON RAC 20 G INFUSING FLUIDS ORDERED. FLACC 0. PLAN OF CARE DISCUSSED. SAFETY PRECAUTIONS IN PLACE. CALL LIGHT WITHIN REACH. WILL CONTINUE TO MONITOR.
[2021-09-22 08:00] VITALS: BP 145/98
[2021-09-22] MEDS ORDERED: OLANZapine 5 MG TAB PO SCH (09:00)
[2021-09-22] MEDS: QUEtiapine FUMARATE 25 MG TAB PO SCH ×3 (09:01→13:10)
[2021-09-22] MEDS: FOLIC ACID 1 MG TAB PO SCH (09:01)
[2021-09-22] MEDS: PANTOPRAZOLE 40 MG TABEC PO SCH (09:01)
[2021-09-22] MEDS: levETIRAcetam 500 MG in NACL 0.9% 100 ML IV SCH ×2 (09:01→21:01)
[2021-09-22] MEDS: THIAMINE 100 MG TAB PO SCH (09:01)
[2021-09-22] MEDS: CYANOCOBALAMIN 100 MCG TAB PO SCH (09:02)
[2021-09-22] MEDS: DEXT 5% / NACL 0.45% 1,000 ML IV SCH ×2 (09:02→23:10)
[2021-09-22] MEDS: LEVOFLOXACIN 750 MG/D5W PREMIX 150 ML IV SCH (09:29)
--- NOTE | 2021-09-22 09:30 | NUR ---
ALL SCHEDULED MEDS GIVEN. PT IS STABLE. NO DISTRESS NOTED. WILL CONTINUE TO MONITOR.
[2021-09-22 12:00] VITALS: BP 120/83
--- NOTE | 2021-09-22 13:14 | NUR ---
UNABLE TO ADMINISTER SCHEDULED MEDS. PATIENT IN AND OUT OF SLEEP, DROWSY.
--- NOTE | 2021-09-22 13:30 | NUR ---
NOTIFIED MD REGARDING PATIENT'S CONDITION. THEY ARE AWARE AND NO NEW ORDERS RECEIVED.
[2021-09-22] MEDS: QUEtiapine FUMARATE 100 MG TAB PO SCH ×2 (13:45→17:03)
[2021-09-22 16:00] VITALS: BP 101/73
--- NOTE | 2021-09-22 17:04 | NUR ---
UNABLE TO GIVE PATIENT MEDICATION DUE TO THEIR DROWSY CONDITION. MADE AWARE TO
--- NOTE | 2021-09-22 17:08 | NUR ---
DR. MISHRA AT BEDSIDE. AWARE OF PATIENT'S CONDITION. RECEIVED ORDERS TO DC RESTRAINTS AND ADJUST MEDICATIONS
--- NOTE | 2021-09-22 19:29 | NUR ---
ENDORSED TO STRAPPER AND BUFFER NURSE FOR CONTINUITY OF CARE. PT IS STABLE.
--- NOTE | 2021-09-22 19:30 | NUR ---
RECEIVED REPORT FROM DAY SHIFT NURSE. PATIENT IS SLEEPING. PATIENT IS A&O X0. IV IS RAC 20G RUNNING D5/0.5NS AT 75ML. PATIENT IS NO LONGER ON RESTRAINTS. PATIENT IS ON ROOM AIR. BREATHING IS NORMAL WITH SYMMETRICAL RISE AND FALL OF CHEST. RAILINGS ARE PADDED FOR SEIZURE PRECAUTIONS. BED IS IN LOWEST POSITION, WHEELS LOCKED, CALL LIGHT IN PLACE. WILL CONTINUE TO OBSERVE PATIENT.
[2021-09-22 20:00] VITALS: BP_SYST 105; BP_SYST 109; BP_DIAS 70; BP_DIAS 76
--- NOTE | 2021-09-22 21:15 | NUR ---
ADMINISTERED 2100 MEDICATION TO PATIENT, IVPB. PATIENT WAS STILL SLEEPING. BREATHING IS NORMAL WITH SYMMETRICAL RISE AND FALL OF CHEST. BED WAS IN LOWEST POSITION, WHEELS LOCKED, CALL LIGHT IN REACH. WILL CONTINUE TO OBSERVE.
--- NOTE | 2021-09-22 23:45 | NUR ---
LOOKED IN ON PATIENT. PATIENT WAS STILL ASLEEP. IV WAS RUNNING D5/NS AT 75ML. PATIENT'S BREATHING WAS NORMAL WITH SYMMETRICAL RISE AND FALL OF CHEST. WILL CONTINUE TO OBSERVE PATIENT.
[2021-09-23] VITALS: BP 105/70
--- NOTE | 2021-09-23 00:30 | NUR ---
PATIENT WOKE UP AND ATTEMPTED TO GET OUT OF BED. PATIENT IS NON COOPERATIVE. PATIENT WAS FINALLY PUT BACK INTO BED. BREATHING WAS NORMAL WITH SYMMETRICAL RISE AND FALL OF CHEST. WILL CONTINUE TO OBSERVE.
[2021-09-23] MEDS: TEMAZEPAM 15 MG CAP PO PRN ×2 (01:16→22:44)
--- NOTE | 2021-09-23 01:25 | NUR ---
PATIENT HAS CONTINUOUSLY TRIED GETTING OUT OF BED AND HAS BEEN PULLING ON IV LINE. IV LINE IS STILL SECURE AND PATENT. PATIENT WAS GIVEN RESTORIL AT 0116 TO PRODUCT FINISHER IN SLEEP. PATIENT'S BREATHING IS NORMAL, BP AND HR ARE STABLE. WILL CONTINUE TO OBSERVE PATIENT.
[2021-09-23] MEDS: GAUZE TP SCH ×2 (01:29→13:07)
[2021-09-23] MEDS: DEXT 5% / NACL 0.45% 1,000 ML IV SCH (02:56)
[2021-09-23] MEDS: ALBUTEROL SULFATE/IPRATROPIU 3 ML SOL IH SCH ×6 (03:00→23:07)
--- NOTE | 2021-09-23 03:00 | NUR ---
HUNG NEW IV BAG FOR PATIENT. PATIENT WAS STILL AWAKE AND TRYING TO GET OUT OF BED. WILL CONTINUE TO OBSERVE PATIENT.
--- NOTE | 2021-09-23 03:30 | NUR ---
MEDICATION OF RESTORIL HAS BEEN INEFFECTIVE. PATIENT HAS CONTINUOUSLY TRIED TO GET OUT OF BED AND WILL OCCASIONALLY START YELLING. PATIENT'S BREATHING IS NORMAL. WILL CONTINUE TO OBSERVE PATIENT.
[2021-09-23 04:00] VITALS: BP 117/72
--- NOTE | 2021-09-23 04:10 | NUR ---
PATIENT HAD RIPPED OFF TELEMETRY AND REFUSED TO HAVE IT PUT BACK ON. NO O400 TELEMETRY FOR PATIENT. WILL CONTINUE TO OBSERVE PATIENT.
--- NOTE | 2021-09-23 06:00 | NUR ---
REACHED OUT TO PROJECT MANAGEMENT ENGINEER DOCTOR FOR ORDER OF RESTRAINTS. DR BESS AUTHORIZED ORDER OF RESTRAINTS FOR PATIENT. PATIENT TOLERATED RESTRAINTS. WILL CONTINUE TO OBSERVE PATIENT.
--- NOTE | 2021-09-23 07:45 | NUR ---
ENDORSED TO DAY SHIFT NURSE REMEDIOS FOR CONTINUITY OF CARE. PATIENT IS STABLE.
[2021-09-23 08:00] VITALS: BP 129/83
[2021-09-23] MEDS: levETIRAcetam 500 MG in NACL 0.9% 100 ML IV SCH ×2 (09:00→21:29)
[2021-09-23] MEDS: LEVOFLOXACIN 750 MG/D5W PREMIX 150 ML IV SCH (10:28)
[2021-09-23] MEDS: CYANOCOBALAMIN 100 MCG TAB PO SCH (10:32)
[2021-09-23] MEDS: QUEtiapine FUMARATE 100 MG TAB PO SCH ×3 (10:32→17:26)
[2021-09-23] MEDS: PANTOPRAZOLE 40 MG TABEC PO SCH (10:32)
[2021-09-23] MEDS: OLANZapine 5 MG TAB PO SCH (10:33)
[2021-09-23] MEDS: FOLIC ACID 1 MG TAB PO SCH (10:33)
[2021-09-23] MEDS: THIAMINE 100 MG TAB PO SCH (10:33)
[2021-09-23 12:00] VITALS: BP 121/76
[2021-09-23 16:00] VITALS: BP 114/72
--- NOTE | 2021-09-23 19:50 | NUR ---
ENDORSE PATIENT TO PM SHIFT NURSE WITH SOFT RESTRICT ON NO ACUTE DISTRESS NOTED, PIV AT RAC 20G INFUSING D5 1/2NS @75ML/HR.
--- NOTE | 2021-09-23 19:51 | NUR ---
RECEIVED PT ON BED WITH EYES CLOSED, OPEN EYES TO TOUCH, CONFUSED AND UNABLE TO FOLLOW COMMANDS, ON MEGAN SOFT WRIST RESTRAINTS DUE TO FALL RISK TRYING TO GET OOB AND ATTEMPTS TO PULL IV LINES AND TELE MONITOR, ON RESTRAINTS PROTOCOL Q2H, IVF INFUSING WELL, ON SEIZURE PRECAUTION WITH SIDE RAILS UP AND BED ALARM ON, FREQUENT ROUNDS WILL BE MADE, CLOSELY MONITORED.
[2021-09-23 20:00] VITALS: BP 107/74
--- NOTE | 2021-09-23 21:30 | NUR ---
DUE KEPPRA IVPB ADMINISTERED, FED PT WITH PUDDING, CONSUMED 1/3, INCONTINENT OF URINE, ALL NEEDS ANTICIPATED.
[2021-09-24] VITALS: BP 138/89
[2021-09-24] MEDS: GAUZE TP SCH ×2 (01:09→13:14)
[2021-09-24] MEDS: DEXT 5% / NACL 0.45% 1,000 ML IV SCH ×3 (01:50→15:37)
--- NOTE | 2021-09-24 02:00 | NUR ---
PT AWAKE, RESTLESS, FED WITH PUDDING X2, TOLERATED WELL , MONITORED CLOSELY.
[2021-09-24] MEDS: ALBUTEROL SULFATE/IPRATROPIU 3 ML SOL IH SCH ×3 (03:41→11:59)
[2021-09-24 04:00] VITALS: BP 149/96
--- NOTE | 2021-09-24 07:33 | NUR ---
PT AWAKE, NO SIGNS OF DISTRESS, RESTRAINTS IN PLACE, NO SIGNS OF INJURY, NO SEIZURE EPISODE THE WHOLE SHIFT, REPORT GIVEN TO ROSA MARIA CHILDS FOR CONTINUITY OF CARE.
[2021-09-24 08:00] VITALS: BP 155/95
[2021-09-24] MEDS: levETIRAcetam 500 MG in NACL 0.9% 100 ML IV SCH ×2 (09:15→20:20)
[2021-09-24] MEDS: LEVOFLOXACIN 750 MG/D5W PREMIX 150 ML IV SCH (09:22)
[2021-09-24] MEDS: THIAMINE 100 MG TAB PO SCH (09:24)
[2021-09-24] MEDS: PANTOPRAZOLE 40 MG TABEC PO SCH (09:25)
[2021-09-24] MEDS: QUEtiapine FUMARATE 100 MG TAB PO SCH ×3 (09:25→17:14)
[2021-09-24] MEDS: CYANOCOBALAMIN 100 MCG TAB PO SCH (09:25)
[2021-09-24] MEDS: OLANZapine 5 MG TAB PO SCH ×2 (09:25→20:20)
[2021-09-24] MEDS: FOLIC ACID 1 MG TAB PO SCH (09:25)
[2021-09-24 12:00] VITALS: BP 142/85
[2021-09-24 16:00] VITALS: BP 158/86
--- NOTE | 2021-09-24 19:46 | NUR ---
ENDORSE PATIENT TO PM SHIFT NURSE WHILE PATIENT REST IN BED W/ NO ACUTE DISTRESS NOTED, PIV L.FOREARM INFUSING D5 1/2 NS @75ML/HR
[2021-09-24 20:00] VITALS: BP 148/78
[2021-09-24] MEDS: TEMAZEPAM 15 MG CAP PO PRN (20:20)
--- NOTE | 2021-09-24 20:33 | NUR ---
PT FOUND LAYING FLAT, RESTLESS, AGITATED. NO SIGNS OF RESPIRATORY DISTRESS AT THIS TIME, ELEVATED HOB AT THIS TIME, SPO2 @ 97%, SYMMETRICAL CHEST RISE AND FALL, ANTERIOR AUSCULTATIONS REVEALED CLEAR THROUGHOUT ALL LUNG BUTLER.
[2021-09-25] VITALS: BP 143/99
[2021-09-25] MEDS: GAUZE TP SCH ×2 (00:43→13:00)
[2021-09-25] MEDS ORDERED: DIAZEPAM PFS 10 MG/2 ML SYR ONE (01:06)
[2021-09-25 04:00] VITALS: BP 135/89
[2021-09-25] MEDS: DEXT 5% / NACL 0.45% 1,000 ML IV SCH ×2 (04:43→17:50)
[2021-09-25 08:00] VITALS: BP 156/93
--- NOTE | 2021-09-25 08:00 | NUR ---
RECEIVED REPORT FROM N9IGHT SHIFT FOR CONTINUITY OF CARE. PATIENT AWAKE, CONFUSED, RESTLESS TRYING TO GET OUT OF BED. WITH SOFT RESTRAINT ON. WITH IVF ON GOING AND INFUSING WELL. ON HEART MONITOR SHOWS ST. BED IN LOW POSITION. WILL CONTINUE TO MONITOR.
[2021-09-25] MEDS: QUEtiapine FUMARATE 100 MG TAB PO SCH ×3 (09:41→17:43)
[2021-09-25] MEDS: THIAMINE 100 MG TAB PO SCH (09:41)
[2021-09-25] MEDS: levETIRAcetam 500 MG in NACL 0.9% 100 ML IV SCH ×2 (09:41→20:39)
[2021-09-25] MEDS: OLANZapine 5 MG TAB PO SCH ×2 (09:42→20:39)
[2021-09-25] MEDS: PANTOPRAZOLE 40 MG TABEC PO SCH (09:42)
[2021-09-25] MEDS: FOLIC ACID 1 MG TAB PO SCH (09:42)
[2021-09-25] MEDS: CYANOCOBALAMIN 100 MCG TAB PO SCH (09:46)
--- NOTE | 2021-09-25 10:00 | NUR ---
PATIENT VERY RESTLESS, ON RESTRAINT.REPOSITIONED AND LINEN CHANGED.
[2021-09-25] MEDS: LEVOFLOXACIN 750 MG/D5W PREMIX 150 ML IV SCH (10:34)
[2021-09-25 12:00] VITALS: BP 128/65
--- NOTE | 2021-09-25 12:00 | NUR ---
PATIENT ASLEEP, NOT IN ANY DISTRESS. WILL CONTINUE TO MONITOR.
[2021-09-25 16:00] VITALS: BP 124/65
--- NOTE | 2021-09-25 18:33 | NUR ---
PATIENT ASLEEP, MINIMIZED NOISE. WILL ENDORSE TO THE NEXT SHIFT. IN STABLE CONDITION.
[2021-09-25] MEDS ORDERED: ALBUTEROL SULFATE/IPRATROPIU 3 ML SOL IH PRN (19:00)
--- NOTE | 2021-09-25 19:24 | NUR ---
REPORT GIVEN TO THE NEXT SHIFT FOR CONTINUITY OF CARE.
--- NOTE | 2021-09-25 19:25 | NUR ---
RECEIVED REPORT FROM MORNING SHIFT NURSE. PT IS LYING ON THE BED, SLEEPING, AOX1, AND BED BOUND. PT IS ON ROOM AIR, AND PUREE DIET. PT HAS A RIGHT AC GAUGE 20. ALL SAFETY MEASURES IMPLEMENTED. BED WHEELS ON LOCKED AND BED IN LOW POSITION. CALL LIGHT WITHIN.
[2021-09-25 20:00] VITALS: BP 109/69
--- NOTE | 2021-09-25 20:39 | NUR ---
ALL SCHEDULED PRESCRIBED MEDICATION WAS GIVEN TO PT PER MD ORDER. PT. TOLERATED IT WELL. ALL SAFETY MEASURES IMPLEMENTED. CALL LIGHT WITHIN REACH, BED IN LOW POSITION AND BED WHEELS LOCKED.
[2021-09-25] MEDS: DIAZEPAM PFS 10 MG/2 ML SYR IVP PRN (23:06)
--- NOTE | 2021-09-25 23:06 | NUR ---
PT WAS AGITATED. PRN MEDICATION WAS GIVEN TO PT PER MD ORDER. ALL SAFETY MEASURES IMPLEMENTED. CALL LIGHT WITHIN REACH. BED WHEELS LOCKED AND BED IN LOW POSITION.
[2021-09-26] VITALS: BP 142/83
[2021-09-26] MEDS: GAUZE TP SCH ×2 (00:35→13:35)
--- NOTE | 2021-09-26 02:00 | NUR ---
PT IS ON SLEEP. CHEST RISE AND FALL SYMMETRICALLY NOTED. NO S/S OF RESPIRATORY DISTRESS NOTED. ALL SAFETY MEASURES IMPLEMENTED. CALL LIGHT WITHIN REACH. BED WHEELS LOCKED AND BED IN LOW POSITION.
[2021-09-26 04:00] VITALS: BP 131/85
--- NOTE | 2021-09-26 04:00 | NUR ---
MORNING CARE WAS GIVEN TO PT. CHANGED DIAPER, LINENS AND GOWN. PT STILL VERY CONFUSED AND MOVED A LOT TO THE BED. ALL SAFETY MEASURES IMPLEMENTED. CALL LIGHT WITHIN REACH. BED WHEELS LOCKED AND BED IN LOW POSITION.
[2021-09-26] MEDS: DIAZEPAM PFS 10 MG/2 ML SYR IVP PRN ×3 (05:57→23:53)
--- NOTE | 2021-09-26 06:00 | NUR ---
CHANGED THE PT DIAPER AGAIN. ALL SAFETY MEASURES IMPLEMENTED. CALL LIGHT WITHIN REACH. BED WHEELS LOCKED AND BED IN LOW POSITION.
[2021-09-26] MEDS: DEXT 5% / NACL 0.45% 1,000 ML IV SCH ×2 (07:10→20:19)
--- NOTE | 2021-09-26 07:17 | NUR ---
PT IS STABLE. ENDORSED PT TO MORNING SHIFT NURSE FOR CONTINUITY OF CARE.
[2021-09-26 08:00] VITALS: BP 124/78
--- NOTE | 2021-09-26 08:00 | NUR ---
RECEIVED REPORT FROM THE CARAMEL CUTTER HELPER FOR CONTINUITY OF CARE. PATIENT ASLEEP BUT AROUSABLE.NOT IN ANY DISTRESS NOTED. ON SOFT WRIST RESTRAINT. WITH IVF ON GOING AND INFUSING WELL. WITH [id number] MONITOR AND SHOWS SR AND ST. BED IN LOW POSITION. WILL CONTINUE TO MONITOR.
[2021-09-26] MEDS: QUEtiapine FUMARATE 100 MG TAB PO SCH ×3 (09:39→16:58)
[2021-09-26] MEDS: levETIRAcetam 500 MG in NACL 0.9% 100 ML IV SCH ×2 (09:39→20:25)
[2021-09-26] MEDS: FOLIC ACID 1 MG TAB PO SCH (09:39)
[2021-09-26] MEDS: OLANZapine 5 MG TAB PO SCH ×2 (09:39→20:25)
[2021-09-26] MEDS: CYANOCOBALAMIN 100 MCG TAB PO SCH (09:39)
[2021-09-26] MEDS: PANTOPRAZOLE 40 MG TABEC PO SCH (09:40)
[2021-09-26] MEDS: THIAMINE 100 MG TAB PO SCH (09:40)
--- NOTE | 2021-09-26 10:00 | NUR ---
ALL DUE MEDICATIONS GIVEN AND TOLERATED WELL. ON PUREED DIET AND ATE WITH GOOD APPETITE. PATIENT IS A FEEDER.
--- NOTE | 2021-09-26 11:30 | NUR ---
PATIENT RESTLESS AND AGITATED TRY TO GET OUT OF BED, TRY TO CALM HIM DOWN. HE WILL LISTEN FOR FEW MINUTES AND CALM DOWN. WILL CONTINUE TO MONITOR.
[2021-09-26 12:00] VITALS: BP 119/92
[2021-09-26] MEDS: LEVOFLOXACIN 750 MG/D5W PREMIX 150 ML IV SCH (12:29)
[2021-09-26 16:00] VITALS: BP 129/79
--- NOTE | 2021-09-26 17:13 | NUR ---
09/26/21 RD FOLLOW UP COMPLETED. PLEASE REFER TO NUTRITION ASSESSMENT UNDER CARE ACTIVITY FOR ESTIMATED NUTRITIONAL NEEDS. 1. CONTINUE PUREE DIET AND HEALTHSHAKES BID TOLERATED -PT NEEDS ASSISTANCE WITH FEEDINGS 2. RD WILL CONTINUE TO MONITOR PO INTAKE 3. RD TO FOLLOW-UP IN 3-5 DAYS PATIENT IS MODERATE RISK. RENETTA SPENCER RD
--- NOTE | 2021-09-26 19:20 | NUR ---
REPORT GIVEN TO THE LIFT BUILDER WHOLE FOR CONTINUITY OF CARE. PATIENT IS STILL RESTLESS.
--- NOTE | 2021-09-26 19:21 | NUR ---
RECEIVED REPORT FROM MORNING SHIFT NURSE. PT IS LYING ON THE BED, VERY CONFUSE, AOX1, AND BED BOUND. PT IS ON ROOM AIR, AND PUREE DIET. PT HAS A RIGHT AC GAUGE 20 RUNNING WITH D5 1/2 NS AT 75ML/HR. ALL SAFETY MEASURES IMPLEMENTED. BED WHEELS ON LOCKED AND BED IN LOW POSITION. CALL LIGHT WITHIN.
--- NOTE | 2021-09-26 20:25 | NUR ---
ALL SCHEDULED PRESCRIBED MEDICATION WAS GIVEN TO PT PER MD ORDER. PT TOLERATED IT WELL. ALL SAFETY MEASURES IMPLEMENTED. CALL LIGHT WITHIN REACH. BED WHEELS LOCKED AND BED IN LOW POSITION.
--- NOTE | 2021-09-26 23:00 | NUR ---
IV PULLED OUT. INSERTED NEW IV ON LEFT FOREARM GAUGE 22. IV IS NOW PATENT AND INTACT. ALL SAFETY MEASURES IMPLEMENTED. CALL LIGHT WITHIN REACH. BED WHEELS LOCKED AND BED IN LOW POSITION.
--- NOTE | 2021-09-26 23:53 | NUR ---
PT IS AGITATED, PRN PAIN MEDICATION WAS GIVEN TO PT. ALL SAFETY MEASURES IMPLEMENTED. CALL LIGHT WITHIN REACH. BED WHEELS LOCKED AND BED IN LOW POSITION.
[2021-09-27] VITALS: BP 129/75
[2021-09-27] MEDS: GAUZE TP SCH ×2 (00:55→13:12)
--- NOTE | 2021-09-27 01:00 | NUR ---
PT WAS CLEANED AND CHANGED DIAPER, GOWNS AND LINENS. ALL SAFETY MEASURES IMPLEMENTED. BED WHEELS ON LOCKED. BED IN LOW POSITION AND CALL LIGHT WITHIN REACH.
--- NOTE | 2021-09-27 04:00 | NUR ---
MOVED THE PT UP, ON THE HEAD OF THE BED AND SECURED THE RESTRAINTS. IV LINE CARE WAS ALSO DONE. ALL SAFETY MEASURES IMPLEMENTED. BED WHEELS ON LOCKED. BED IN LOW POSITION AND CALL LIGHT WITHIN REACH.
--- NOTE | 2021-09-27 07:34 | NUR ---
PT IS STABLE. ENDORSED PT TO MORNING SHIFT NURSE FOR CONTINUITY OF CARE.
--- NOTE | 2021-09-27 07:36 | NUR ---
RECEIVED REPORT FROM REHABILITATION CONSTRUCTION SPECIALIST NURSE FOR CONTINUITY OF CARE. PT IS AOX1, UNABLE TO VERBALIZE NEEDS. RESPIRATIONS EVEN AND UNLABORED. ON ROOM AIR AND NO DISTRESS NOTED. SKIN IS WARM, DRY, AND INTACT. IV SITE ON LFA 22 G INFUSING FLUIDS ORDERED. FLACC 0. PLAN OF CARE DISCUSSED. SAFETY PRECAUTIONS IN PLACE. CALL LIGHT WITHIN REACH. WILL CONTINUE TO MONITOR.
[2021-09-27 08:00] VITALS: BP 135/98
[2021-09-27] MEDS: THIAMINE 100 MG TAB PO SCH (09:00)
[2021-09-27] MEDS: PANTOPRAZOLE 40 MG TABEC PO SCH (09:00)
[2021-09-27] MEDS: OLANZapine 5 MG TAB PO SCH ×2 (09:00→20:42)
[2021-09-27] MEDS: FOLIC ACID 1 MG TAB PO SCH (09:00)
[2021-09-27] MEDS: QUEtiapine FUMARATE 100 MG TAB PO SCH ×3 (09:01→16:55)
[2021-09-27] MEDS: CYANOCOBALAMIN 100 MCG TAB PO SCH (09:01)
[2021-09-27] MEDS: levETIRAcetam 500 MG in NACL 0.9% 100 ML IV SCH ×2 (09:02→20:26)
--- NOTE | 2021-09-27 09:30 | NUR ---
ALL SCHEDULED MEDS GIVEN. PT IS STABLE. NO DISTRESS NOTED. WILL CONTINUE TO MONITOR.
[2021-09-27] MEDS: DEXT 5% / NACL 0.45% 1,000 ML IV SCH ×2 (10:23→23:10)
--- NOTE | 2021-09-27 11:45 | NUR ---
CHECKED ON PATIENT. PT IS STABLE. NO DISTRESS NOTED. WILL CONTINUE TO MONITOR.
--- NOTE | 2021-09-27 13:45 | NUR ---
HELD SEROQUEL DUE TO DROWSINESS AND INABILITY TO SWALLOW
[2021-09-27 16:00] VITALS: BP 122/78
--- NOTE | 2021-09-27 16:55 | NUR ---
HELD SEROQUEL DUE TO DROWSINESS AND INABILITY TO SWALLOW
--- NOTE | 2021-09-27 19:35 | NUR ---
ENDORSED TO GAS BRAZER NURSE FOR CONTINUITY OF CARE. PT IS STABLE.
--- NOTE | 2021-09-27 19:40 | NUR ---
RECEIVED REPORT FROM DAY SHIFT NURSE FOR CONTINUITY OF CARE. PT CONFUSED, TRYING TO GET OUT OF BED. 2 POINT WRIST RESTRAINTS SECURED. RESPIRATIONS EVEN AND UNLABORED. ON ROOM AIR AND NO DISTRESS NOTED. SKIN IS WARM, DRY, AND INTACT. IV SITE ON LFA 22 G INFUSING FLUIDS ORDERED. FLACC 0. PLAN OF CARE DISCUSSED. SAFETY PRECAUTIONS IN PLACE. CALL LIGHT WITHIN REACH. WILL CONTINUE TO MONITOR.
[2021-09-27] MEDS: TEMAZEPAM 15 MG CAP PO PRN (20:43)
--- NOTE | 2021-09-27 21:30 | NUR ---
SCHEDULED MEDICATIONS GIVEN. PT TOLERATED WELL. WILL CONTINUE TO MONITOR.
--- NOTE | 2021-09-27 21:57 | NUR ---
PT WAS CLEANED AND CHANGED. ALL SAFETY MEASURES IMPLEMENTED.BED IN LOW LOCKED POSITION AND CALL LIGHT WITHIN REACH.WILL CONTINUE TO MONITOR.
[2021-09-28] VITALS: BP 120/80
--- NOTE | 2021-09-28 00:38 | NUR ---
PT ON BED, NO DISTRESS NOTED.BREATHING EQUAL AND UNLABORED. ALL PRECAUTIONS IN PLACE. WILL CONTINUE TO MONITOR.
[2021-09-28] MEDS: GAUZE TP SCH ×2 (01:09→12:59)
--- NOTE | 2021-09-28 02:15 | NUR ---
PT WAS CLEANED AND CHANGED. ALL SAFETY MEASURES IMPLEMENTED.BED IN LOW LOCKED POSITION AND CALL LIGHT WITHIN REACH.WILL CONTINUE TO MONITOR.
--- NOTE | 2021-09-28 04:15 | NUR ---
PT WAS CLEANED AND CHANGED. ALL SAFETY MEASURES IMPLEMENTED.BED IN LOW LOCKED POSITION AND CALL LIGHT WITHIN REACH.WILL CONTINUE TO MONITOR.
[2021-09-28] MEDS: DIAZEPAM PFS 10 MG/2 ML SYR IVP PRN (05:39)
--- NOTE | 2021-09-28 05:39 | NUR ---
PT AGITATED,TRYING TO GET OUT OF BED. PRN VALIUM GIVEN. WILL CONTINUE TO MONITOR.
--- NOTE | 2021-09-28 06:42 | NUR ---
PT IS STABLE. NO ACUTE THROUGHOUT THE NIGHT. NO S/SX OF DISTRESS. ALL NEEDS ATTENDED. NO COMPLAINS OF PAIN AT THIS MOMENT. ALL PRECAUTIONS IN PLACE. CALL LIGHT WITHIN REACH. WILL ENDORSE TO AM SHIFT NURSE.
--- NOTE | 2021-09-28 07:32 | NUR ---
RECEIVED REPORT FROM DIRECTOR CHANNEL NURSE FOR CONTINUITY OF CARE. PT IS AOX1, UNABLE TO VERBALIZE NEEDS. RESPIRATIONS EVEN AND UNLABORED. ON ROOM AIR AND NO DISTRESS NOTED. SKIN IS WARM, DRY, AND INTACT. IV SITE ON rFA 22 G INFUSING FLUIDS ORDERED. FLACC 0. PLAN OF CARE DISCUSSED. SAFETY PRECAUTIONS IN PLACE. CALL LIGHT WITHIN REACH. WILL CONTINUE TO MONITOR.
[2021-09-28 08:00] VITALS: BP 137/93
--- NOTE | 2021-09-28 09:30 | NUR ---
ALL SCHEDULED MEDS GIVEN. PT IS STABLE. NO DISTRESS NOTED. WILL CONTINUE TO MONITOR.
[2021-09-28] MEDS: levETIRAcetam 500 MG in NACL 0.9% 100 ML IV SCH ×2 (09:34→21:18)
[2021-09-28] MEDS: CYANOCOBALAMIN 100 MCG TAB PO SCH (09:35)
[2021-09-28] MEDS: PANTOPRAZOLE 40 MG TABEC PO SCH (09:35)
[2021-09-28] MEDS: QUEtiapine FUMARATE 100 MG TAB PO SCH ×3 (09:35→18:00)
[2021-09-28] MEDS: FOLIC ACID 1 MG TAB PO SCH (09:35)
[2021-09-28] MEDS: THIAMINE 100 MG TAB PO SCH (09:35)
[2021-09-28] MEDS: OLANZapine 5 MG TAB PO SCH ×3 (09:35→21:17)
[2021-09-28] MEDS: DEXT 5% / NACL 0.45% 1,000 ML IV SCH (12:31)
--- NOTE | 2021-09-28 13:10 | NUR ---
ALL SCHEDULED MEDS GIVEN. PT IS STABLE. NO DISTRESS NOTED. WILL CONTINUE TO MONITOR.
[2021-09-28 16:00] VITALS: BP 104/73
--- NOTE | 2021-09-28 18:00 | NUR ---
HELD SEROQUEL DUE TO DROWSINESS AND INABILITY TO SWALLOW
--- NOTE | 2021-09-28 19:22 | NUR ---
ENDORSED TO GAS STATION CLERK NURSE FOR CONTINUITY OF CARE. PT IS STABLE.
--- NOTE | 2021-09-28 19:45 | NUR ---
RECEIVED REPORT FROM TOM YING RN FOR CONTINUITY OF CARE. PT IS STABLE ASLEEP IN BED. A&OX1 LETHARGIC AND SLEEPY. RESPONDS MOMENTARILY TO STERNAL RUB AND SHAKING. ON RM AIR/O2 WITH NO S/S OF DISTRESS. RR EVEN AND UNLABORED WITH EQUAL CHEST RISE. GI INTACT. DID NOT TOUCH DINNER ASLEEP. PT'S SKIN IS INTACT. IV RFA 18G IS PATENT INFUSING IVF D50.45@75CC/HR. BILATERAL SOFT WRIST RESTRAINTS IN PLACE. PT IS BEDBOUND AND INCONTINENT. ALL SAFETY MEASURES IN PLACE. CALL LIGHT WITHIN REACH. WILL CONTINUE TO MONITOR.
[2021-09-28 20:00] VITALS: BP 122/71
[2021-09-28] MEDS: TEMAZEPAM 15 MG CAP PO PRN (21:16)
--- NOTE | 2021-09-28 21:20 | NUR ---
HS ZYPREXA AND RESTORIL NOT GIVEN PT TOO SLEEPY.
[2021-09-29] MEDS: GAUZE TP SCH ×2 (01:30→13:05)
[2021-09-29] MEDS: DEXT 5% / NACL 0.45% 1,000 ML IV SCH ×2 (02:09→15:10)
[2021-09-29 05:45] LABS: BASOPHILS % (AUTO) 0.9 % (0.0-2.0); EOSINOPHILS # (AUTO) 0.4 K/uL (0-0.4); EOSINOPHILS % (AUTO) 7.7 % (0.0-4.0); HEMATOCRIT 33.1 % (36-52); HEMOGLOBIN 11.6 g/dL (12.0-18.0); LYMPHOCYTES # (AUTO) 1.6 K/uL (2.0-11.5); LYMPHOCYTES % (AUTO) 33.5 % (20.5-51.1); MEAN CORPUSCULAR HEMOGLOBIN 30 pg (27-31); MEAN CORPUSCULAR HGB CONC 35 g/dL (33-37); MEAN CORPUSCULAR VOLUME 86.8 fL (80-94); MONOCYTES # (AUTO) 0.6 K/uL (0.8-1.0); MONOCYTES % (AUTO) 13.2 % (1.7-9.3); NEUTROPHILS # (AUTO) 2.2 K/uL (1.8-7.7); NEUTROPHILS % (AUTO) 44.7 % (42.2-75.2); PLATELET COUNT (AUTO) 394 K/uL (140-450); RED BLOOD CELL COUNT(AUTO) 3.81 MIL/uL (4.20-6.10); RED CELL DISTRIBUTION WIDTH 15.8 % (11.6-13.7); WHITE BLOOD COUNT (AUTO) 4.8 K/uL (4.8-10.8)
[2021-09-29 05:55] LABS: ANION GAP 11.4 (8-16); CREATININE 0.7 mg/dL (0.6-1.3); POTASSIUM 3.4 mmol/L (3.5-5.1)
--- NOTE | 2021-09-29 07:40 | NUR ---
RECEIVED REPORT FROM MOBILE CRANE OPERATOR NURSE. PATIENT LYING DOWN IN BED, SLEEPING, AROUSABLE BY VOICE. SOFT WRIST RESTRAINTS ON PATIENT FOR TRYING TO CONTINUOUSLY GET OUT OF BED. IV SITE INTACT, PATENT, AND INFUSING IVF PER MD ORDERS. REVIEWED PLAN OF CARE WITH PATIENT, UNABLE TO COMPREHEND. SAFETY MEASURES IN PLACE, CALL LIGHT WITHIN REACH. WILL CONTINUE TO MONITOR.
[2021-09-29 08:00] VITALS: BP 146/87
[2021-09-29] MEDS: OLANZapine 5 MG TAB PO SCH ×2 (09:47→21:50)
[2021-09-29] MEDS: THIAMINE 100 MG TAB PO SCH (09:47)
[2021-09-29] MEDS: FOLIC ACID 1 MG TAB PO SCH (09:47)
[2021-09-29] MEDS: CYANOCOBALAMIN 100 MCG TAB PO SCH (09:47)
[2021-09-29] MEDS: QUEtiapine FUMARATE 100 MG TAB PO SCH ×3 (09:47→17:53)
[2021-09-29] MEDS: levETIRAcetam 500 MG in NACL 0.9% 100 ML IV SCH ×2 (09:47→21:50)
[2021-09-29] MEDS: PANTOPRAZOLE 40 MG TABEC PO SCH (09:48)
--- NOTE | 2021-09-29 09:48 | NUR ---
SCHEDULED MEDICATIONS DUE GIVEN. WILL CONTINUE TO MONITOR.
--- NOTE | 2021-09-29 13:06 | NUR ---
SCHEDULED MEDICATIONS DUE GIVEN. WILL CONTINUE TO MONITOR.
--- NOTE | 2021-09-29 13:30 | NUR ---
PHYSICAL THERAPY CO-SIGN The Physical Therapy Progress Notes documented by Food Specialist have been reviewed. Reviewed/Co-Signed by: Malu Burciaga Documentation Done by: LIZZY DUARTE PTA Addendum: 09/29/21 at 1331 by Malu Burciaga PT Amended: Links added.
[2021-09-29] MEDS: DIAZEPAM PFS 10 MG/2 ML SYR IVP PRN ×2 (14:40→23:47)
--- NOTE | 2021-09-29 14:43 | NUR ---
SCHEDULED MEDICATIONS DUE GIVEN. WILL CONTINUE TO MONITOR.
[2021-09-29 16:00] VITALS: BP 140/80
--- NOTE | 2021-09-29 17:53 | NUR ---
SCHEDULED MEDICATIONS DUE GIVEN. WILL CONTINUE TO MONITOR.
--- NOTE | 2021-09-29 19:35 | NUR ---
GAVE REPORT TO SALES AND SERVICE CONSULTANT NURSE FOR CONTINUITY OF CARE. PATIENT IN STABLE CONDITION.
--- NOTE | 2021-09-29 20:00 | NUR ---
RECEIVED REPORT FROM AM NURSE FOR CONTINUITY OF CARE. PT A&OX 0-1. BILATERAL SOFT WRIST RESTRAINTS IN PLACE. PT TRYING TO CLIMB OUT OF BED. BED ALARM ON BUT BED IS BROKEN. HS MEDS GIVEN. PT REPOSITIONED IN BED AND DANGELO CARE RENDERED. WILL CONTINUE TO MONITOR.
[2021-09-29] MEDS: TEMAZEPAM 15 MG CAP PO PRN (22:19)
--- NOTE | 2021-09-29 23:47 | NUR ---
PT SQUIRMING THROWING LEGS OVER THE BED RAILS DESPITE BILATERAL SOFT WRIST RESTRAINTS. VALIUM 5MG IVP GIVEN WITH MINIMAL RESULTS AFTER 1 HR. REQUIRES FREQ VISUAL CHECKS.
[2021-09-30] VITALS: BP 124/83
[2021-09-30] MEDS: GAUZE TP SCH ×2 (01:19→13:48)
[2021-09-30] MEDS: DEXT 5% / NACL 0.45% 1,000 ML IV SCH ×2 (04:30→18:27)
[2021-09-30 07:08] LABS: BASOPHILS # (AUTO) 0.1 K/uL (0.00-0.22); BASOPHILS % (AUTO) 0.6 % (0.0-2.0); EOSINOPHILS # (AUTO) 0.4 K/uL (0-0.4); EOSINOPHILS % (AUTO) 5.5 % (0.0-4.0); HEMATOCRIT 36.6 % (36-52); HEMOGLOBIN 12.5 g/dL (12.0-18.0); LYMPHOCYTES # (AUTO) 1.6 K/uL (2.0-11.5); LYMPHOCYTES % (AUTO) 19.5 % (20.5-51.1); MEAN CORPUSCULAR HEMOGLOBIN 30 pg (27-31); MEAN CORPUSCULAR HGB CONC 34 g/dL (33-37); MEAN CORPUSCULAR VOLUME 87.4 fL (80-94); MONOCYTES # (AUTO) 0.6 K/uL (0.8-1.0); MONOCYTES % (AUTO) 7.8 % (1.7-9.3); NEUTROPHILS # (AUTO) 5.4 K/uL (1.8-7.7); NEUTROPHILS % (AUTO) 66.6 % (42.2-75.2); PLATELET COUNT (AUTO) 378 K/uL (140-450); RED BLOOD CELL COUNT(AUTO) 4.19 MIL/uL (4.20-6.10); RED CELL DISTRIBUTION WIDTH 15.9 % (11.6-13.7); WHITE BLOOD COUNT (AUTO) 8.2 K/uL (4.8-10.8)
--- NOTE | 2021-09-30 07:20 | NUR ---
ENDORSED PT REPORT TO AM ROSA MARIA YEUNG FOR CONTINUITY OF CARE. PT STILL TRYING TO GET OUT OF BED. REPOSITIONED PT X 2. PT IS STABLE. ALL NEEDS MET THROUGHOUT THE SHIFT.
[2021-09-30 08:00] VITALS: BP 157/95
--- NOTE | 2021-09-30 08:00 | NUR ---
GOT REPORT FROM THE NIGHT NURSE, PT AWAKE TRYING TO CLIMB OUT OF BED THE SOFT RESTRAINT ON IN BOTH ARM.[id number]
[2021-09-30] MEDS: FOLIC ACID 1 MG TAB PO SCH (09:13)
[2021-09-30] MEDS: levETIRAcetam 500 MG in NACL 0.9% 100 ML IV SCH ×2 (09:18→20:09)
[2021-09-30] MEDS: OLANZapine 5 MG TAB PO SCH ×2 (09:19→20:09)
[2021-09-30] MEDS: THIAMINE 100 MG TAB PO SCH (09:19)
[2021-09-30] MEDS: PANTOPRAZOLE 40 MG TABEC PO SCH (09:19)
[2021-09-30] MEDS: CYANOCOBALAMIN 100 MCG TAB PO SCH (09:19)
[2021-09-30] MEDS: QUEtiapine FUMARATE 100 MG TAB PO SCH ×3 (09:19→17:05)
--- NOTE | 2021-09-30 11:14 | NUR ---
PHYSICAL THERAPY CO-SIGN The Physical Therapy Progress Notes documented by Fire Hydrant Operator have been reviewed. Reviewed/Co-Signed by: Malu Burciaga Documentation Done by: GERALD BALL PTA Addendum: 09/30/21 at 1115 by Malu Burciaga PT Amended: Links added.
[2021-09-30 16:00] VITALS: BP 142/89
--- NOTE | 2021-09-30 16:20 | NUR ---
09/30/21 RD FOLLOW UP COMPLETED PLEASE REFER TO NUTRITION ASSESSMENT UNDER CARE ACTIVITY FOR ESTIMATED NUTRITIONAL NEEDS. 1. CONTINUE PUREE DIET AND HEALTHSHAKES TID TOLERATED -PT NEEDS ASSISTANCE WITH FEEDINGS 2. RD WILL CONTINUE TO MONITOR PO INTAKE 3. RD TO FOLLOW-UP IN 7 DAYS PATIENT IS LOW RISK. ENEDINA BELLAMY, RD
--- NOTE | 2021-09-30 18:39 | NUR ---
PT REFUSED TO EAT AND EVEN TO WAKE UP FOR THE AFTERNOON SEROQUEL, PREPARED AND WASTED. PT DID NOT WAKE UP FOR DINNER ALSO . TRIED THREE TIME TO WAKE HIM UP HE IS DEEP ASLEEP WILL NOT TAKE THE MED.[id number]
--- NOTE | 2021-09-30 19:05 | NUR ---
RECEIVED REPORT FROM DAY SHIFT NURSE FOR CONTINUITY OF CARE. PT ASLEEP, ON 2 POINT WRIST RESTRAINTS. RESPIRATIONS EVEN AND UNLABORED. ON ROOM AIR AND NO DISTRESS NOTED. SKIN IS WARM, DRY, AND INTACT. IV SITE ON RFA 18 G INFUSING FLUIDS ORDERED. FLACC 0. PLAN OF CARE DISCUSSED. SAFETY PRECAUTIONS IN PLACE. CALL LIGHT WITHIN REACH. WILL CONTINUE TO MONITOR.
--- NOTE | 2021-09-30 22:00 | NUR ---
SCHEDULED MEDICATIONS GIVEN. PT TOLERATED WELL. WILL CONTINUE TO MONITOR.
[2021-10-01] VITALS: BP 125/83
[2021-10-01] MEDS: DIAZEPAM PFS 10 MG/2 ML SYR IVP PRN ×3 (00:32→17:33)
--- NOTE | 2021-10-01 00:40 | NUR ---
PT RESTLESS. TRYING TO GET OUT OF BED.PRN DIAZEPAM GIVEN. WILL CONTINUE TO MONITOR.
[2021-10-01] MEDS: GAUZE TP SCH ×2 (01:00→12:34)
[2021-10-01] MEDS: DEXT 5% / NACL 0.45% 1,000 ML IV SCH ×2 (07:10→20:30)
[2021-10-01 07:18] LABS: BASOPHILS # (AUTO) 0.1 K/uL (0.00-0.22); BASOPHILS % (AUTO) 0.8 % (0.0-2.0); EOSINOPHILS # (AUTO) 0.4 K/uL (0-0.4); EOSINOPHILS % (AUTO) 5.8 % (0.0-4.0); HEMOGLOBIN 12.6 g/dL (12.0-18.0); LYMPHOCYTES # (AUTO) 1.6 K/uL (2.0-11.5); MEAN CORPUSCULAR HEMOGLOBIN 30 pg (27-31); MEAN CORPUSCULAR HGB CONC 34 g/dL (33-37); MEAN CORPUSCULAR VOLUME 87.6 fL (80-94); MONOCYTES # (AUTO) 0.6 K/uL (0.8-1.0); MONOCYTES % (AUTO) 8.7 % (1.7-9.3); NEUTROPHILS # (AUTO) 4.4 K/uL (1.8-7.7); NEUTROPHILS % (AUTO) 62.7 % (42.2-75.2); PLATELET COUNT (AUTO) 367 K/uL (140-450); RED BLOOD CELL COUNT(AUTO) 4.23 MIL/uL (4.20-6.10); RED CELL DISTRIBUTION WIDTH 16.2 % (11.6-13.7); WHITE BLOOD COUNT (AUTO) 7.1 K/uL (4.8-10.8)
[2021-10-01] MEDS: FOLIC ACID 1 MG TAB PO SCH (08:18)
[2021-10-01] MEDS: levETIRAcetam 500 MG in NACL 0.9% 100 ML IV SCH ×2 (08:18→20:53)
[2021-10-01] MEDS: PANTOPRAZOLE 40 MG TABEC PO SCH (08:19)
[2021-10-01] MEDS: QUEtiapine FUMARATE 100 MG TAB PO SCH ×3 (08:19→17:23)
[2021-10-01] MEDS: THIAMINE 100 MG TAB PO SCH (08:19)
[2021-10-01] MEDS: OLANZapine 5 MG TAB PO SCH ×2 (08:20→20:51)
[2021-10-01] MEDS: CYANOCOBALAMIN 100 MCG TAB PO SCH (09:00)
--- NOTE | 2021-10-01 11:32 | NUR ---
Patient attempted to get out of bed many times. Instructed patient to stay in bed. Repositioned patient and pulled patient up. Patient not compliant. At around 1130, patient's restraints was "free." Placed patient back on bilateral wrist restraints. Addendum: 10/01/21 at 1135 by [facility] 02 RN RN Gave PRN Valium because patient was agitated and restless.
--- NOTE | 2021-10-01 14:25 | NUR ---
Physical therapy working with patient getting patient out of bed to walk outside hallway.
[2021-10-01 15:14] VITALS: BP 145/89
--- NOTE | 2021-10-01 19:00 | NUR ---
PHYSICAL THERAPY CO-SIGN The Physical Therapy Progress Notes documented by Hot Man have been reviewed. Reviewed/Co-Signed by: Cheryl Hull PT Documentation Done by:GERALD BALL PTA REC: [facility] (REFER TO CASE MGMT) Addendum: 10/01/21 at 1901 by Cheryl Hull PT Amended: Links added.
--- NOTE | 2021-10-01 19:20 | NUR ---
RECEIVED PT FROM AM NURSE FOR CONTINUITY OF CARE. PT IS STABLE
--- NOTE | 2021-10-01 21:30 | NUR ---
ALL MEDICATIONS GIVEN ,NO ADVERSE REACTIONS NOTED
--- NOTE | 2021-10-02 01:00 | NUR ---
CHANGED IV SITE TO RIGHT ARM 22G ,INTACT AND PATENT
[2021-10-02] MEDS: GAUZE TP SCH ×2 (01:32→13:26)
[2021-10-02] MEDS: POTASSIUM CHLORIDE 20% 40 MEQ/15 ML UDC GT PRN (02:19)
[2021-10-02] MEDS: DIAZEPAM PFS 10 MG/2 ML SYR IVP PRN ×2 (02:33→09:21)
--- NOTE | 2021-10-02 03:00 | NUR ---
PATIENT ASLEEP,BREATHING EVEN AND UNLABORED,NO DISTRESS NOTED,ALL SAFETY MEASURES IN PLACE
[2021-10-02 04:00] VITALS: BP 153/83
[2021-10-02 06:14] LABS: BASOPHILS % (AUTO) 0.8 % (0.0-2.0); EOSINOPHILS # (AUTO) 0.3 K/uL (0-0.4); EOSINOPHILS % (AUTO) 4.6 % (0.0-4.0); HEMATOCRIT 37.4 % (36-52); HEMOGLOBIN 12.8 g/dL (12.0-18.0); LYMPHOCYTES # (AUTO) 1.6 K/uL (2.0-11.5); LYMPHOCYTES % (AUTO) 27.3 % (20.5-51.1); MEAN CORPUSCULAR HEMOGLOBIN 30 pg (27-31); MEAN CORPUSCULAR HGB CONC 34 g/dL (33-37); MONOCYTES # (AUTO) 0.7 K/uL (0.8-1.0); MONOCYTES % (AUTO) 12.5 % (1.7-9.3); NEUTROPHILS # (AUTO) 3.1 K/uL (1.8-7.7); NEUTROPHILS % (AUTO) 54.8 % (42.2-75.2); PLATELET COUNT (AUTO) 346 K/uL (140-450); RED CELL DISTRIBUTION WIDTH 16.1 % (11.6-13.7); WHITE BLOOD COUNT (AUTO) 5.7 K/uL (4.8-10.8)
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
[2021-10-02] MEDS: levETIRAcetam 500 MG in NACL 0.9% 100 ML IV SCH ×2 (09:20→20:49)
--- NOTE | 2021-10-02 09:20 | NUR ---
PT AGITATED AND TRYING TO GET OUT OF BED. PT ATTEMPTING TO REMOVE IV LINES. MEDICATION ADMINISTERED PER MD ORDER. ALL PO MEDS CRUSHED AND TAKEN WITH APPLE SAUCE
[2021-10-02] MEDS: PANTOPRAZOLE 40 MG TABEC PO SCH (09:21)
[2021-10-02] MEDS: THIAMINE 100 MG TAB PO SCH (09:21)
[2021-10-02] MEDS: FOLIC ACID 1 MG TAB PO SCH (09:21)
[2021-10-02] MEDS: OLANZapine 5 MG TAB PO SCH ×2 (09:21→20:50)
[2021-10-02] MEDS: QUEtiapine FUMARATE 100 MG TAB PO SCH ×3 (09:21→17:21)
[2021-10-02] MEDS: CYANOCOBALAMIN 100 MCG TAB PO SCH (09:21)
[2021-10-02] MEDS: DEXT 5% / NACL 0.45% 1,000 ML IV SCH ×2 (09:50→23:10)
--- NOTE | 2021-10-02 11:27 | NUR ---
PT RESTING IN BED, EYES CLOSED. PT IS CALM. COVERED PT WITH BLANKET.
--- NOTE | 2021-10-02 13:24 | NUR ---
PT ASLEEP IN BED. CALM. MEDICATION NOT GIVEN AT THIS TIME
[2021-10-02 16:00] VITALS: BP 119/70
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
--- NOTE | 2021-10-02 19:01 | NUR ---
ENDORSED PT TO LEATHER CRAFTSMAN NURSE. PT STABLE. NO S/S OF DISTRESS. CALL LIGHT IN REACH. ALL SAFETY MEASURES IN PLACE. IV RUNNING PER MD ORDER
[2021-10-02 20:00] VITALS: BP 131/68
--- NOTE | 2021-10-02 20:37 | NUR ---
PT SLEEPING COMFORTABLY ON RA W/ NO DISTRESS NOTED WILL CONTINUE TO MONITOR
[2021-10-02] MEDS: TEMAZEPAM 15 MG CAP PO PRN (20:50)
[2021-10-03] MEDS: GAUZE TP SCH ×2 (01:20→13:42)
[2021-10-03 05:51] LABS: BASOPHILS % (AUTO) 0.7 % (0.0-2.0); EOSINOPHILS # (AUTO) 0.4 K/uL (0-0.4); EOSINOPHILS % (AUTO) 6.3 % (0.0-4.0); HEMATOCRIT 36.7 % (36-52); HEMOGLOBIN 12.7 g/dL (12.0-18.0); LYMPHOCYTES % (AUTO) 32.1 % (20.5-51.1); MEAN CORPUSCULAR HEMOGLOBIN 30 pg (27-31); MEAN CORPUSCULAR HGB CONC 35 g/dL (33-37); MEAN CORPUSCULAR VOLUME 86.5 fL (80-94); MONOCYTES # (AUTO) 0.7 K/uL (0.8-1.0); MONOCYTES % (AUTO) 11.4 % (1.7-9.3); NEUTROPHILS # (AUTO) 3.1 K/uL (1.8-7.7); NEUTROPHILS % (AUTO) 49.5 % (42.2-75.2); PLATELET COUNT (AUTO) 336 K/uL (140-450); RED BLOOD CELL COUNT(AUTO) 4.25 MIL/uL (4.20-6.10); RED CELL DISTRIBUTION WIDTH 16.8 % (11.6-13.7); WHITE BLOOD COUNT (AUTO) 6.2 K/uL (4.8-10.8)
[2021-10-03 06:28] LABS: ANION GAP 9.3 (8-16); CARBON DIOXIDE 27.6 mmol/L (21-32); CREATININE 0.7 mg/dL (0.6-1.3); POTASSIUM 3.9 mmol/L (3.5-5.1)
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
[2021-10-03 08:00] VITALS: BP 141/93
[2021-10-03] MEDS: levETIRAcetam 500 MG in NACL 0.9% 100 ML IV SCH ×2 (09:00→21:05)
[2021-10-03] MEDS: OLANZapine 5 MG TAB PO SCH ×2 (09:53→21:00)
[2021-10-03] MEDS: FOLIC ACID 1 MG TAB PO SCH (09:53)
[2021-10-03] MEDS: QUEtiapine FUMARATE 100 MG TAB PO SCH ×3 (09:53→17:25)
[2021-10-03] MEDS: THIAMINE 100 MG TAB PO SCH (09:53)
[2021-10-03] MEDS: CYANOCOBALAMIN 100 MCG TAB PO SCH (09:53)
[2021-10-03] MEDS: PANTOPRAZOLE 40 MG TABEC PO SCH (09:54)
[2021-10-03] MEDS: DEXT 5% / NACL 0.45% 1,000 ML IV SCH (12:43)
[2021-10-03 16:00] VITALS: BP 150/90
--- NOTE | 2021-10-03 19:30 | NUR ---
RECEIVED REPORT FROM DAY SHIFT NURSE FOR CONTINUITY OF CARE. PATIENT IS A&O X 0-1. PATIENT IS ON ROOM AIR, BREATHING NORMALLY WITH SYMMETRICAL RISE AND FALL OF CHEST. IV IS A 22G LAC RUNNING D5 1/2NS AT 75. PATIENT IS SLEEPING. BED IS IN LOWEST POSITION, WHEELS LOCKED, CALL LIGHT IN REACH. WILL CONTINUE TO OBSERVE.
--- NOTE | 2021-10-03 19:41 | NUR ---
ENDORSE PATIENT TO PM SHIFT NURSE WHILE PATIENT REST IN BED, STABLE, D5 1/2NS INFUSING @75ML/HR VIA LAC PIV SITE. WRIST RESTRAINT IN PLACE.
[2021-10-03 20:00] VITALS: BP 115/71
--- NOTE | 2021-10-03 21:20 | NUR ---
GAVE KEPPRA AND 2100 MEDICATION AT 5. PATIENT WENT BACK TO SLEEP AFTER MEDICATION WAS GIVEN. BED IS IN LOWEST POSITION, WHEELS LOCKED, CALL LIGHT IN REACH. WILL CONTINUE TO OBSERVE.
--- NOTE | 2021-10-04 | NUR ---
LOOKED IN ON PATIENT. PATIENT WAS TRYING TO GET OUT OF BAD AND HAD THROWN HIS PILLOW ON TO THE GROUND. GOT PATIENT'S LEGS BACK INTO BED. PATIENT WAS NOT WET AND HAD NOT HAD A BM. PATIENT THEN SETTLED DOWN. WILL CONTINUE TO OBSERVE PATIENT.
[2021-10-04] MEDS: DEXT 5% / NACL 0.45% 1,000 ML IV SCH ×2 (01:50→06:22)
--- NOTE | 2021-10-04 02:00 | NUR ---
LOOKED IN ON PATIENT. PATIENT WAS SLEEPING. PATIENT HAD NOT VOIDED OR HAD BOWEL MOVEMENT. IVF WAS RUNNING D5 1/2NS 75/HR. BREATHING WAS NORMAL WITH SYMMETRICAL RISE AND FALL OF CHEST. BED WAS IN LOWEST POSITION, WHEELS LOCKED, CALL LIGHT IN PLACE. WILL CONTINUE TO OBSERVE.
--- NOTE | 2021-10-04 05:00 | NUR ---
CHANGED PATIENT. PATIENT HAD VOIDED, BUT NO BM. PATIENT WAS CHANGED AND GIVEN NEW BEDDING. PATIENT IS BREATHING NORMALLY WITH SYMMETRICAL RISE AND FALL OF CHEST. BED IS IN LOWEST POSITION WITH WHEELS LOCKED, AND CALL LIGHT IN REACH. WILL CONTINUE TO OBSERVE PATIENT.
--- NOTE | 2021-10-04 06:25 | NUR ---
HUNG NEW IV BAG FOR PATIENT. IV IS RUNNING D5 1/2NS AT 75. PATIENT IS SLEEPING. BREATHING IS NORMAL WITH SYMMETRICAL RISE AND FALL OF CHEST. WILL CONTINUE TO OBSERVE PATIENT.
--- NOTE | 2021-10-04 07:47 | NUR ---
ENDORSED CONTINUITY OF CARE TO DAY SHIFT. PATIENT IS STABLE.
[2021-10-04 08:00] VITALS: BP_SYST 145; BP_SYST 69; BP_DIAS 71; BP_DIAS 88
[2021-10-04] MEDS: levETIRAcetam 500 MG in NACL 0.9% 100 ML IV SCH ×2 (08:14→20:42)
[2021-10-04] MEDS: PANTOPRAZOLE 40 MG TABEC PO SCH (08:15)
[2021-10-04] MEDS: FOLIC ACID 1 MG TAB PO SCH (08:15)
[2021-10-04] MEDS: CYANOCOBALAMIN 100 MCG TAB PO SCH (08:16)
[2021-10-04] MEDS: QUEtiapine FUMARATE 100 MG TAB PO SCH ×3 (08:16→17:00)
[2021-10-04] MEDS: THIAMINE 100 MG TAB PO SCH (08:16)
[2021-10-04] MEDS: OLANZapine 5 MG TAB PO SCH ×2 (08:16→20:43)
[2021-10-04] MEDS: DIAZEPAM PFS 10 MG/2 ML SYR IVP PRN (09:57)
[2021-10-04 16:00] VITALS: BP 158/85
--- NOTE | 2021-10-04 19:44 | NUR ---
ENDORSE PATIENT TO PM SHIFT NURSE WHILE PATIENT REST IN BED, STABLE, PIV LAC 22G INFUSING D5 1/2NS @75ML/HR, SOFT RESTRAINT AT BILATERAL WRIST NEED RE-NEW DAILY D/T PATIENT PULLING MEDICATION AND OTHER TREATMENT LINE
--- NOTE | 2021-10-04 19:45 | NUR ---
RECEIVED PT FROM AM NURSE FOR CONTINUITY OF CARE. PT IS STABLE
--- NOTE | 2021-10-04 21:30 | NUR ---
ALL MEDICATIONS GIVEN AT THIS TIME,NO ADVERSE REACTIONS NOTED
--- NOTE | 2021-10-05 01:30 | NUR ---
CLEANED AND REPOSITIONED THE PATIENT ,TOLERATED WELL,NO S/SX OF DISTRESS NOTED
[2021-10-05] MEDS: TEMAZEPAM 15 MG CAP PO PRN (02:44)
[2021-10-05 04:00] VITALS: BP 129/68
[2021-10-05] MEDS: DEXT 5% / NACL 0.45% 1,000 ML IV SCH ×2 (05:27→17:50)
--- NOTE | 2021-10-05 06:20 | NUR ---
PATIENT IS AWAKE ,NO AGITATION NOTED,NO S/SX OF DISTRESS NOTED
[2021-10-05 08:00] VITALS: BP 121/62
[2021-10-05] MEDS ORDERED: THIAMINE 100 MG TAB PO SCH (09:00)
[2021-10-05] MEDS: levETIRAcetam 500 MG in NACL 0.9% 100 ML IV SCH ×2 (09:08→20:41)
--- NOTE | 2021-10-05 09:15 | NUR ---
RESTRAINST ORDER - RENEWED . WILL CONT. TO MONITOR
[2021-10-05] MEDS: PANTOPRAZOLE 40 MG TABEC PO SCH (09:19)
[2021-10-05] MEDS: QUEtiapine FUMARATE 100 MG TAB PO SCH ×3 (09:19→18:00)
[2021-10-05] MEDS: OLANZapine 5 MG TAB PO SCH ×2 (09:20→20:45)
[2021-10-05] MEDS: THIAMINE 100 MG TAB PO SCH (09:20)
[2021-10-05] MEDS: CYANOCOBALAMIN 100 MCG TAB PO SCH (09:21)
[2021-10-05] MEDS: FOLIC ACID 1 MG TAB PO SCH (10:00)
--- NOTE | 2021-10-05 12:00 | NUR ---
ROUNDS , NO S/SX OF ACUTE DISTRESS NOTED . WILL CONT. TO MONITOR .
[2021-10-05 16:00] VITALS: BP 125/66
--- NOTE | 2021-10-05 16:00 | NUR ---
ON RESTRAINST , NO S/SX OF ACUTE DISTRESS NOTED AT THHSI TIME .
--- NOTE | 2021-10-05 19:25 | NUR ---
RECEIVED PATIENT FROM AM NURSE FOR CONTINUITY OF CARE. PT IS STABLE
--- NOTE | 2021-10-06 01:00 | NUR ---
PATIENT ASLEEP,NO S/SX OF DISTRESS NOTED, ALL SAFETY MEASURES IN PLACE
[2021-10-06 04:00] VITALS: BP 142/89
--- NOTE | 2021-10-06 06:00 | NUR ---
NEW IV SITE ON RT FOREARM 22 G,INTACT AND PATENT. PATIENT ASLEEP, NO DISTRESS NOTED
[2021-10-06] MEDS: DEXT 5% / NACL 0.45% 1,000 ML IV SCH ×2 (07:10→17:31)
[2021-10-06 08:00] VITALS: BP 140/93
[2021-10-06] MEDS: FOLIC ACID 1 MG TAB PO SCH (08:44)
[2021-10-06] MEDS: levETIRAcetam 500 MG in NACL 0.9% 100 ML IV SCH ×2 (08:44→22:24)
[2021-10-06] MEDS: THIAMINE 100 MG TAB PO SCH (08:45)
[2021-10-06] MEDS: QUEtiapine FUMARATE 100 MG TAB PO SCH ×3 (08:45→17:00)
[2021-10-06] MEDS: PANTOPRAZOLE 40 MG TABEC PO SCH (08:45)
[2021-10-06] MEDS: CYANOCOBALAMIN 100 MCG TAB PO SCH (08:46)
[2021-10-06] MEDS: OLANZapine 5 MG TAB PO SCH ×2 (08:46→21:03)
--- NOTE | 2021-10-06 12:00 | NUR ---
FEEDING BY SECRETARY BOOKKEEPER
--- NOTE | 2021-10-06 14:38 | NUR ---
SUPPORT SPECIALIST ISA FOUND MEDICINES IN THE PT'S BAG , BUT NOT IN THE NAME OF THE PATIENT , ALSO W/ SCREW FINISHER MAP AND CHART . - PER PHARMACIST - WILL BRING TO PHARMACY TO DESTROY THE MEDS . MEDS ARE : OLANZAPINE /TABS , HYDROXYZINE HCL /TABS . THE SCREWDRIVER TAKEN BY SECURITY C/O JUAN PABLO MOSS
[2021-10-06 16:00] VITALS: BP 121/65
--- NOTE | 2021-10-06 16:47 | NUR ---
COVID19 ANTIGEN JOSSUE SPECIMEN SEND TO LAB . Addendum: 10/06/21 at 1648 by Leny Galeano RN THE WORD SEND IN THE ABOVE NURSE'S NOTE IS AN ERROR ENTRY , INSTEAD OF SENT - LINDA
--- NOTE | 2021-10-06 19:15 | NUR ---
RECD. RESTING IN BED SLEEPING COMFORTABLY BUT EASILY AROUSABLE. IV OF D5 0.45% NS INFUSING AT 75 ML/HR LEFT AC G22. ON SEIZURE PRECAUTION, SIDE RAILS UP WITH PADS, BED IN THE LOWEST POSITION, CALL LIGHT IN REACH. ON BILATERAL SOFT WRIST RESTRAINTS, PATIENT IS PULLING OUT IV LINES. WILL CONTINUE TO MONITOR TO ENSURE SAFETY. NO APPEARANCE OF PAIN OR DISCOMFORT NOTED 0/10.
--- NOTE | 2021-10-06 19:15 | NUR ---
ENDORSED - PT -STABLE , SLEEPING , AROUSABLE .
--- NOTE | 2021-10-06 20:00 | NUR ---
Patient's Plan of Care was discussed and reviewed with LUZ ELENA HART.
--- NOTE | 2021-10-06 21:03 | NUR ---
REPOSITIONED IN BED, SCHEDULED MEDICATION ADMINISTERED WITH APPLE SAUCE. TOLERATED WELL.
[2021-10-07] VITALS: BP 144/74
--- NOTE | 2021-10-07 | NUR ---
TRYING TO GET OUT OF BED. REORIENTED TO HOSPITAL SETTING.
--- NOTE | 2021-10-07 02:00 | NUR ---
CLEANSED AND DIAPER CHANGED WITH WEBFED OFFSET PRESS OPERATOR. REPOSITIONED IN BED FOR COMFORT.
--- NOTE | 2021-10-07 03:00 | NUR ---
TRYING TO GET OUT OF BED, WANTS CHOCOLATE DRINK. ASSISTED BACK TO BED, PUDDING GIVEN INSTEAD.
--- NOTE | 2021-10-07 05:00 | NUR ---
BEDDINGS WET AND PATIENT'S GOWN. TWO PERSONS ASSISTING TAKEN TO SIT ON THE CHAIR. BEDDINGS CHANGED AND PATIENT CLEANED. NEW GOWN PUT ON.
--- NOTE | 2021-10-07 07:00 | NUR ---
CONDITION REMAIN STABLE. STILL TRYING TO GET OUT OF BED. WILL ENDORSE TO AM SHIFT NURSE FOR CONTINUITY OF CARE.
[2021-10-07 08:00] VITALS: BP 136/84
[2021-10-07] MEDS: THIAMINE 100 MG TAB PO SCH (09:51)
[2021-10-07] MEDS: FOLIC ACID 1 MG TAB PO SCH (09:52)
[2021-10-07] MEDS: OLANZapine 5 MG TAB PO SCH ×2 (09:52→20:54)
[2021-10-07] MEDS: PANTOPRAZOLE 40 MG TABEC PO SCH (09:52)
[2021-10-07] MEDS: QUEtiapine FUMARATE 100 MG TAB PO SCH ×3 (09:52→18:26)
[2021-10-07] MEDS: levETIRAcetam 500 MG in NACL 0.9% 100 ML IV SCH ×2 (10:01→20:59)
[2021-10-07] MEDS: CYANOCOBALAMIN 100 MCG TAB PO SCH (10:24)
--- NOTE | 2021-10-07 14:41 | NUR ---
10/07/21 RD FOLLOW UP COMPLETED PLEASE REFER TO NUTRITION ASSESSMENT UNDER CARE ACTIVITY FOR ESTIMATED NUTRITIONAL NEEDS. 1. CONTINUE REGULAR PUREE DIET AND HEALTHSHAKES TID TOLERATED - PT NEEDS ASSISTANCE WITH FEEDINGS 2. RD WILL CONTINUE TO MONITOR PO INTAKE 3. RD TO FOLLOW-UP 7 DAYS, LOW RISK REVIEWED BY ENDEINA BELLAMY RD
--- NOTE | 2021-10-07 15:43 | NUR ---
DISCHARGE PLANNING SW FAXED PATIENT'S REFERRAL AND CLINICAL INFORMATION TO [facility] AT WITH COMPLETED CONFIRMATION AT ABOUT 15:46. SW/CM WILL FOLLOW UP NEEDED. Addendum: 10/07/21 at 1857 by Katia Carrillo DISCHARGE PLANNING SW CALLED [facility] AT SPOKE TO OCTAVIO IN ADMISSIONS AND REQUESTED FAX NUMBER AFTER DISCUSSING PATIENT'S REFERRAL. SW SEND CLINICAL INFORMATION TO THEIR SNF WITH COMPLETED CONFIRMATION AT ABOUT 16:10. SW/CM WILL FOLLOW UP NEEDED. SW CALL [facility] AT SPOKE TO ANGELA IN ADMISSIONS AND REQUESTED FAX NUMBER AFTER DISCUSSING PATIENT'S REFERRAL. SW SEND CLINICAL INFORMATION TO THEIR SNF WITH COMPLETED CONFIRMATION AT ABOUT 16:09. SW/CM WILL FOLLOW UP NEEDED. SW CALLED [facility] AT SPOKE TO ANGELA IN ADMISSIONS AND REQUESTED FAX NUMBER AFTER DISCUSSING PATIENT'S REFERRAL. SW SEND CLINICAL INFORMATION TO THEIR SNF WITH COMPLETED CONFIRMATION AT ABOUT 16:09. SW/CM WILL FOLLOW UP NEEDED. SW CALLED [facility] AT SPOKE TO STONEY IN ADMISSIONS AND REQUESTED FAX NUMBER AFTER DISCUSSING PATIENT'S REFERRAL. SW SEND CLINICAL INFORMATION TO THEIR SNF WITH COMPLETED CONFIRMATION AT ABOUT 15:55. SW/CM WILL FOLLOW UP NEEDED. SW CALLED [facility] SNF AT SPOKE TO ANGELA IN ADMISSIONS AND REQUESTED FAX NUMBER AFTER DISCUSSING PATIENT'S REFERRAL. SW SEND CLINICAL INFORMATION TO THEIR SNF WITH COMPLETED CONFIRMATION AT ABOUT 15:41. SW/CM WILL FOLLOW UP NEEDED. SW CALLED [facility] AT SPOKE TO BOZENA IN ADMISSIONS AND REQUESTED FAX NUMBER AFTER DISCUSSING PATIENT'S REFERRAL. SW SEND CLINICAL INFORMATION TO THEIR SNF WITH COMPLETED CONFIRMATION AT ABOUT 15:21. SW/CM WILL FOLLOW UP NEEDED.
[2021-10-07 16:00] VITALS: BP 134/68
--- NOTE | 2021-10-07 19:01 | NUR ---
RECEIVED SHIFT REPORT FROM TASHA RN, PATIENT WAS STABLE DURING SHIFT REPORT. PATIENT SOUTH AFRICAN SPEAKING ONLY WITH GERMAN COMPREHENSION AT TIMES. PATIENT CONTINUES ON BILATERAL SOFT WRIST RESTRAINTS BECAUSE FALL RISKS, NONCOMPLIANT TO CARE, COMBATIVE, AND SEIZURE. NO NOTED SEIZURE ACTIVITY AT THIS TIME. CHEST WAS RISING AND FALLING WITHOUT DISTRESS. NO NOTED S/S OF RESPIRATORY DISTRESS. BED AT THE LOWEST LEVEL. SIDE RAILS UP X 3 FOR SAFETY AND COMFORT WITH BED ALARMS. CALL LIGHT WITHIN REACH FOR MENTAL STIMULATION. NURSING WILL FREQUENT THE ROOM FOR ANTICIPATED ASSISTANCE.... [email or web address]
[2021-10-07] MEDS: SODIUM CHLORIDE FLUSH 10 ML SYR IVF SCH (19:30)
[2021-10-07 20:00] VITALS: BP 139/75
--- NOTE | 2021-10-07 20:00 | NUR ---
REVIEWED PLAN OF CARE WITH SUSHILA NICOLEN [email or web address]
--- NOTE | 2021-10-07 21:50 | NUR ---
PATIENT NOTED IN BED AWAKE AFTER TAKING EVENING MEDICATION. PATIENT TOLERATED MEDICATIONS WELL WITHOUT INCIDENT. PATIENT WAS ADJUSTED IN BED FOR SLEEP AND COMFORT. SOFT RESTRAINTS WERE OBSERVED FOR CIRCULATION, BREAKS AND SAFETY. NO NOTED S/S OF PAIN/DISCOMFORT. NO NOTED S/S OF RESPIRATORY DISTRESS. [email or web address]
[2021-10-07] MEDS: DIAZEPAM PFS 10 MG/2 ML SYR IVP PRN (23:08)
--- NOTE | 2021-10-07 23:23 | NUR ---
PATIENT WAS GIVEN A VALUIM PRN BY COVERING NURSE BECAUSE HE IS KICKING AT STAFF, ATTEMPTING TO GET OUT OF RESTRAINTS TO GO TO [place]. NURSING WAS ABLE TO GET PATIENT TO STOP YELLING AND KICK ENOUGH FOR MEDICATION TO BE GIVEN. PATIENT HAS THROWN LINEN HE WAS ABLE TO REACH ON TO THE FLOOR NEW LINEN WAS GIVEN. PATIENT WAS ADJUSTED AND KEPT COMFORTABLE. SIDE RAILS UP X 4 FOR SEIZURE AND SAFETY. NURSING WILL FREQUENT ROOM FOR ANTICIPATED NEEDS. [email or web address]
--- NOTE | 2021-10-08 01:31 | NUR ---
PATIENT NOTED AWAKE IN BED. STILL ATTEMPTING TO SIT UP AND GET OUT OF BED. SIDE RAILS UP X 4 PADDED FOR SEIZURE PRECAUTION. CALL LIGHT WITHIN REACH FOR ASSISTANCE BUT NURSING WILL FREQUENT THE ROOM FOR ANTICIPATED ASSISTANCE. BED TO THE LOWEST LEVEL NO NOTED S/S OF PAIN. NO NOTED S/S OF RESPIRATORY DISTRESS. NURSING WILL CONTINUE TO MONITOR DURING THE REST OF THE SHIFT. [email or web address]
--- NOTE | 2021-10-08 03:45 | NUR ---
PATIENT REMAINS AWAKE. CONTINUES TO TRY TO GET OUT OF THE BED. NURSING HAS RELEASE FOR 15 MINUTES STAND BY TO PREVENT RIPPING OUT IV AND GETTIN OUT OF THE BED TO FALL DOWN TO INJURE HIMSELF. PATIENT KEPT CLEAN AND DRY. SIDE RAILS UP X 4 PADDED. NO NOTED SEIZURE ACTIVITIES. NO S/S OF PAIN/DISCOMFORT. NO S/S OF RESPIRATORY FAILURE. CALL LIGHT IN REACH FOR MENTAL STIMULATION FROM THE TV. NURSING WILL FREQUENT THIS ROOM FOR ANTICIPATED NEEDS AND SAFETY CHECKS. [email or web address]
[2021-10-08 04:00] VITALS: BP 135/60
--- NOTE | 2021-10-08 05:25 | NUR ---
1050 AM FOR RENEWAL OR RESTRAINTS ON PATIENT. PATIENT WAS CHANGED AND KEPT CLEAN. NO S/S OF PAIN. NO S/S OR RESPIRATORY. SIDE RAILS UP X 3 FOR COMFORT. CALL LIGHT WITHIN REACH. [email or web address]
[2021-10-08] MEDS: SODIUM CHLORIDE FLUSH 10 ML SYR IVF SCH ×2 (07:30→18:45)
[2021-10-08 08:00] VITALS: BP 123/73
[2021-10-08] MEDS: FOLIC ACID 1 MG TAB PO SCH (10:37)
[2021-10-08] MEDS: QUEtiapine FUMARATE 100 MG TAB PO SCH ×3 (10:38→15:15)
[2021-10-08] MEDS: OLANZapine 5 MG TAB PO SCH ×2 (10:39→20:02)
[2021-10-08] MEDS: THIAMINE 100 MG TAB PO SCH (10:39)
[2021-10-08] MEDS: PANTOPRAZOLE 40 MG TABEC PO SCH (10:42)
[2021-10-08] MEDS: levETIRAcetam 500 MG in NACL 0.9% 100 ML IV SCH ×2 (10:43→20:02)
[2021-10-08] MEDS: CYANOCOBALAMIN 100 MCG TAB PO SCH (11:44)
[2021-10-08 16:00] VITALS: BP 123/73
--- NOTE | 2021-10-08 17:14 | NUR ---
P.T. NOTES ATTEMPTED P.T. TX MULT TIMES, Pt TENDS TO BE PHYSICALLY AGGRESSIVE, UNPREDICTABLE, RESTLESS, DEMO DEC SAFETY AWARENESS, UNABLE TO FF SIMPLE COMMANDS; HOLD P.T. TX AT THIS TIME; BED ALARM, B SOFT WRIST RESTRAINTS, ON ROOM AIR; FF UP WHEN PARTICIPATIVE.
--- NOTE | 2021-10-08 19:15 | NUR ---
PATIENT IS AWAKE, CONFUSED. NO S/SX OF PAIN NOR DISCOMFORT. NO ACUTE RESPIRATORY DISTRESS NOTED. SKIN WARM AND DRY TO TOUCH. BED IN THE LOWEST AND LOCKED POSITION FOR SAFETY. CALL LIGHT IN REACH. RESTRAINTS ON FOR SAFETY, CHECHED FOR CIRCULATION, SKIN INTACT, PROVIDED WATER, PT INCONTINENT OF URINE.
--- NOTE | 2021-10-08 19:45 | NUR ---
INCONTINENT OF URINE, PERINEAL CARE RENDERED. MADE COMFOETABLE IN BED.
[2021-10-08] MEDS: DIAZEPAM PFS 10 MG/2 ML SYR IVP PRN (20:28)
--- NOTE | 2021-10-08 20:28 | NUR ---
PATIENT VERY CONFUSED, TRYING TO GET OUT OF BED, PRN MEDICATION GIVEN ORDERED.
--- NOTE | 2021-10-08 22:30 | NUR ---
PATIENT NO CALM AND ASLEEP. SAFETY PRECAUTION IN PLACE.
[2021-10-09] VITALS: BP 121/79
--- NOTE | 2021-10-09 00:13 | NUR ---
PATIENT ASLEEP. NO S/SX OF PAIN NOR DISCOMFORT. CALL LIGHT IN REACH.
--- NOTE | 2021-10-09 02:18 | NUR ---
PATIENT IS AWAKE, CALM AT THIS TIME. BREATHING EVEN AND UNLABORED.
--- NOTE | 2021-10-09 04:14 | NUR ---
PATIENT IS ASLEEP. NO ACUTE DISTRESS NOTED. CALL LIGHT IN REACH.
[2021-10-09] MEDS: DIAZEPAM PFS 10 MG/2 ML SYR IVP PRN (04:41)
[2021-10-09] MEDS: SODIUM CHLORIDE FLUSH 10 ML SYR IVF SCH ×2 (06:31→19:39)
--- NOTE | 2021-10-09 06:38 | NUR ---
ALL NEEDS ATTENDED TO. NO DISTRESS NOTED. SAFETY PRECAUTIONS MAINTAINED DURING THE SHIFT, CALL LIGHT REMAINED WITHIN REACH,
[2021-10-09] MEDS: CYANOCOBALAMIN 100 MCG TAB PO SCH (09:00)
[2021-10-09] MEDS: levETIRAcetam 500 MG in NACL 0.9% 100 ML IV SCH ×2 (09:35→20:15)
[2021-10-09] MEDS: QUEtiapine FUMARATE 100 MG TAB PO SCH ×3 (09:36→16:43)
[2021-10-09] MEDS: OLANZapine 5 MG TAB PO SCH ×2 (09:36→20:15)
[2021-10-09] MEDS: THIAMINE 100 MG TAB PO SCH (09:36)
[2021-10-09] MEDS: FOLIC ACID 1 MG TAB PO SCH (09:37)
[2021-10-09 13:46] VITALS: BP 125/75
--- NOTE | 2021-10-09 19:20 | NUR ---
[id number] REPORT FROM AM RN. PATIENT IS ASLEEP, OPENS EYES ON VERBAL STIMULI. NO S/SX OF PAIN NOR DISCOMFORT. NO ACUTE RESPIRATORY DISTRESS NOTED. SKIN WARM AND DRY TO TOUCH. BED IN THE LOWEST AND LOCKED POSITION FOR SAFETY, CALL LIGHT IN REACH.
--- NOTE | 2021-10-09 20:15 | NUR ---
DUE MEDICATIONS GIVEN ORDERED, TOLERATED WELL. PROVIDED VANILLA PUDDING.
--- NOTE | 2021-10-09 21:45 | NUR ---
INCONTINENT OF URINE, PERINEAL CARE RENDERED. MADE COMFORTABLE IN BED.
[2021-10-10] VITALS: BP 122/72
--- NOTE | 2021-10-10 01:28 | NUR ---
ROUNDING DONE. PATIENT ASLEEP. NO S/SX OF PAIN NOR DISCOMFORT.
--- NOTE | 2021-10-10 04:00 | NUR ---
INCONTINENT OF URINE, CLEANED PATIENT. MADE COMFORTABLE IN BED. SAFETY PRECAUTION IN PLACE, BED ALARM ON.
--- NOTE | 2021-10-10 06:27 | NUR ---
PATIENT IS AWAKE AND CONFUSED. RE-ORIENTATION DONE TO TIME, DATE AND PLACE. NO DISTRESS NOTED. ALL NEEDS ATTENDED TO. SAFETY PRECAUTIONS MAINTAINED DURING THE SHIFT, CALL LIGHT IN REACH.
[2021-10-10] MEDS: SODIUM CHLORIDE FLUSH 10 ML SYR IVF SCH ×2 (06:30→19:41)
[2021-10-10 08:00] VITALS: BP 114/77
[2021-10-10] MEDS: levETIRAcetam 500 MG in NACL 0.9% 100 ML IV SCH ×2 (11:32→20:19)
[2021-10-10] MEDS: FOLIC ACID 1 MG TAB PO SCH (11:32)
[2021-10-10] MEDS: THIAMINE 100 MG TAB PO SCH (11:32)
[2021-10-10] MEDS: QUEtiapine FUMARATE 100 MG TAB PO SCH ×3 (11:33→17:44)
[2021-10-10] MEDS: OLANZapine 5 MG TAB PO SCH ×2 (11:33→20:19)
[2021-10-10] MEDS: CYANOCOBALAMIN 100 MCG TAB PO SCH (11:35)
[2021-10-10 16:00] VITALS: BP 102/67
--- NOTE | 2021-10-10 19:39 | NUR ---
ENDORSE PATIENT TO PM SHIFT NURSE WITH STABLE CONDITION W/ NO ACUTE DISTRESS NOTED. PIV SALINE LOCK @ L FOREARM AND R. FOREARM
--- NOTE | 2021-10-10 19:45 | NUR ---
REPORT GIVEN BY AM RN. PATIENT IS CALM AND ASLEEP. NO S/SX OF PAIN NOR DISCOMFORT. NO RESPIRATORY DISTRESS NOTED. SAFETY PRECAUTIONS IN PLACE, CALL LIGHT IN REACH.
--- NOTE | 2021-10-10 21:00 | NUR ---
INCONTINENT OF URINE, PERINEAL CARE RENDERED. MADE COMFORTABLE IN BED. CALL LIGHT IN REACH.
--- NOTE | 2021-10-10 23:41 | NUR ---
PROVIDED PUDDING PER PATIENT'S REQUEST. HEAD OF THE BED ELEVATED.
[2021-10-11] VITALS: BP 119/59
--- NOTE | 2021-10-11 03:15 | NUR ---
INCONTINENT OF URINE, CLEANED PT. MADE COMFORTABLE IN BED.
--- NOTE | 2021-10-11 06:16 | NUR ---
PATIENT IS ASLEEP. ALL NEEDS ATTENDED TO. NO DISTRESS NOTED. SAFETY PRECAUTIONS MAINTAINED DURING THE SHIFT, CALL LIGHT REMAINED WITHIN REACH,
[2021-10-11] MEDS: SODIUM CHLORIDE FLUSH 10 ML SYR IVF SCH ×2 (06:32→19:30)
[2021-10-11 08:00] VITALS: BP 128/81
--- NOTE | 2021-10-11 08:10 | NUR ---
RECEIVE ENDORSEMENT FROM PM SHIFT NURSE WHILE YEHUDA IS STABLE CONDITION W/ NO ACUTE DISTRESS NOTED. PIV SALINE LOCK @ BOTH L. FOREARM AND R. FOREARM; WILL CONTINUE TO MONITOR
[2021-10-11] MEDS: levETIRAcetam 500 MG in NACL 0.9% 100 ML IV SCH ×2 (09:16→21:35)
[2021-10-11] MEDS: QUEtiapine FUMARATE 100 MG TAB PO SCH ×3 (09:21→17:00)
[2021-10-11] MEDS: THIAMINE 100 MG TAB PO SCH (09:21)
[2021-10-11] MEDS: FOLIC ACID 1 MG TAB PO SCH (09:21)
[2021-10-11] MEDS: OLANZapine 5 MG TAB PO SCH ×2 (09:22→20:43)
[2021-10-11] MEDS: CYANOCOBALAMIN 100 MCG TAB PO SCH (09:22)
--- NOTE | 2021-10-11 15:38 | NUR ---
AROUND 1320, STAFF NURSE REPORT THAT PATIENT IS FOUND ON THE FLOOR WITHOUT WRIST SOFT RESTRAINT. PATIENT'S IV ACCESS INTACT; NURSE DID BODY CHECK AND NO VISIBLE INJURY AT THIS TIME. DR. STRONG INFORMED AND REQUEST HEAD CT TO RULE OUT HEAD INJURY. WILL CONTINUE TO MONITOR.
[2021-10-11 16:00] VITALS: BP 106/59
--- NOTE | 2021-10-11 19:29 | NUR ---
ENDORSE PATIENT TO PM SHIFT NURSE WITH STABLE CONDITION W/ NO ACUTE DISTRESS NOTED. PIV SALINE LOCK @ BOTH L. FOREARM AND R. FOREARM
--- NOTE | 2021-10-11 19:30 | NUR ---
RECEIVED ENDORSEMENT FROM REMEDIOS CRANE, PATIENT WAS IN BED S/P FALL TODAY. RENEWAL ORDERS FOR RESTRAINTS WAS GIVEN. PATIENT CONFUSED STILL ATTEMPTING TO GET OUT OF THE BED. PATIENT SHOWS NO S/S OF PAIN/DISCOMFORT. PATIENT SHOWS NOT S/S OF RESPIRATORY DISTRESS. PATIENT WAS KEPT CLEAN AND DRY. NO NOTED SEIZURE ACTIVITY. SIDE RAILS PADDED X 4 FOR SEIZURE AND SAFETY. CALL LIGHT IN BED BY HIS HEAD TO ENJOY TV ENTERTAINMENT. NURSING WILL FREQUENT THE ROOM FOR RELEASE OF RESTRAINTS FOR CIRCULATION AND ADLS. [email or web address]
[2021-10-11 20:00] VITALS: BP 122/76
--- NOTE | 2021-10-11 21:40 | NUR ---
PATIENT WAS CHANGED AND TEMPORARILY RELEASED FROM RESTRAINT. PATIENT WAS CONFUSED. PATIENT WAS KEPT CLEAN AND DRY.RIGHT FOREARM IV WAS INFILTRATED AND REMOVED. LEFT FOREARM IS STILL INTACT AND PATENT. SIDE RAILS PADDED AND UP X 4. CALL LIGHT FOR MENTAL STIMULATION. BED ALARM IS ON AND WORKING. [email or web address]
[2021-10-11] MEDS: DIAZEPAM PFS 10 MG/2 ML SYR IVP PRN (21:43)
--- NOTE | 2021-10-11 23:15 | NUR ---
PATIENT AWAKE IN BED STILL ATTEMPTING TO GET OUT OF BED. NURSING ADJUSTED RESTRAINTS TO MOVE EASY TO REPOSITIONED, THEN PLACED BACK TO SAFETY LEVEL. BED AT THE LOWEST LEVEL. NO NOTED S/S OF PAIN/DISCOMFORT. NO NOTED RESPIRATORY DISTRESS. NO NOTED SEIZURE ACTIVITY AT THIS TIME. NURSING WILL FREQUENT THIS ROOM FOR ANTICIPATED NEEDS AND SAFETY. [email or web address]
--- NOTE | 2021-10-12 00:22 | NUR ---
AFTAB IN CT REQUESTED THAT THE CT SCAN FOR PATIENT GET COMPLETED TOMORROW BECAUSE HE HAS NO SUPPORT WITH THE SCAN. THIS WILL BE ENDORSED TO THE AM SHIFT NURSE. [email or web address]
--- NOTE | 2021-10-12 01:01 | NUR ---
PATIENT IS IN HIGH [place] POSITION. NOT SLEEPING. COVERING NURSE WAS ASKED TO GIVE PRN. NO NOTED PAIN/DISCOMFORT. NO NOTED RESPIRATORY DISTRESS. PATIENT CONTINUES ON RESTRAINTS AND EVERY 15 MINUTES OF RELIEF. SIDE RAILS UP X 4. NURSING WILL FREQUENT THE ROOM FOR ANTICIPATED NEEDSL [email or web address]
--- NOTE | 2021-10-12 03:43 | NUR ---
PATIENT STILL CONFUSED AND TRYING TO GET OUT OF HIS BED. PATIENT IS VERBALLY ARGUMENTATIVE BECAUSE HE WANT TO BED OUT OF THE BED. NO S/S OF PAIN/DISCOMFORT. NO NOTED S/S OF DISTRESS. PATIENT WAS KEPT CLEAN AND DRY. NURSING REMAINS CLOSE TO THE ROOM TO ENSURE NO HARM BY FALLING OUT OF THE BED OR GETTING OUT OF HIS RESTRAINTS CAUSING MORE INJURIES. [email or web address]
[2021-10-12 04:00] VITALS: BP 134/81
--- NOTE | 2021-10-12 05:47 | NUR ---
PATIENT WAS WASHED AND CHANGED. NEW LINEN FOR HIS BED. RELEASED EVERY 15 OF FOR ADL'S AND CIRCULATION. PATIENT CONTINUES TO TALK BUT NO NOTED COHERENT. PATIENT CONTINUES TO SOFT WRIST RESTRAINS AT 1948. CT SCAN DEPARTMENT WAS NOT ABLE TO DO THE SCAN WILL ENDORSE TO AM SHIFT. PATIENT CONTINUES TO TRY TO GET OUT OF BED. NURSING MONITOR HANDS AND CIRCULATION INTACT. SIDE RAILS UP X 4. CALL LIGHT BY HEAD FOR MENTAL STIMULATION. NURSING WILL CONTINUE TO MONITOR FOR ANTICIPATED NEEDS. [email or web address]
--- NOTE | 2021-10-12 07:10 | NUR ---
RECEIVED REPORT FROM NIGHTSHIFT NURSE UCHE FOR CONTINUITY OF CARE. PT IS CURRENTLY AWAKE, A/OX2, AND SPEAKING SLURRED, GARBLED SAO TOMEAN AND HEBREW. PT IS BREATHING EVEN, REGULAR, AND UNLABORED ON ROOM AIR. PT IS INCONTINENT OF THE BOWEL AND BLADDER WITH DIAPER IN PLACE. SKIN IS INTACT, WITH SCARRING ON FOREHEAD NOTED. PER NIGHTSHIFT NURSE, PT HAD A FALL YESTERDAY AND IS AWAITING CT W/O CONTRAST. PT FLACC 0 AT THIS TIME. 2-POINT SOFT WRIST RESTRAINTS IN PLACE, ORDER RENEWED 10/11/21 AT 19:47. SKIN UNDERNEATH RESTRAINTS CLEAN, DRY, AND INTACT. IV ON LEFT FOREARM INFILTRATED. IV REMOVED AND SITE DRESSED. NEW 20G ON RIGHT FOREARM INSERTED. PT TOLERATED WELL.
--- NOTE | 2021-10-12 07:10 | NUR ---
ENDORSED PATIENT TO NAZ CRANE FOR CONTINUITY OF CARE, PATIENT WAS STABLE DURING THE CHANGE OF SHIFT. [email or web address]
[2021-10-12] MEDS: SODIUM CHLORIDE FLUSH 10 ML SYR IVF SCH ×2 (07:30→19:42)
--- NOTE | 2021-10-12 08:30 | NUR ---
PT TAKEN TO CT BY TECH VIA BED. PT CURRENTLY SLEEPING, NO SIGNS OF DISTRESS NOTED AT THIS TIME.
--- NOTE | 2021-10-12 09:50 | NUR ---
PT RETURNED FROM CT AWAKE, REORIENTED PT TO PLACE AND SITUATION. PT WAS ABLE TO TAKE ALL PO MEDICATIONS WITHOUT ISSUE SWALLOWING.
[2021-10-12] MEDS: CYANOCOBALAMIN 100 MCG TAB PO SCH (09:59)
[2021-10-12] MEDS: FOLIC ACID 1 MG TAB PO SCH (10:00)
[2021-10-12] MEDS: QUEtiapine FUMARATE 100 MG TAB PO SCH ×3 (10:00→16:27)
[2021-10-12] MEDS: OLANZapine 5 MG TAB PO SCH ×2 (10:00→23:38)
[2021-10-12] MEDS: THIAMINE 100 MG TAB PO SCH (10:00)
[2021-10-12] MEDS: levETIRAcetam 500 MG in NACL 0.9% 100 ML IV SCH ×2 (10:01→22:54)
--- NOTE | 2021-10-12 10:30 | NUR ---
SKIN UNDERNEATH SOFT WRISTS DRY AND INTACT, EXTREMITIES CIRCULATION INTACT. PT CONFUSED BUT FOCUSED ON TV AT THIS TIME
--- NOTE | 2021-10-12 13:25 | NUR ---
10/12/21 RD FOLLOW UP COMPLETED PLEASE REFER TO NUTRITION ASSESSMENT UNDER CARE ACTIVITY FOR ESTIMATED NUTRITIONAL NEEDS. 1. CONTINUE PUREE DIET AND HEALTHSHAKES TID TOLERATED -PT NEEDS ASSISTANCE WITH FEEDINGS 2. RD WILL CONTINUE TO MONITOR PO INTAKE 3. RD TO FOLLOW-UP 7 DAYS, LOW RISK REVIEWED BY RENETTA SPENCER RD
[2021-10-12] MEDS: DIAZEPAM PFS 10 MG/2 ML SYR IVP PRN ×2 (14:20→23:47)
--- NOTE | 2021-10-12 14:20 | NUR ---
PT WAS FOUND SITTING UP ON THE SIDE OF THE BED WITH ONE WRIST RESTRAINT REMOVED. ASSISTED BY LUZ ELENA DAVIS AND KULDEEP BLUNT TO PUT PT BACK IN BED. PT BEGAN KICKING AT STAFF, AND SCRATCHING WHILE ATTEMPTING TO FIX SOFT WRIST RESTRAINT. PRN VALIUM GIVEN IV PUSH, PT STILL SEVERELY AGITATED AND SCREAMING FOR AN AMBULANCE AND POLICE. PT REORIENTATED, BUT DID NOT RESPOND APPROPRIATELY. PT REPOSITIONED BACK IN BED SUPINE, READJUSTED WRIST RESTRAINTS, SKIN UNDERNEATH DRY AND INTACT.
--- NOTE | 2021-10-12 15:04 | NUR ---
PT FOUND AT THE BEDSIDE WITH ONE WRIST RESTRAINT REMOVED AND ATTEMPTING TO STAND. ATTEMPTED TO REORIENT PT, PT RESPONDED WITH CONFUSED RANDOM GIBBERISH. PT REPOSITIONED ON BED ASSISTED BY ROSA MARIA PEDERSON, LUZ ELENA DAVIS AND KULDEEP WOODARD. PT KICKED ROSA MARIA PEDERSON ON CHIN WHILE ATTEMPTING TO ASSIST, READJUSTED SOFT WRIST RESTRAINTS. PT ONCE AGAIN DID NOT RESPOND APPROPRIATELY TO VERBAL REORIENTATION. PT STILL SEVERELY CONFUSED AND AGITATED. NOTIFIED DR. STRONG TO ADVISE FOR FURTHER CARE. AWAITING CALLBACK.
[2021-10-12 16:00] VITALS: BP 140/86
[2021-10-12] MEDS ORDERED: QUEtiapine FUMARATE 25 MG TAB PO SCH (16:15)
--- NOTE | 2021-10-12 16:28 | NUR ---
DR. STRONG GAVE NEW ORDERS FOR AN ADDITIONAL 25MG OF SEROQUEL ONE TIME. PT WAS ABLE TO CALM DOWN ENOUGH TO TAKE MEDICATIONS CRUSHED IN APPLESAUCE. PT CURRENTLY STOPPED KICKING, STILL CONFUSED BUT NOT AGITATED. REASSESSED RESTRAINTS AND SKIN UNDERNEATH WAS DRY AND INTACT.
--- NOTE | 2021-10-12 17:53 | NUR ---
DISCHARGE PLANNING STEVE CALLED [facility] AT SPOKE TO OCTAVIO IN ADMISSIONS IN REGARDS TO PATIENT REFERRAL SEND. STEVE REQUESTED A FOLLOW UP RESPONSE TO REFERRAL. PER OCTAVIO SHE HAS NO BEDS AT THIS TIME AND REQUESTED FOR SPECIAL EDUCATION BUS DRIVER TO SEND UPDATED NOTES FOR PATIENT. REPORTED THAT IF A OPENING COMES SHE WILL CALL AND INFORM CM OR SW. STEVE ENDED THE CALL AND RE-FAXED PATIENT REFERRAL TO WITH COMPLETED COMPLETION AT ABOUT 18:00. Addendum: 10/12/21 at 1814 by Katia ALVAREZ STEVE CALLED [facility] AT SPOKE TO ANGELA IN ADMISSIONS, SPOKE TO OCTAVIO IN REGARDS TO PATIENT REFERRAL SEND. STEVE REQUESTED A FOLLOW UP RESPONSE TO REFERRAL. PER ANGELA PATIENT WAS DECLINED DUE TO LACK OF DC PLAN. AND REPORTED THAT THEY DO NOT HAVE A [facility]DC BED AT THIS TIME STEVE THANKED HER FOR HER INFORMATION AND ENDED THE CALL. Addendum: 10/12/21 at 1823 by Katia ALVAREZ STEVE CALLED [facility] SN[facility] AT SPOKE TO STONEY IN ADMISSIONS AND REQUESTED A FOLLOW UP RESPONSE TO REFERRAL SENT BY THESE SPECIAL EDUCATION BUS DRIVER. PER STONE[place] PATIENT WAS DECLINED DUE TO LACK OF DC PLAN. AND REPORTED THEIR FACILITY DO NOT HAVE A FDC BED AT THIS TIME. STEVE THANKED HIM FOR THE INFORMATION AND ENDED THE CALL. CM WILL FOLLOW UP WITH INSURANCE ABOUT FOLLOWING REFERRAL TO DIFFICULT PLACEMENTS DEPARTMENT PER [facility] [employer]. Addendum: 10/12/21 at 2707 by Katia Carrillo DISCHARGE PLANNING: STEVE CALLED [facility] AT SPOKE TO LINDA IN ADMISSIONS REQUESTING A FOLLOW UP RESPONSE TO REFERRAL SENT BY THESE SPECIAL EDUCATION BUS DRIVER. PER LINDA; PATIENT WAS DECLINED DUE TO LACK OF DC PLAN. AND REPORTED THEIR FACILITY DO NOT HAVE A FDC BED AT THIS TIME. STEVE THANKED HER FOR THE INFORMATION AND ENDED THE CALL. CM WILL FOLLOW UP WITH INSURANCE ABOUT FOLLOWING REFERRAL TO DIFFICULT PLACEMENTS DEPARTMENT PER [facility] [employer]. Addendum: 10/12/21 at 1831 by Katia Carrillo STEVE CALLED [facility] AT TO FOLLOW UP WITH BOZENA IN ADMISSIONS DEPARTMENT AND REQUESTED A FOLLOW UP ABOUT PATIENT'S REFERRAL. BOZENA WAS NOT IN SHE HAS LEFT FOR THE DAY AND SW LEFT HER A VOICE MAIL MSG REQUESTING A CALL TO DIRECT NUMBER LEFT IN HER MSG. STEVE WILL FOLLOW UP NEEDED. Addendum: 10/13/21 at 1206 by Katia Carrillo DISCHARGE PLANNING STEVE CALLED [facility] AT TO FOLLOW UP WITH BOZENA IN ADMISSIONS DEPARTMENT AND REQUESTED A FOLLOW UP ABOUT PATIENT'S REFERRAL. BOZENA STATED THAT SHE DID NOT HAVE ANY BEDS AT THIS TIME; THEREFORE, THE REFERRAL WAS DECLINED. STEVE THANKED HER FOR THE INFORMATION AND ENDED THE CALL. Addendum: 10/13/21 at 1211 by Katia Carrillo DISCHARGE PLANNING STEVE CALLED [facility] AT SPOKE TO KETURAH IN ADMISSIONS, IN REGARDS TO PATIENT'S FOLLOW UP WITH REFERRAL SENT. PER KETURAH PATIENT WAS DECLINED DUE TO LACK OF DC PLAN. AND REPORTED THAT THEY DO NOT HAVE A FDC BED AT THIS TIME STEVE THANKED HER FOR HER INFORMATION AND ENDED THE CALL.
--- NOTE | 2021-10-12 18:50 | NUR ---
PAGED DR. STRONG FOR RENEWAL OF RESTRAINTS ORDER PT IS STILL SEVERELY CONFUSED AND AT HIGH RISK OF INJURING HISSELF. AWAITING CALLBACK.
--- NOTE | 2021-10-12 19:27 | NUR ---
ENDORSED PT TO NIGHTSHIFT NURSE TANNER FOR CONTINUITY OF CARE. PT IN STABLE CONDITION.
--- NOTE | 2021-10-12 19:28 | NUR ---
RECD. RESTING IN BED, AWAKE, A/OX1, CONFUSED. NO IV LINE. PATIENT ON BILATERAL SOFT WRIST RESTRAINTS. REORIENTED TO HOSPITAL SETTING. SAFETY MEASURES ENFORCED. BED IN THE LOWEST POSITION, SIDE RAILS UP WITH PADS. BED ON ALARM. NO APPEARANCE OF PAIN OR DISCOMFORT NOTED, 0/10.
--- NOTE | 2021-10-12 19:45 | NUR ---
RESTRAINTS ORDER RENEWED PER DR. CAGLE ORDER.
--- NOTE | 2021-10-12 20:00 | NUR ---
Patient's Plan of Care was discussed and reviewed with LUZ ELENA: TANNER
--- NOTE | 2021-10-12 22:45 | NUR ---
NEW IV LINE INSERTED AT THE RIGHT FOREARM G22. PATIENT RESISTING, PINCHED NURSE HAND WHILE PUTTING NEW IV LINE.
--- NOTE | 2021-10-12 23:45 | NUR ---
TRYING TO PULL OUT IV LINE, BLOOD COMES OUT OF THE IV TUBINGS. REORIENTED TO HOSPITAL SETTING. DISCONNECT PATIENT FROM IV MACHINE.
--- NOTE | 2021-10-12 23:47 | NUR ---
WITH ANXIETY, RESTLESSNESS. MEDICATED WITH VALIUM PER MD ORDER BY ROSA MARIA KINCAID.
[2021-10-13] VITALS: BP 130/98
--- NOTE | 2021-10-13 00:47 | NUR ---
STILL WITH RESTLESSNESS. REORIENTED TO HOSPITAL SETTING. UNABLE TO COMPREHEND.
--- NOTE | 2021-10-13 03:00 | NUR ---
ABLE TO GET OFF RESTRAINTS AND GET OUT OF BED. ASSISTED BACK TO BED. SAFETY MAINTAINED.
[2021-10-13 04:00] VITALS: BP 130/83
[2021-10-13] MEDS: SODIUM CHLORIDE FLUSH 10 ML SYR IVF SCH ×2 (06:33→21:48)
--- NOTE | 2021-10-13 07:35 | NUR ---
CONDITION REMAIN STABLE. ENDORSED TO AM SHIFT NURSE FOR CONTINUITY OF CARE.
--- NOTE | 2021-10-13 07:36 | NUR ---
RECEIVED REPORT FROM RESIDENCY COORDINATOR NURSE FOR CONTINUITY OF CARE. PATIENT LYING DOWN IN BED, SLEEPING, AROUSABLE BY TOUCH. SOFT WRIST RESTRAINTS ON PATIENT. IV SITE INTACT, PATENT, ON SALINE LOCK. AAOX1, CONFUSED. REVIEWED PLAN OF CARE WITH PATIENT. UNABLE TO COMPREHEND. SAFETY MEASURES IN PLACE, CALL LIGHT WITHIN REACH. WILL CONTINUE TO MONITOR.
[2021-10-13 08:00] VITALS: BP 139/85
[2021-10-13] MEDS: OLANZapine 5 MG TAB PO SCH ×2 (09:34→21:49)
[2021-10-13] MEDS: CYANOCOBALAMIN 100 MCG TAB PO SCH (09:35)
[2021-10-13] MEDS: levETIRAcetam 500 MG in NACL 0.9% 100 ML IV SCH ×2 (09:35→21:49)
[2021-10-13] MEDS: QUEtiapine FUMARATE 100 MG TAB PO SCH ×3 (09:35→17:07)
[2021-10-13] MEDS: THIAMINE 100 MG TAB PO SCH (09:35)
[2021-10-13] MEDS: FOLIC ACID 1 MG TAB PO SCH (09:35)
--- NOTE | 2021-10-13 09:35 | NUR ---
SCHEDULED MEDICATIONS DUE GIVEN. WILL CONTINUE TO MONITOR.
[2021-10-13 16:00] VITALS: BP 110/74
--- NOTE | 2021-10-13 19:30 | NUR ---
RECEIVED REPORT FROM DAY SHIFT NURSE GILDA. PATIENT IS A&O X1, PATIENT IS CURRENTLY SLEEPING. PATIENT IS ON ROOM AIR, BREATHING IS NORMAL WITH SYMMETRICAL RISE AND FALL OF CHEST. PATIENT'S IV IS A 22G RFA, PATIENT IS RUNNING NO FLUIDS AT THIS TIME (SALINE LOCKED). BED IS IN LOWEST POSITION, WHEELS LOCKED, CALL LIGHT IN PLACE. WILL CONTINUE TO OBSERVE PATIENT. Addendum: 10/13/21 at 2000 by Romero Osorio RN CORRECTION. REPORT WAS GIVEN BY NURSE KNIGHT.
--- NOTE | 2021-10-13 19:40 | NUR ---
REMOVED PATIENT'S RESTRAINTS. PATIENT IS SLEEPING. BREATHING IS NORMAL WITH SYMMETRICAL RISE AND FALL OF CHEST. BED IS IN LOWEST POSITION, WHEELS LOCKED, CALL LIGHT IN PLACE. WILL CONTINUE TO OBSERVE PATIENT.
[2021-10-13 20:00] VITALS: BP 106/73
--- NOTE | 2021-10-13 20:30 | NUR ---
AMBULATED PATIENT TO BATHROOM. PATIENT WAS SOMEWHAT COOPERATIVE, PERIODICALLY YELLING NOT TO TOUCH HIM. WALKED ALONGSIDE PATIENT READY TO AID PATIENT IF NEEDED. PATIENT WAS ABLE TO USE THE BATHROOM INDEPENDENTLY AND WAS ABLE TO AMBULATE BACK TO BED WITH ASSISTANCE. PATIENT LAID DOWN AND STARTED TO GO TO SLEEP. BREATHING IS NORMAL WITH SYMMETRICAL RISE AND FALL OF CHEST. BED IS IN LOWEST POSITION, WHEELS LOCKED, CALL LIGHT IN PLACE. WILL CONTINUE TO OBSERVE PATIENT.
[2021-10-13] MEDS ORDERED: CRUSHER, PILL MC ONE (21:31)
--- NOTE | 2021-10-13 22:23 | NUR ---
OBTAINED PILL COMMUNICATIONS EXECUTIVE FOR PATIENT. PATIENT IS ON PUREE DIET.
--- NOTE | 2021-10-13 22:25 | NUR ---
ADMINISTERED 2100 MEDICATIONS TO PATIENT. PATIENT TOLERATED MEDICATION WELL. PATIENT FELL BACK TO SLEEP AFTER RECEIVING MEDICATION. PLACED CHUCKS DIAPER ON PATIENT. PATIENT WAS NOT COOPERATIVE DURING PROCESS AND IT TOOK TIME, BUT FINALLY WAS ABLE TO GET CHUCKS DIAPER ON PATIENT. PATIENT IS SLEEPING, BREATHING IS NORMAL WITH SYMMETRICAL RISE AND FALL OF CHEST. BED IS IN LOWEST POSITION, WHEELS LOCKED, CALL LIGHT IN PLACE. WILL CONTINUE TO OBSERVE PATIENT.
--- NOTE | 2021-10-13 22:25 | NUR ---
PATIENT RECEIVED NEW CHUCKS DIAPER BECAUSE OTHER DIAPER WAS WET. UPON PUTTING NEW DIAPER ON, DANGELO CARE WAS PROVIDED, PATIENT WAS NOT COOPERATIVE DURING DANGELO CARE.
--- NOTE | 2021-10-14 | NUR ---
PATIENT IS ASLEEP. BREATHING IS NORMAL WITH SYMMETRICAL RISE AND FALL OF CHEST. BED IS IN LOWEST POSITION, WHEELS LOCKED, CALL LIGHT IN PLACE. WILL CONTINUE TO OBSERVE.
--- NOTE | 2021-10-14 02:10 | NUR ---
PATIENT WOKE UP AROUND 0030. BEGAN ACTING AGITATED, TRYING TO GET OUT OF BED. PATIENT THEN BEGAN TAKING OFF DRESSING ON RIGHT ARM THAT WAS SECURING IV LINE. DRESSING WAS REINFORCED WITH NEW DRESSING AND TAPE; HOWEVER, PATIENT CONTINUED TO PULL OFF DRESSING. IT WAS DECIDED TO REMOVE DRESSING AND MONITOR IV SITE. DRESSING WAS REMOVED, PATIENT CONTINUED TO TRY AND GET OUT OF BED (HE WAS ENCOURAGED TO LAY BACK DOWN IN BED EACH TIME HE PUT HIS LEGS OUT OF BED), BUT EVENTUALLY BECAME TIRED AND FELL BACK TO SLEEP AROUND 0200. NO IVF RUNNING AT THIS TIME (SALINE LOCKED). PATIENT IS BREATHING NORMALLY, WHEELS LOCKED, CALL LIGHT IN PLACE. WILL CONTINUE TO OBSERVE PATIENT.
[2021-10-14 04:00] VITALS: BP 107/70
--- NOTE | 2021-10-14 04:00 | NUR ---
PATIENT IS STILL SLEEPING SOUNDLY. PATIENT IS LYING SUPINE, BREATHING IS NORMAL WITH SYMMETRICAL RISE AND FALL OF CHEST. BED IS IN LOWEST, WHEELS LOCKED, CALL LIGHT IN PLACE. WILL CONTINUE TO OBSERVE PATIENT.
--- NOTE | 2021-10-14 06:00 | NUR ---
PATIENT IS STILL SLEEPING, LYING SUPINE. NO IVF RUNNING AT THIS TIME (SALINE LOCKED) BREATHING IS NORMAL WITH SYMMETRICAL RISE AND FALL OF CHEST. BED IS IN LOWEST POSITION, WHEELS LOCKED, CALL LIGHT IN PLACE. WILL CONTINUE TO OBSERVE PATIENT.
--- NOTE | 2021-10-14 07:15 | NUR ---
ENDORSED TO DAY SHIFT NURSE GILDA FOR CONTINUITY OF CARE. PATIENT IS STABLE.
[2021-10-14] MEDS: SODIUM CHLORIDE FLUSH 10 ML SYR IVF SCH ×2 (07:48→20:00)
[2021-10-14 08:00] VITALS: BP 116/75
[2021-10-14] MEDS: THIAMINE 100 MG TAB PO SCH (08:52)
[2021-10-14] MEDS: QUEtiapine FUMARATE 100 MG TAB PO SCH ×3 (08:52→16:57)
[2021-10-14] MEDS: levETIRAcetam 500 MG in NACL 0.9% 100 ML IV SCH ×2 (08:52→20:29)
[2021-10-14] MEDS: OLANZapine 5 MG TAB PO SCH ×2 (08:52→20:18)
[2021-10-14] MEDS: CYANOCOBALAMIN 100 MCG TAB PO SCH (08:55)
[2021-10-14] MEDS: FOLIC ACID 1 MG TAB PO SCH (08:55)
--- NOTE | 2021-10-14 09:52 | NUR ---
PATIENT TOLERATED CRUSHED MEDICATIONS IN HIS APPLESAUCE, ATE 100% OF BREAKFAST, GIVEN A BED BATH, COMPLETE LINEN CHANGE, REPOSITIONED, COOPERATIVE, SAFETY MEASURES MAINTAINED, CALL LIGHT WITHIN REACH, WILL CONTINUE TO MONITOR.
[2021-10-14] MEDS: HALOPERIDOL IM 5 MG/ML VIAL IM PRN (14:49)
--- NOTE | 2021-10-14 15:00 | NUR ---
PT HAS BECOME SEVERELY AGITATED, KICKING, AND SWINGING HIS ARMS, TRYING TO GET OUT OF BED, REDIRECTION WAS USED, BUT PT WOULD NOT CALM DOWN, PRN HALDOL GIVEN. PT RESTING COMFORTABLY IN BED NOW, SAFETY MEASURES MAINTAINED, CALL LIGHT WITHIN REACH, BED LOCKED AND ALARM ON. WILL CONTINUE TO MONITOR.
--- NOTE | 2021-10-14 15:25 | NUR ---
PHYSICAL THERAPY NOTE: ATTEMPTED TO SEE PATIENT FOR PHYSICAL THERAPY TREATMENT HOWEVER PATIENT VERY AGGRESSIVE/COMBATIVE AT THIS TIME. NOT FOLLOWING COMMANDS AND IS NOT APPROPRIATE FOR PHYSICAL THERAPY. PER RN AND SOFA INSPECTOR RECOMMEND HOLDING TREATMENT. WILL FOLLOW UP TOMORROW IF PATIENT IS APPROPRIATE.
[2021-10-14 16:26] VITALS: BP 100/69
--- NOTE | 2021-10-14 18:55 | NUR ---
PT RELAXING IN BED, EATING DINNER, COOPERATIVE, BED LOCKED AND IN LOWEST POSITION, SAFETY MEASURES MAINTAINED, 1:1 SITTER, PT FREE FROM INJURY AND STEADY FOR ENDORSEMENT TO PM SHIFT.
--- NOTE | 2021-10-14 19:39 | NUR ---
RECEIVED ENDORSEMENT OF PATIENT BY DEJON CRANE, PATIENT WAS ASLEEP AND STABLE DURING SHIFT REPORT. PATIENT IN BED AT THE LOWEST LEVEL WITH BED ALARM ON AND WORKING. CHEST NOTED RISING AND FALLING WITHOUT DISTRESS. SIDE RAILS UP X 4 AND PADDED FOR SEIZURE/SAFETY. CALL LIGHT WITHIN REACH FOR TV MENTAL STIMULATION. PATIENT HAS NOT BEEN ABLE TO USE CALL LIGHT FOR ASSISTANCE FOR ITS INTENDED USAGE. PATIENT AND ROOMMATE ARE ASSIGNED A SITTER FOR PROTECTION FOR SAFETY. NO REPORTED SEIZURE ACTIVITY REPORTED. NURSING REPORTED PATIENT WAS GIVEN A PRN BECAUSE OF COMBATIVE BEHAVIOR AND DANGER TO SELF ATTEMPTING TO GET OUT OF BED. NURSING WILL CONTINUE TO MONITOR AND PROVIDE CARE. [email or web address]
[2021-10-14 20:00] VITALS: BP 96/64
--- NOTE | 2021-10-14 20:00 | NUR ---
Patient's Plan of Care was discussed and reviewed with LUZ ELENA Loaiza.
--- NOTE | 2021-10-14 21:23 | NUR ---
PATIENT WAS ABLE TO MEDICATION WITHOUT INCIDENT. PATIENT CONTINUES TO ATTEMPT TO GET OUT OF THE BED BUT SITTER REORIENTED HIM TO HOSPITAL AND THE NEED TO STAY IN BED TO BE SAFE THEN DISCHARGE TO ANOTHER FACILITY. PATIENT DENIES ANY PAIN/DISCOMFORT AT THIS TIME. KEPT CLEAN AND DRY. SIDE RAILS UP FOR SAFETY AND PRECAUSTION TO DIAGNOSIS AND FALL RISK. SITTER AT BEDSIDE. [email or web address]
--- NOTE | 2021-10-14 22:14 | NUR ---
PT SLEEPING COMFORTABLY ON RA W/ NO DISTRESS NOTED AT THIS TIME WILL CONTINUE TO MONITOR
--- NOTE | 2021-10-14 23:17 | NUR ---
PATIENT IN BED ASLEEP. NO NOTED ATTEMPTS OF GETTING OUT OF BED. NO NOTED S/S OF PAIN/DISCOMFORT AT THIS TIME. NO NOTED RESPIRATORY DISTRESS. PATIENT REMAINS DRY SINCE LAST CHANGING. SIDE RAILS UP X 2 PADDED FOR SEIZURE SAFETY. NO NOTED SEIZURE ACTIVITY AT THIS TIME. CALL LIGHT IS BY HIS SIDE BUT SITTER AT BED SIDE FOR SAFETY AND ANTICIPATED NEEDS. [email or web address]
--- NOTE | 2021-10-15 01:01 | NUR ---
NURSING NOTED PATIENT IN BED ASLEEP. KEPT COMFORTABLE WITH BLANKETS, KEPT DRY, AND ANTICIPATING NEEDS. NO NOTED S/S OF PAIN/DISCOMFORT. NO NOTED RESPIRATORY DISTRESS. [email or web address]
--- NOTE | 2021-10-15 03:37 | NUR ---
PATIENT WAS ABLE TO GO TO THE RESTROOM WITH ASSIST. PATIENT WAS CHANGED AND BECAUSE PREVIOUS DIAPER WAS WET. NO NOTED S/S OR PAIN/DISCOMFORT. NO S/S OF RESPIRATORY DISTRESS. SITTER REMAINS AT BEDSIDE FOR SAFETY AND ANTICIPATED NEEDS. PATIENT WAS ABLE TO TOLERATED THE CHANGING WELL. [email or web address]
--- NOTE | 2021-10-15 05:00 | NUR ---
PATIENT NTE Addendum: 10/15/21 at 0507 by rBia NICOLEN PATIENT NOTED IN BED ASLEEP. PATIENT HAS NO S/S OF PAIN ANS NO S/S OF RESPIRATORY DISTRESS. NO LABS DRAWN TODAY. PATIENT WAS ABLE TO SLEEP DURING THE ENTIRE NIGHT WITHOUT FALL, SEIZURE, OR INCIDENT. [email or web address]
--- NOTE | 2021-10-15 07:08 | NUR ---
ENDORSED PATIENT TO KAMLESH CRANE, PATIENT WAS STABLE AT CHANGE OF SHIFT. [email or web address]
--- NOTE | 2021-10-15 07:08 | NUR ---
ENDORSED TO WADE CRANE FOR CONTINUITY OF CARE. PATIENT WAS STABLE AT THE CHANGE OF SHIFT. [email or web address]
[2021-10-15] MEDS: SODIUM CHLORIDE FLUSH 10 ML SYR IVF SCH ×2 (07:30→20:17)
[2021-10-15 08:00] VITALS: BP 108/72
[2021-10-15] MEDS: HALOPERIDOL IM 5 MG/ML VIAL IM PRN (11:23)
[2021-10-15] MEDS: OLANZapine 5 MG TAB PO SCH ×2 (11:24→21:18)
[2021-10-15] MEDS: FOLIC ACID 1 MG TAB PO SCH (11:25)
[2021-10-15] MEDS: THIAMINE 100 MG TAB PO SCH (11:25)
[2021-10-15] MEDS: levETIRAcetam 500 MG in NACL 0.9% 100 ML IV SCH ×2 (11:26→20:25)
[2021-10-15] MEDS: QUEtiapine FUMARATE 100 MG TAB PO SCH ×3 (11:29→18:54)
[2021-10-15] MEDS: CYANOCOBALAMIN 100 MCG TAB PO SCH (11:33)
[2021-10-15 16:00] VITALS: BP 104/68
--- NOTE | 2021-10-15 19:10 | NUR ---
RECEIVED PATIENT BACK FROM WADE CRANE. PATIENT WAS STABLE DURING SHIFT CHANGE. PATIENT AWAKE IN BED CALM AND QUEIT WITHOUT INCIDENT. NO RESTRAINTS AT THIS TIME. SITTER AT BEDSIDE FOR ALL NEEDS. PATIENT HAS HAD NO NOTED SEIZURE ACTIVITY AT THIS TIME. SIDE RAILS UP X 4. CALL LIGHT WITHIN REACH FOR MENTAL STIMULATION OF THE TV. PATIENT DOES NOT USE THE CALL LIGHT AND NURSING WILL FREQUENT THE ROOM FOR ASSISTANCE AND NEEDS. PATIENT RESPONDS TO NAME. NO S/S OF PAIN. NO S/S OF RESPIRATORY DISTRESS. [email or web address]
--- NOTE | 2021-10-15 20:00 | NUR ---
Patient's Plan of Care was discussed and reviewed with LUZ ELENA: SUSHILA
--- NOTE | 2021-10-15 21:18 | NUR ---
PATIENT WAS GIVEN EVENING MEDICATION WITHOUT INCIDENT. PATIENT ROLLED OVER TO HIS LEFT SIDE TO GO TO SLEEP. SITTER AT BED SIDE FOR SAFETY. NO NOTED SEIZURE ACTIVITY. NO NOTED ATTEMPTS TO GET OUT OF BED AT THIS TIME. [email or web address]
--- NOTE | 2021-10-16 01:40 | NUR ---
PATIENT IS CURRENTLY ASLEEP. NO NOTED PAIN/DISCOMFORT. NO NOTED RESPIRATORY DISTRESS. HEAD OF BED AT SEMI [place] FOR COMFORT. SITTER AT BED SIDE FOR SAFETY. SIDE RAILS UP X 3 FOR SAFETY AND COMFORT. CALL LIGHT WITHIN REACH FOR MENTAL STIMULATION. NURSING WILL FREQUENT ROOM FOR ANTICIPATED NEEDS. [email or web address]
--- NOTE | 2021-10-16 03:55 | NUR ---
PATIENT MANAGED TO GET OUT OF BED DEMANDING TO GET INTO THE BED NEXT TO HIM. PATIENT WAS WET FROM URINE. SITTER AND NURSING WASHED HIM OFF AND PLACED HIM BACK INTO HIS BED. PATIENT WAS CONFUSED AND ARGUMENTATIVE. REORIENTED HIM TO REALITY AND WAS ABLE TO GET HIM BACK IN THE BED SAFETY WITHOUT INCIDENT. SITTER REMAINS AT BEDSIDE FOR SAFETY AND ASSISTANCE. [email or web address]
[2021-10-16 04:00] VITALS: BP 107/66
--- NOTE | 2021-10-16 06:19 | NUR ---
PATIENT REMAINS IN BED WITH FEWER ATTEMPTS TO GET OUT OF BED. SITTER AT BEDSIDE. PATIENT WILL CONTINUE ON HAVING A SITTER FOR SAFETY OR UNTIL MD CHANGES THE ORDERS. AM SHIFT WILL BE ENDORSED THE CHANGES THAT OCCURRED DURING THE SHIFT. [email or web address]
[2021-10-16] MEDS: SODIUM CHLORIDE FLUSH 10 ML SYR IVF SCH ×2 (07:30→19:30)
--- NOTE | 2021-10-16 07:34 | NUR ---
ENDORSED PATIENT TO BG RN, PATIENT WAS STABLE DURING SHIFT REPORT. [email or web address]
[2021-10-16 08:00] VITALS: BP 109/72
[2021-10-16] MEDS: CYANOCOBALAMIN 100 MCG TAB PO SCH (09:00)
[2021-10-16] MEDS: QUEtiapine FUMARATE 100 MG TAB PO SCH ×3 (09:51→16:50)
[2021-10-16] MEDS: THIAMINE 100 MG TAB PO SCH (09:51)
[2021-10-16] MEDS: OLANZapine 5 MG TAB PO SCH ×3 (09:51→21:15)
[2021-10-16] MEDS: FOLIC ACID 1 MG TAB PO SCH ×2 (09:52→10:32)
[2021-10-16] MEDS ORDERED: DOCUSATE SOD/SENNA 50/8.6 MG 1 TAB PO PRN ×2 (19:25→19:40)
--- NOTE | 2021-10-16 19:30 | NUR ---
RECEIVED REPORT FROM DAY SHIFT NURSE BG. PATIENT IS A&O X2. PATIENT HAS 22G RFA. NO FLUIDS RUNNING AT THIS TIME (SALINE LOCKED). PATIENT IS ON ROOM AIR. BREATHING IS NORMAL WITH SYMMETRICAL RISE AND FALL OF CHEST. PATIENT IS ABLE TO AMBULATE TO BATHROOM WITH ASSISTANCE. PATIENT IS SLEEPING. PATIENT CURRENTLY HAS APPLICATION SUPPORT LAURIE SITTER. WILL CONTINUE TO OBSERVE PATIENT.
[2021-10-16 20:00] VITALS: BP 132/87
[2021-10-16] MEDS: levETIRAcetam 500 MG TAB PO SCH (21:16)
[2021-10-16] MEDS: NACL 0.9% 500 ML IV SCH ×3 (21:25→22:27)
--- NOTE | 2021-10-16 21:30 | NUR ---
ADMINISTERED 2100 MEDICATION TO PATIENT AT 2115. WAS GOING TO CRUSH MEDICATION AND GIVE IN APPLESAUCE, BUT PATIENT WAS ALERT AND ASKED I HAD MEDICATION. I STATED YES. HE ASKED IF THEY WERE TABLETS. I STATED YES. HE THEN HELD OUT HIS HAND. I ASKED HIM IF HE COULD SWALLOW THEM OKAY. HE SAID YES. PATIENT SAT UP WITH LEGS DANGLING OFF SIDE OF BED I GAVE ONE TABLET TO PATIENT AND HE SWALLOWED WITH WATER. I THEN GAVE SECOND TABLET, WHICH HE WAS ABLE TO SWALLOW WITH WATER. PATIENT SAID, "THANK YOU FOR THE PILLS", AND THEN LAID BACK DOWN IN BED. PATIENT CURRENTLY SEEMS TO BE MORE ALERT THAN HE HAD BEEN PREVIOUSLY. BREATHING WAS NORMAL WITH SYMMETRICAL RISE AND FALL OF CHEST. WILL CONTINUE TO OBSERVE PATIENT.
--- NOTE | 2021-10-17 | NUR ---
LOOKED IN ON PATIENT. PATIENT WAS SLEEPING. KULDEEP SULLIVAN INFORMED ME THAT HE HAD AMBULATED THE PATIENT TO THE BATHROOM. PATIENT IS VERY UNSTEADY, BUT CAN AMBULATE WITH ASSISTANCE. BREATHING IS NORMAL WITH SYMMETRICAL RISE AND FALL OF CHEST. WILL CONTINUE TO OBSERVE PATIENT.
--- NOTE | 2021-10-17 02:30 | NUR ---
PATIENT WOKE UP AND WAS AMBULATED TO THE BATHROOM WITH THE ASSISTANCE OF KULDEEP SULLIVAN. PATIENT WAS ABLE TO VOID, BUT NO BOWEL MOVEMENT. LAURIE ASSISTED PATIENT BACK INTO BED. PATIENT TOLERATED AMBULATION WITH ASSISTANCE WELL. BED IS IN LOWEST POSITION, WHEELS LOCKED, CALL LIGHT IN PLACE. WILL CONTINUE TO OBSERVE.
[2021-10-17 04:00] VITALS: BP 102/62
--- NOTE | 2021-10-17 04:15 | NUR ---
PATIENT IS SLEEPING. WOKE PATIENT UP FOR VITALS. PATIENT WAS VERY COOPERATIVE. VITALS WERE: TEMP 97.3, HR 80, BP 102/62, O2 98, RR 18. WILL CONTINUE TO OBSERVE PATIENT.
--- NOTE | 2021-10-17 06:45 | NUR ---
LOOKED IN ON PATIENT. PATIENT WAS SLEEPING. BREATHING WAS NORMAL WITH SYMMETRICAL RISE AND FALL OF CHEST. WILL CONTINUE TO OBSERVE PATIENT.
[2021-10-17] MEDS: SODIUM CHLORIDE FLUSH 10 ML SYR IVF SCH ×2 (07:30→20:43)
--- NOTE | 2021-10-17 07:45 | NUR ---
ENDORSED TO DAY SHIFT NURSE ANJANA FOR CONTINUITY OF CARE. PATIENT IS STABLE.
--- NOTE | 2021-10-17 08:00 | NUR ---
GOT REPORT FROM THE NIGHT NURSE, PT IS AWAKE, NO SOB, NO DISCOMFORT.[id number]
[2021-10-17] MEDS: LACTULOSE 20 GM/30 ML UDC PO PRN (08:53)
[2021-10-17] MEDS: THIAMINE 100 MG TAB PO SCH (08:54)
[2021-10-17] MEDS: QUEtiapine FUMARATE 100 MG TAB PO SCH ×3 (08:54→16:59)
[2021-10-17] MEDS: OLANZapine 5 MG TAB PO SCH ×2 (08:54→21:16)
[2021-10-17] MEDS: levETIRAcetam 500 MG TAB PO SCH ×2 (08:55→21:16)
[2021-10-17] MEDS: CYANOCOBALAMIN 100 MCG TAB PO SCH (09:02)
--- NOTE | 2021-10-17 11:41 | NUR ---
PT IS IN THE BATH ROOM FOR THE SECOND TIME , FIRST JUST URINATED NOW LARGE BM. [email or web address]
[2021-10-17 12:00] VITALS: BP 102/62
--- NOTE | 2021-10-17 12:22 | NUR ---
PT IS UP ON CHAIR AT THE SIDE OF BED EATING LUNCH.[email or web address]
--- NOTE | 2021-10-17 15:59 | NUR ---
pt is in bed after using the bathroom.[email or web address]
--- NOTE | 2021-10-17 19:47 | NUR ---
RECEIVED BEDSIDE REPORT FROM DAY SHIFT NURSE. PT IS AWAKE, ALERT AND VERBALLY RESPONSIVE. RESPIRATION EVEN, NO SOB OR DISTRESS. SKIN INTACT. IV SITE ON RIGHT FOREARM INTACT. PT USES RESTROOM, AMBULATES TO RESTROOM WITH ASSIST. CONTINUE MONITORING.
[2021-10-17 20:00] VITALS: BP 110/78
--- NOTE | 2021-10-17 20:30 | NUR ---
PT USES RESTROOM, AMBULATES WITH ASSIST.
--- NOTE | 2021-10-18 00:15 | NUR ---
PT USES RESTROOM, AMBULATES WITH ASSIST.
--- NOTE | 2021-10-18 01:30 | NUR ---
PT AWAKE AND CONFUSED, USES RESTROOM WITH ASSIST.
[2021-10-18 04:00] VITALS: BP 126/90
--- NOTE | 2021-10-18 07:30 | NUR ---
PT IS ASLEEP. ALL SAFETY MEASURES IN PLACE. ENDORSED TO DAY SHIFT NURSE FOR CONTINUITY OF CARE.
--- NOTE | 2021-10-18 07:54 | NUR ---
RECEIVED REPORT FROM ECONOMETRICS PROFESSOR NURSE PATIENT ASLEEP BUT REPORTED DIDN'T SLEEP THE WHOLE NIGHT NOT UNTIL O630 AM. IV ON RIGHT FORE ARM BRYAN 22 TKO. CALL LIGHT WITH IN EASY REACH.
--- NOTE | 2021-10-18 07:56 | NUR ---
RECEIVED REPORT FROM GPS FIELD DATA COLLECTOR NURSE FOR CONTINUITY OF CARE PATIENT ON STABLE CONDITION WITH WRIST RESTRAIN .RN LEFT MESSAGE TO DR. TIWARI FOR RENEWAL OF RESTRAINT ALSO RECEIVED REPORT THAT PATIENT HAS BEE HAVING BOWEL MOVEMENT THE WHOLE NIGHT BUT STILL NOT CLEAR YET WITH ORDER FOR ENEMA GIVEN ONE ALREADY AND RECIEVED CALL FROM DR. HOOKS TO GIVE WATER ENEMA 1.5 LITER SOON POSSIBLE. PATIENT ON SITTER. IV SITE ON LEFT AC BRYAN 18 RUNNING 100 CC/HOUR. PATIENT REFUSED TO TAKE MAG CITRATE HIS CLOSING HIS MOUTH. Addendum: 10/18/21 at 0943 by Jojo Lerma LVN WRONG PATIENT
[2021-10-18 08:00] VITALS: BP 136/78
[2021-10-18] MEDS: CYANOCOBALAMIN 100 MCG TAB PO SCH (09:29)
[2021-10-18] MEDS: OLANZapine 5 MG TAB PO SCH ×2 (09:30→21:03)
[2021-10-18] MEDS: THIAMINE 100 MG TAB PO SCH (09:30)
[2021-10-18] MEDS: LACTULOSE 20 GM/30 ML UDC PO PRN (09:30)
[2021-10-18] MEDS: levETIRAcetam 500 MG TAB PO SCH ×2 (09:30→21:03)
[2021-10-18] MEDS: FOLIC ACID 1 MG TAB PO SCH (09:31)
[2021-10-18] MEDS: SODIUM CHLORIDE FLUSH 10 ML SYR IVF SCH ×2 (09:31→19:56)
[2021-10-18] MEDS: QUEtiapine FUMARATE 100 MG TAB PO SCH ×3 (09:31→17:15)
--- NOTE | 2021-10-18 09:42 | NUR ---
PATIENT CALM GIVEN ALL DUE MEDICATION.
--- NOTE | 2021-10-18 11:00 | NUR ---
PATIENT ON BED RESTING NO DISTRESS NOTED ASLEEP WITH CALL LIGHT WITH IN EASY REACH.
--- NOTE | 2021-10-18 12:15 | NUR ---
I TRIED TO FEED PATIENT ONLY DRINK MILK REFUSED TO EAST HIS MEAL. PATIENT ON STABLE CONDITION. ASSISTED TO TOILET.
--- NOTE | 2021-10-18 15:13 | NUR ---
PATIENT ON BED LEEP CALL LIGHT WITH IN EASY REACH.
--- NOTE | 2021-10-18 17:20 | NUR ---
Given his evening medication tolerated well.
--- NOTE | 2021-10-18 18:47 | NUR ---
OFFERED PATIENT DINNER BUT REFUSED TO EAT AT THIS TIME. CALM CALL LIGHT WITH IN EASY REACH.
--- NOTE | 2021-10-18 19:17 | NUR ---
RECEIVED BEDSIDE ENDORSEMENT FROM DAY SHIFT NURSE FOR CONTINUITY OF CARE. PT IS AWAKE, ALERT AND RESPONSIVE. RESPIRATION EVEN, NO SOB OR DISTRESS. IV LOCK AT RIGHT FOREARM INTACT AND PATENT. SKIN SURROUNDING IV SITE WNL NO PHLEBITIS, REDNESS OR RASHES. SKIN INTACT, DRY AND WARM. PT IS EATING EATING DINNER. WILL CONTINUE TO MONITOR.
--- NOTE | 2021-10-18 19:18 | NUR ---
GAVE REPORT TONIGHT SHIFT NURSE FOR CONTINUITY OF CARE.
[2021-10-18 20:00] VITALS: BP 126/79
--- NOTE | 2021-10-18 22:00 | NUR ---
PT NOTED CONFUSED AND NEEDS REDIRECTION TO THE TOILET. PT HAS BM.
--- NOTE | 2021-10-18 23:00 | NUR ---
PT AMBULATES TO RESTROOM WITH REDIRECTION.
--- NOTE | 2021-10-18 23:30 | NUR ---
PT ASKING DATES AND DAYS, COUNTING DAYS AND STATED WANTS TO GO HOME. PT RAISED VOICE. REDIRECTED PT. MAKE HIM AWARE TODAY IS A HOLIDAY OF LABOR DAY. PT REPLY "I DON'T KNOW ABOUT THAT". PT THEN CALM DOWN.
--- NOTE | 2021-10-19 00:15 | NUR ---
PT USES RESTROOM AND AMBULATES TO RESTROOM WITH SUPERVISION AND REDIRECT HIM. PT FOLLOWS INSTRUCTIONS.
[2021-10-19 04:00] VITALS: BP 122/76
--- NOTE | 2021-10-19 07:21 | NUR ---
PT IS ON STABLE CONDITION AND IS SLEEPING. RESPIRATION EVEN, NO SOB OR DISTRESS. SKIN INTACT, WARM AND DRY. IV SITE ON RIGHT FOREARM INTACT AND PATENT. ALL SAFETY MEASURES ARE IN PLACE. ENDORSED TO DAY SHIFT NURSE FOR CONTINUITY OF CARE.
--- NOTE | 2021-10-19 07:22 | NUR ---
RECEIVE REPORT FROM MAYONNAISE MIXER NURSE ANGELA FOR CONTINUITY OF CARE. PATIENT CALM AND ASLEEP NO DISTRESS NOTED. IV SITE ON HIS RIGHT FORE ARM BRYAN 22 SALINE LOCK. ALL SAFETY MEASURE IN PLACE.
[2021-10-19] MEDS: SODIUM CHLORIDE FLUSH 10 ML SYR IVF SCH ×2 (07:30→19:30)
[2021-10-19] MEDS: FOLIC ACID 1 MG TAB PO SCH (09:06)
[2021-10-19] MEDS: levETIRAcetam 500 MG TAB PO SCH ×2 (09:06→20:57)
[2021-10-19] MEDS: THIAMINE 100 MG TAB PO SCH (09:06)
[2021-10-19] MEDS: CYANOCOBALAMIN 100 MCG TAB PO SCH (09:07)
[2021-10-19] MEDS: OLANZapine 5 MG TAB PO SCH ×2 (09:07→20:57)
[2021-10-19] MEDS: QUEtiapine FUMARATE 100 MG TAB PO SCH ×3 (09:07→17:39)
[2021-10-19] MEDS: LACTULOSE 20 GM/30 ML UDC PO PRN ×2 (09:08→20:58)
--- NOTE | 2021-10-19 09:12 | NUR ---
PATIENT SEEN BY DR. DONAHUE. GIVEN HIS MEDICATION TOLERATED WELL.
--- NOTE | 2021-10-19 11:00 | NUR ---
PATIENT AWAKE ASSISTED TO TOILET NO DISTRESS NOTED.
--- NOTE | 2021-10-19 12:11 | NUR ---
LUNCH SERVE BUT PATIENT ASLEEP WILL WAIT A FEW MORE MINUTE TO WAKE HIM UP CALL LIGHT WITH IN EASY REACH CHECKED FREQUENTLY.
--- NOTE | 2021-10-19 12:27 | NUR ---
PATIENT AWAKE NOW START EATING GIVEN THE SEROQUEL.
--- NOTE | 2021-10-19 15:51 | NUR ---
KEYLA PLANNING STEVE FOLLOWED UP WITH NORMA,[phone], AUDREY DIFFICULT TO PLACE UNIT . NORMA REPORTS THAT REFERRAL IS STILL UNDER REVIEW AND HIS TEAM CONTINUES TO WORK ON IDENTIFYING PLACEMENT. NORMA REQUESTING UPDATED PACKET TO BE SENT WITH LATEST PROGRESS NOTES AND PT NOTES. STEVE FAXED OVER UPDATED PACKET, REQUESTED BY NORMA TO [phone].
[2021-10-19 16:00] VITALS: BP 108/70
--- NOTE | 2021-10-19 19:22 | NUR ---
PATIENT AWAKE NO DISTRESS NOTED. GAVE REPORT TO PLACEMENT OFFICER NURSE UCHE FOR CONTINUITY OF CARE.
--- NOTE | 2021-10-19 19:23 | NUR ---
RECEIVED ENDORSEMENT FROM RYAN LAGUNA, PATIENT WAS STABLE DURING SHIFT REPORT. PATIENT WAS WALKING AROUND IN HIS ROOM UN ASSISTED. PATIENT DENIES ANY PAIN/DISCOMFORT AT THIS TIME. PATIENT IS CONFUSED AND THINKS HE IS LEAVING TODAY. NURSING ADVISED HIM HE DOES NOT HAVE PLACEMENT AT THIS TIME. PATIENT MUMBLED WORDS THEN SAT ON HIS BED. BED AT THE LOWEST LEVEL KEPT CLEAN AND DRY. SIDE RAILS UP X 3 AND PADDED FOR SEIZURE PRECAUTION AND SAFETY. CALL LIGHT WITHIN REACH. NURSING WILL FREQUENT THIS ROOM BECASUE OF PATIENT WANDERING AND NOT ABLE TO VERBALIZE HE UNDERSTOOD SIMPLE INSTRUCTIONS. [email or web address]
--- NOTE | 2021-10-19 19:45 | NUR ---
DISCUSSED AND REVIEWED PLAN OF CARE WITH LUZ ELENA SHORT.
[2021-10-19 20:00] VITALS: BP 131/71
--- NOTE | 2021-10-19 21:30 | NUR ---
PATIENT HAS COME OUT OF HIS ROOM WITH UNSTEADY GAIT YELLING AND THREATENING TO DUSTIN EVERYONE. PATIENT THEN ARGUES WITH ROOMMATE OVER SPACE. NURSING HAS ALREADY GIVEN EVENING MEDICATION THAT CAN CAUSE PATIENT TO SLEEPY AND FALL. NURSING WILL FREQUENT THIS ROOM FOR SAFETY TO MEASUREMENT. WIRE RIGGER WAS NOTIFIED FOR POSSIBLE NEW ORDERS TO ENSURE HIS SAFETY. [email or web address]
--- NOTE | 2021-10-19 21:44 | NUR ---
PATIENT HAS ALSO PULLED OUT IV AND DECLINED FOR NURSING TO INSERT ANOTHER ONE. NURSING WILL ATTEMPT TO TRY LATER. COVERING RN WAS NOTIFIED. [email or web address]
--- NOTE | 2021-10-19 23:06 | NUR ---
PATIENT CONFUSED AND ATTEMPTED TO GO INTO THE HALLWAY TO THE RESTROOM. NURSING REDIRECTED PATIENT TO HIS RESTROOM AND HE STATED HE NO LONGER NEEDED TO GO. NURSING WILL FREQUENT THIS ROOM FOR ANTICIPATED NEEDS. NO WORD FROM MD AT THIS TIME FOR NEW ORDERS. [email or web address]
[2021-10-19] MEDS: HALOPERIDOL IM 5 MG/ML VIAL IM PRN (23:18)
--- NOTE | 2021-10-20 00:18 | NUR ---
DR STRONG GAVE ORDERS FOR SITTER BECAUSE FOR PATIENT'S UNSAFE BEHAVIOR GETTING OUT OF BED WITH UNSTEADY GAIT. PATIENT CONFUSED AND MEDICATION MAKES HIS DROWSY AND HE INSIST ON GETTING OUT OF THE BED TO TRY TO GET IN ROOMMATES BED. YELLING AND THREATENING ROOMMATE. PULLED OUT ALL IV ACCESS AND REFUSES FOR A NEW ONE TO BE REINSERTED. NURSING HAS PLACED HER WORKSTATION AT BEDSIDE TO ENSURE SAFETY AND MONITOR FOR SEIZURE ACTIVITY. [email or web address]
--- NOTE | 2021-10-20 03:42 | NUR ---
PATIENT IN BED ASLEEP. NURSING NOTED CHEST RISING AND FALLING WITHOUT INCIDENT. NO NOTED S/S OF PAIN/DISCOMFORT AT THIS TIME. CALL LIGHT IN REACH FOR ASSISTANCE. [email or web address]
[2021-10-20 04:00] VITALS: BP 130/68
--- NOTE | 2021-10-20 05:56 | NUR ---
PATIENT IN IN BED ASLEEP. NO S/S OF PAIN/DISCOMFORT. NO S/S OF RESPIRATORY DISTRESS. KEPT CLEAN AND DRY. ALL NEEDS MET. CALL LIGHT WITHIN REACH FOR ASSISTANCE. [email or web address]
--- NOTE | 2021-10-20 07:04 | NUR ---
RECEIVED REPORT FROM LICENSED BONDSMAN NURSE FOR CONTINUITY OF CARE. PATIENT ASLEEP AT THIS TIME ON ONE ON ONE SITTER ENDORSE.
--- NOTE | 2021-10-20 07:04 | NUR ---
ENDORSED PATIENT TO RYAN LAGUNA, PATIENT WAS STABLE DURING THE CHANGE OF SHIFT. [email or web address]
[2021-10-20] MEDS: SODIUM CHLORIDE FLUSH 10 ML SYR IVF SCH ×2 (07:30→19:30)
[2021-10-20 08:00] VITALS: BP 108/70
--- NOTE | 2021-10-20 09:46 | NUR ---
GIVEN HIS MEDICATION TOLERATED WELL. PATIENT ON STABLE CONDITION ASSISTED BY [facility] SPECIALIST WHEN GOING TO TOILET.
[2021-10-20] MEDS: THIAMINE 100 MG TAB PO SCH (09:48)
[2021-10-20] MEDS: levETIRAcetam 500 MG TAB PO SCH ×2 (09:48→21:38)
[2021-10-20] MEDS: QUEtiapine FUMARATE 100 MG TAB PO SCH ×3 (09:49→17:29)
[2021-10-20] MEDS: OLANZapine 5 MG TAB PO SCH ×2 (09:49→21:37)
[2021-10-20] MEDS: CYANOCOBALAMIN 100 MCG TAB PO SCH (09:49)
[2021-10-20] MEDS: FOLIC ACID 1 MG TAB PO SCH (09:49)
[2021-10-20] MEDS: LACTULOSE 20 GM/30 ML UDC PO PRN (09:50)
--- NOTE | 2021-10-20 11:43 | NUR ---
DISCHARGE PLANNING STEVE CALLED NORMA CRANE, CLINICAL REVIEWER AT [facility] , FROM [facility] UN[facility] TO MAKE SURE NORMA RECEIVED REQUESTED UPDATED PACKET, PROGRESS NOTES, AND INFORMATION SEND YESTERDAY FROM STEVE Arellano PER NORMA HE HAS RECEIVED ALL REQUESTED INFORMATION AND UPDATED PACKETS TO BE SENT WITH LATEST PROGRESS NOTES TO COMMERCIAL ACCOUNTANT LOOKING FOR PATIENT'S PLACEMENT ON A DAILY BASIS. PER NORMA THE CASE IS EXTREMELY DIFFICULT AND CAN TAKE UP TO A MONTH TO FIND PLACEMENT FOR THESE PLACEMENT. STEVE QUESTION NORMA ANTICIPATED PLACEMENT SEARCH AND FINDING DUE TO THE FACT THAT [facility] CM/SW HAS BEEN VERY PROACTIVE AND COMMUNICATED SINCE THE BEGANING WITH NORMA CRANE CLINICAL REVIEW FROM [facility] ABOUT PATIENT STATUS AND SITUATION WITH STATUS. STEVE ALSO REMINDED NORMA THAT ALL COMMUNICATION WITH HIM AND INSURANCE HAS BEEN DOCUMENTED. WELL; [facility] ADMINISTRATION IS QUESTIONING CASE STATUS ON A DAILY BASIS; AND THAT CM/SW WILL BE CONTACTING INSURANCE FOR UPDATES WELL TO MAKE SURE THEY CONTINUE TO APPROVE PATIENT HOSPITAL STAY WHILE PLACEMENT CONTINUES FOR SEARCH. [facility] [employer] APPROVALS FOR PATIENT HOSPITAL STAY WILL CONTINUE WELL PLACEMENT SEARCH. SW/CM WILL CONTINUE TO CALL NORMA FOR FOLLOW UPS NEEDED. Addendum: 10/21/21 at 1828 by Katia ALVAREZ DISCHARGE PLANNING LATE ENTRY STEVE CALLED NORMA CRANE, CLINICAL REVIEWER AT [facility] , FROM [facility] TO REQUESTED AN UPDATED ON PATIENT'S PLACEMENT SEARCH. PER NORMA THERE STILL NO UPDATES ON THE PLACEMENT SEARCH OF TODAY. STEVE/ ROSSI WILL CONTINUE FOLLOWING UP NEEDED. Addendum: 10/21/21 at 1842 by Katia Carrillo SS DISCHARGE PLANNING STEVE CONTACTED [facility] AT TO DISCUSS PATIENT'S POSSIBLE INVOLVEMENT AND ASSESSMENT WITH THEIR PROGRAM AT DISCHARGE SINCE PATIENT IS APPROPRIATE FOR THEIR SERVICES. PER AFTAB PATIENT NEEDS TO COMPLETE AN OVER THE PHONE ASSESSMENT AND HE PROVIDED THE PHONE NUMBER TO SIGN UP PATIENT FOR PROGRAM IN WHICH HE WILL BE ASSIGN A PLATFORM BUILDER TO CALL FOR A PHONE INTERVIEW AND SEND A TEAM FROM THE PROGRAM TO VISIT PATIENT TO HAVE ASSESSMENT DONE BEFORE DC. STEVE THANK [facility] AND ENDED THE CALL . STEVE CALL [facility] NUMBER PROVIDED TO PROVIDE PATIENT'S INFORMATION FOR ASSESSMENT PER LUCY PATIENT WILL BE CONTACT FOR A PHONE INTERVIEW AND A PLATFORM BUILDER WILL BE VISITING PATIENT TO DO ASSESSMENT WITH PATIENT. STVEE PROVIDED PHONE CONTACT AND WILL FOLLOW UP NEEDED. Addendum: 10/25/21 at 1614 by Katia Carrillo SS DISCHARGE PLANNING STEVE CALLED NORMA CRANE, CLINICAL REVIEWER AT [facility] , FROM [facility] TO DISCUSS PATIENT'S CASE AND GET UPDATED INFORMATION ABOUT PLACEMENT SEARCH. PER NORMA HE IS STILL REPORTING NO PLACEMENT IS FOUND BY HIS TEAM AND COMMERCIAL ACCOUNTANT. STEVE REQUESTED TO SPEAK TO INTERNAL WHOLESALER OR NORMA SEGMENTAL PAVER INSTALLER PER NORMA SOMEONE FROM [facility] WILL BE CALLING THESE MAILROOM ASSOCIATE. STEVE WILL FOLLOW UP NEEDED. DISCHARGE PLANNING [facility]NAL WHOLESALER PADMAJA CONTACTED STEVE TO DISCUSS PATIENT'S CASE AND DIFFICULT PLACEMENT. STEVE REVIEW WITH [facility] INTERNAL WHOLESALER PADMAJA THE EFFORTS MADE IN ATTEMPTING TO FIND PLACEMENT FOR PATIENT INTO A SNF. BASED ON THE LIST PROVIDED BY [facility] INS. STEVE CONFIRMED IN SEVERAL OCCASIONS THAT INFORMATION AND DOCUMENTATIONS HAS BEEN SEND TO THE INSURANCE IN MANY AND SEVERAL OCCASIONS; FOR THE INTERNAL WHOLESALER IN DIFFICULT PLACEMENT UNIT TO INITIATE THE ASSISTANCE WITH SEARCH. STEVE NOTED TO PADMAJA THAT SINCE LAST WEEK NO PLACEMENT HAS BEEN FOUND AND TODAY 10/25/2021 WHEN STEVE CALLED FOR UPDATES SHE WAS TOLD THAT DOCUMENTATION STILL MISSING THEREFORE; PLACEMENT IS NOT FOUND. STEVE THEN INFORMED NORMA CRANE THAT ALL FORMS, REFERRAL, ATTEMPTS NEEDED AND ADDITIONAL INFORMATION REQUESTED BY NORMA HAS BEEN SEND. IN ADDITION ALL CONTACT HAS BEEN DOCUMENTED BY THESE MAILROOM ASSOCIATE. PADMAJA INTERNAL WHOLESALER FROM [facility] STATED THAT IT WAS A MIS COMMUNICATION AND THAT ALL INFORMATION REQUIRED HAS BEEN RECEIVED AND THAT PLACEMENT IS JUST DIFFICULT AND NONE HAS BEEN FOUND YET OF TODAY. PER PADMAJA SHE WILL BE THE POINT OF REFERENCE AND SHE WILL BE HANDLING THE CASE WITH THESE MAILROOM ASSOCIATE. PADMAJA INTERNAL WHOLESALER REQUESTED THESE WRITERS DIRECT NUMBER AND WILL CONTINUE COMMUNICATING ABOUT PATIENTS CASE NEEDED. PADMAJA PROVIDED HER FAX NUMBER . STEVE WILL FOLLOW UP NEEDED. Addendum: 10/25/21 at 0906 by Katia Carrillo DISCHARGE PLANNING SW CALL [facility] PROGRAM AT [phone] TO CHECK ON STATUS OF PROGRAM AND ASSESSMENT FOR PATIENT TO ENROLL TO THEIR SERVICES. SW TALK TO JASMIN WHO STATED THAT PATIENT PROGRAM TEAM WAS NOT AVAILABLE IN THE AREA TODAY AND REPORTED THAT TOMORROW SHE WILL CALL AGAIN AND IF PATIENT STILL THE HOSPITAL AND THE PROGRAM TEAM IS AVAILABLE SHE WILL COMMUNICATE WITH THESE MAILROOM ASSOCIATE. SW AGREED AND WILL FOLLOW UP NEEDED.
--- NOTE | 2021-10-20 13:08 | NUR ---
PATIENT CALM GIVEN HIS NOON MEDICATION TOLERATED WELL.
--- NOTE | 2021-10-20 14:30 | NUR ---
10/20/21 RD FOLLOW UP COMPLETED PLEASE REFER TO NUTRITION ASSESSMENT UNDER CARE ACTIVITY FOR ESTIMATED NUTRITIONAL NEEDS. 1. CONTINUE WITH REGULAR PUREED DIET, TOLERATED 2. RD TO FOLLOW-UP 7 DAYS, LOW RISK REVIEWED BY ENEDINA BELLAMY RD
--- NOTE | 2021-10-20 18:56 | NUR ---
PATIENT ON BED ASLEEP ON STABLE CONDITION CALL LIGHT WITH IN EASY REACH.
--- NOTE | 2021-10-20 19:30 | NUR ---
GAVE REPORT TO TAXATION ACCOUNTANT NURSE FOR CONTINUITY OF CARE.
--- NOTE | 2021-10-20 19:31 | NUR ---
RECD. RESTING IN BED ASLEEP BUT EASILY AROUSABLE. A/OX2, WITH SLURRED SPEECH AND OCCASIONAL CONFUSION. NO IV LINE ABLE TO AMBULATE TO THE BR WITH ASSISTANCE. SAFETY MEASURES ENFORCED. BED IN THE LOWEST POSITION, CALL LIGHT IN REACH. DENIES PAIN 0/10.
--- NOTE | 2021-10-20 19:45 | NUR ---
DISCUSSED AND REVIEWED PATIENT PLAN OF CARE WITH DESIZING MACHINE BACK TENDERTimothy SHORT. Addendum: 10/21/21 at 0018 by Asuncion Thompson RN RN CORRECTION: DISCUSSED AND REVIEWED PLAN OF CARE WITH LUZ ELENA LEVY.
[2021-10-20 20:00] VITALS: BP 112/85
--- NOTE | 2021-10-20 21:37 | NUR ---
SCHEDULED MEDICATIONS ADMINISTERED WITH PUDDING. TOLERATED WELL.
--- NOTE | 2021-10-20 23:00 | NUR ---
SLEEPING COMFORTABLY IN BED. RESPIRATION EVEN AND UNLABORED.
--- NOTE | 2021-10-21 01:00 | NUR ---
AWAKE, GIVEN TWO PUDDING REQUESTED. WENT BACK TO SLEEP AFTER EATING.
--- NOTE | 2021-10-21 03:00 | NUR ---
SLEEPING COMFORTABLY. REFUSED NEW IV INSERTION. REORIENTED ON ITS IMPORTANCE, UNABLE TO COMPREHEND.
[2021-10-21 04:00] VITALS: BP 104/64
--- NOTE | 2021-10-21 06:00 | NUR ---
STILL SLEEPING COMFORTABLY ON HIS RIGHT SIDE. NO RESPIRATORY DISTRESS NOTED.
--- NOTE | 2021-10-21 07:00 | NUR ---
CONDITION REMAIN STABLE. WILL ENDORSE TO AM SHIFT NURSE FOR CONTINUITY OF CARE.
[2021-10-21] MEDS: SODIUM CHLORIDE FLUSH 10 ML SYR IVF SCH ×2 (07:30→19:30)
[2021-10-21 08:00] VITALS: BP 100/57
[2021-10-21] MEDS: CYANOCOBALAMIN 100 MCG TAB PO SCH (09:00)
[2021-10-21] MEDS: THIAMINE 100 MG TAB PO SCH (09:14)
[2021-10-21] MEDS: FOLIC ACID 1 MG TAB PO SCH (09:14)
[2021-10-21] MEDS: levETIRAcetam 500 MG TAB PO SCH ×2 (09:14→20:52)
[2021-10-21] MEDS: QUEtiapine FUMARATE 100 MG TAB PO SCH ×3 (09:14→17:00)
[2021-10-21] MEDS: OLANZapine 5 MG TAB PO SCH ×2 (09:15→20:52)
--- NOTE | 2021-10-21 15:54 | NUR ---
PT TO REMAIN W/O 1:1 SITTER FOR AT LEAST 24 HRS BEFORE PLACEMENT. "INROADS" OF [facility] IS ANTICIPATED TO CONDUCT PHONE INTERVIEW EITHER TODAY OR TOMORROW.
--- NOTE | 2021-10-21 19:30 | NUR ---
PATIENT WAS ENDORSED BY BG CRANE FOR CONTINUITY OF CARE. PATIENT WAS IN BED AWAKE AND NOT TALKING BUT WOULD TURN TO NURSE WHEN HIS NAME WAS CALLED. PATIENT WAS KEPT CLEAN AND DRY NO NOTED S/S OF PAIN/DISCOMFORT. NO NOTED RESPIRATORY DISTRESS. PATIENT NO LONGER HAS IV ACCESS. SIDE RAILS PADDED X 3. CALL LIGHT WITHIN REACH BUT USED FOR MENTAL STIMULATION. NURSING WILL FREQUENT THIS ROOM FOR ANTICIPATING NEEDS AND PATIENT HISTORY OF WANDERING AROUND WITH UNSTEADY GAIT. [email or web address]
--- NOTE | 2021-10-21 19:45 | NUR ---
DISCUSSED AND REVIEWED PATIENT PLAN OF CARE WITH LUZ ELENA SHORT.
[2021-10-21 20:00] VITALS: BP 106/62
--- NOTE | 2021-10-21 21:49 | NUR ---
PATIENT IS IN BED RESTING BUT NOT ASLEEP. PATIENT WAS ABLE TO TOLERATED MEDICATIONS WELL. PATIENT ATTEMPTED TO USE THE CLOSET FOR A BATHROOM AND WAS GUIDED BY NURSING TO BATHROOM. PATIENT WENT TO THE RESTROOM WITHOUT INCIDENT GAIT UNSTEADY NURSING AT SIDE TO ENSURE PATIENT NOT TO FALL. NURSING WILL FREQUENT THIS ROOM FOR ANTICIPATED ASSISTANCE. [email or web address]
--- NOTE | 2021-10-21 22:44 | NUR ---
NO NOTED IVPB TO COVERING KENDRA CRANE. [email or web address]
--- NOTE | 2021-10-21 23:07 | NUR ---
PATIENT WENT OVER TO ROOMMATES SIDE OF THE ROOM TO TAKE ROOMMATES JUICE. NURSING STOPPED HIM AND REDIRECTED HIM TO HIS SIDE OT THE ROOM WITH HIS JUICE AND WATER. PATIENT YELLED IN CROATIAN HE WAS GOING TO CALL THE POLICE. NURSING ASSISTED HIM BACK TO BED. NURSING WILL FREQUENT THE ROOM TO RESTORE ORIENTATION TO HIS ITEMS AND ANTICIPATE NEEDS. [email or web address]
--- NOTE | 2021-10-22 01:24 | NUR ---
PATIENT IN BED ASLEEP CHEST NOTED RISING AND FALLING WITHOUT INCIDENT. [email or web address]
--- NOTE | 2021-10-22 03:54 | NUR ---
PATIENT IS EASE TO AROUSE WHEN NAME IS CALLED. NO NOTED S/S OF PAIN. NO NOTED S/S OF RESPIRATORY DISTRESS. PATIENT REMAINS CLEAN AND DRY. SIDE RAILS UP X 3 FOR SAFETY AND COMFORT. BED AT LOWEST LEVEL. SEMI DELVALLE POSITION. CALL LIGHT WITHIN REACH FOR MENTAL STIMULATION FOR TV. NURSING WILL FREQUENT THIS ROOM FOR SAFETY AND ANTICIPATED NEEDS. [email or web address]
[2021-10-22 04:00] VITALS: BP 107/68
--- NOTE | 2021-10-22 05:38 | NUR ---
PATIENT AWAKE IN BED QUESTIONING WHEN BREAKFAST WAS. NURSING ANSWERED HIM AND HE LAID DOWN. PATIENT SHOWED NOT SEIZURE ACTIVITY. NO NOTED PAIN ALYCIA. CALL NEEDS MEET AND ANTICIPATED. CALL LIGHT WITHIN REACH. [email or web address]
--- NOTE | 2021-10-22 07:27 | NUR ---
ENDORSED PATIENT CARE TO BG RN FOR CONTINUITY OF CARE. PATIENT WAS STABLE AT THE CHANGE OF SHIFT. [email or web address]
[2021-10-22] MEDS: SODIUM CHLORIDE FLUSH 10 ML SYR IVF SCH ×2 (07:30→19:30)
[2021-10-22] MEDS: FOLIC ACID 1 MG TAB PO SCH (09:00)
[2021-10-22] MEDS: CYANOCOBALAMIN 100 MCG TAB PO SCH (09:00)
[2021-10-22] MEDS: QUEtiapine FUMARATE 100 MG TAB PO SCH ×3 (09:00→17:00)
[2021-10-22] MEDS: OLANZapine 5 MG TAB PO SCH ×2 (09:00→21:44)
[2021-10-22] MEDS: levETIRAcetam 500 MG TAB PO SCH ×2 (09:00→21:44)
[2021-10-22] MEDS: THIAMINE 100 MG TAB PO SCH (09:00)
--- NOTE | 2021-10-22 09:00 | NUR ---
PT RECEIVED FROM [facility] RT, PT IS BREATHING ROOM AIR AND NOT IN ANY RESPIRATORY DISTRESS. WILL CONTINUE TO MONITOR.
--- NOTE | 2021-10-22 12:31 | NUR ---
PHYSICAL THERAPY CO-SIGN The Physical Therapy Progress Notes documented by Technical Recruiter have been reviewed. Reviewed/Co-Signed by: Malu Burciaga Documentation Done by: SHIREEN DEE PTA Addendum: 10/22/21 at 1231 by Malu Burciaga PT Amended: Links added.
--- NOTE | 2021-10-22 12:31 | NUR ---
PHYSICAL THERAPY CO-SIGN The Physical Therapy Progress Notes documented by Medical Sales Representative have been reviewed. Reviewed/Co-Signed by: Malu Burciaga Documentation Done by:SHIREEN DEE PTA Addendum: 10/22/21 at 1231 by Malu Burciaga PT Amended: Links added.
[2021-10-22 20:00] VITALS: BP 81/54
--- NOTE | 2021-10-22 20:00 | NUR ---
REVIEWED AND DISCUSSED POC WITH UCHE BROCK PT COMPLAINT OF PAIN 09/22. WILL MEDICATE PER ORDER. WILL CONTINUE TO MONITOR. Addendum: 10/22/21 at 2024 by Raúl Kohler RN RN WRONG PT. WILL CONTINUE TO MONITOR. NO PAIN AT THIS TIME
--- NOTE | 2021-10-22 23:06 | NUR ---
PATIENT IN BED WITHOUT INCIDENT. NOTED CHEST RISING AND FALLING WITHOUT RESPIRATORY DISTRESS. NO NOTED S/S OF PAIN/DISCOMFORT. PATIENT HAS BEEN ABLE TO WALK WITH ASSISTANCE TO THE RESTROOM. SIDE RAILS UP X 3 PADDED FOR SEIZURE PRECAUTION MEASURES. CALL LIGHT WITHIN REACH. NURSING WILL FREQUENT THE ROOM FOR ANTICIPATED NEEDS [email or web address]
--- NOTE | 2021-10-23 01:44 | NUR ---
PATIENT REMAINS IN HIS BED ASLEEP. NO S/S OF PAIN/DISCOMFORT. NO NOTED SEIZURE ACTIVITY AT THIS TIME. CHEST NOTED RISING AND FALLING WITHOUT DISTRESS. NURSING WILL FREQUENT THIS ROOM FOR ANTICIPATED ASSISTANCE. [email or web address]
--- NOTE | 2021-10-23 03:54 | NUR ---
PATIENT IN BED ASLEEP WITHOUT INCIDENT. [email or web address]
[2021-10-23 04:00] VITALS: BP 124/68
--- NOTE | 2021-10-23 05:13 | NUR ---
PATIENT REMAINED IN HIS ROOM AND IN BED THE WHOLE NIGHT. NO NOTED CHANGE IN CONDITION. PATIENT DENIES ANY PAIN/DISCOMFORT. NURSING WILL CONTINUE TO MONITOR. [email or web address]
--- NOTE | 2021-10-23 07:35 | NUR ---
ENDORSED PATIENT TO KAMLESH CRANE FOR CONTINUITY OF CARE. PATIENT WAS STABLE DURING CHANGE OF SHIFT. [email or web address]
[2021-10-23] MEDS: QUEtiapine FUMARATE 100 MG TAB PO SCH ×3 (08:05→16:33)
[2021-10-23] MEDS: THIAMINE 100 MG TAB PO SCH (08:05)
[2021-10-23] MEDS: OLANZapine 5 MG TAB PO SCH ×2 (08:05→21:55)
[2021-10-23] MEDS: levETIRAcetam 500 MG TAB PO SCH ×2 (08:05→21:55)
[2021-10-23] MEDS: SODIUM CHLORIDE FLUSH 10 ML SYR IVF SCH ×2 (08:10→19:30)
[2021-10-23] MEDS: CYANOCOBALAMIN 100 MCG TAB PO SCH (09:01)
--- NOTE | 2021-10-23 11:00 | NUR ---
Patient remained cooperative. Walked outside the room. Still waiting for SNF placement.
--- NOTE | 2021-10-23 11:43 | NUR ---
Patient seen touching and moving things from 124B's bed when 124B was out in surgery. Addendum: 10/23/21 at 1145 by Agency Nurse ROSA MARIA Villa RN Directed patient to place things back in place and not to take/touch other people's stuff.
--- NOTE | 2021-10-23 13:46 | NUR ---
Patient confused and mumbling about wanting to go home and telling us to call his niece but he doesn't remember the last four digits on the phone number. There is no contact number in his facesheet.
[2021-10-23 15:14] VITALS: BP 98/65
--- NOTE | 2021-10-23 19:30 | NUR ---
RECEIVED REPORT FROM DAY SHIFT NURSE KAMLESH. PATIENT IS A&O X2-3. PATIENT IS ON ROOM AIR, BREATHING IS NORMAL WITH SYMMETRICAL RISE AND FALL OF CHEST. NO IV SITE, PATIENT RUNNING NO FLUIDS. PATIENT IS LYING IN BED, COVERED UP. BED IS IN LOWEST POSITION, WHEELS LOCKED, CALL LIGHT IN PLACE. WILL CONTINUE TO OBSERVE PATIENT.
[2021-10-23 20:00] VITALS: BP_SYST 79; BP_SYST 80; BP_DIAS 50; BP_DIAS 54
--- NOTE | 2021-10-23 21:00 | NUR ---
OBTAINED 1999 VITALS: VITALS WERE: TEMP 97.8, HR 88, BP 80/54, O2 99, RR 18. PAGED DR JOHNSON FOR BP OF 80/[address] @ [address] JOHNSON INSTRUCTED TO CONTINUE TO MONITOR AND NOTIFY IF MAP IS < 60 @ 2056. WILL CONTINUE TO OBSERVE PATIENT.
--- NOTE | 2021-10-23 22:00 | NUR ---
ADMINISTERED 2100 MEDICATION TO PATIENT. PATIENT WAS ABLE TO SWALLOW PILLS AND TOLERATED WELL. PATIENT WAS AWAKE SITTING UP ON SIDE OF BED WITH LEGS DANGLING. BREATHING WAS NORMAL WITH SYMMETRICAL RISE AND FALL OF CHEST. WILL CONTINUE TO OBSERVE PATIENT.
--- NOTE | 2021-10-24 00:45 | NUR ---
CHECKED PATIENT'S VITALS. BP WAS 100/65. BP HAS BEEN IMPROVING. WILL CONTINUE TO MONITOR.
--- NOTE | 2021-10-24 00:45 | NUR ---
PATIENT REQUESTED FOOD SINCE IT WAS PAST LUNCH TIME (POINTING AT THE CLOCK). I EXPLAINED TO PATIENT THAT IT WAS 1230 AM, AT NIGHT. PATIENT SEEMED TO UNDERSTAND, I ASKED PATIENT IF HE WAS HUNGRY, PATIENT STATED "YES, I'M HUNGRY." I TOLD PATIENT I WOULD GET HIM SOMETHING TO EAT. I GAVE PATIENT APPLE SAUCE AND HE ASKED IF THERE WAS ANY CHOCOLATE PUDDING, I INFORMED PATIENT WE WERE OUT AND OFFERED HIM JELLO. HE ACCEPTED THE JELLO AND ATE BOTH ITEMS. PATIENT THEN WENT BACK TO BED. WILL CONTINUE TO OBSERVE PATIENT.
--- NOTE | 2021-10-24 03:00 | NUR ---
PATIENT HAS BEEN AWAKE AND ASLEEP OFF AND ON, PLAYING WITH HIS CALL LIGHT. PATIENT IS LYING IN BED. WILL CONTINUE TO OBSERVE PATIENT.
[2021-10-24 04:00] VITALS: BP 103/62
--- NOTE | 2021-10-24 05:00 | NUR ---
OBTAINED 0400 VITALS. VITALS WERE: TEMP 97.0, HR 67, BP 103/62, O2 99, RR 18. PATIENT WAS COVERED UP SLEEPING; AFTER VITALS PATIENT WENT BACK TO SLEEP. WILL CONTINUE TO OBSERVE PATIENT.
[2021-10-24] MEDS: SODIUM CHLORIDE FLUSH 10 ML SYR IVF SCH ×2 (07:30→19:30)
--- NOTE | 2021-10-24 07:30 | NUR ---
ENDORSED CONTINUITY OF CARE TO [facility]. PATIENT IS STABLE.
--- NOTE | 2021-10-24 07:31 | NUR ---
RECEIVED PT FROM ROTOR BLADE INSTALLER NURSE FOR CONTINUITY OF CARE. PT SLEEPING IN BED, EASILY AROUSABLE BY VERBAL STIMULI. RESPIRATIONS EVEN AND UNLABORED ON ROOM AIR. NO IV SITE, MD AWARE. CALL LIGHT WITHIN REACH. SAFETY PRECAUTIONS IN PLACE. WILL CONTINUE TO MONITOR.
[2021-10-24 08:00] VITALS: BP 102/68
--- NOTE | 2021-10-24 08:00 | NUR ---
Patient's Plan of Care was discussed and reviewed with SHEEP BONER: PHILLIP OLIVIER
[2021-10-24] MEDS: QUEtiapine FUMARATE 100 MG TAB PO SCH ×3 (09:35→18:08)
[2021-10-24] MEDS: CYANOCOBALAMIN 100 MCG TAB PO SCH (09:35)
[2021-10-24] MEDS: THIAMINE 100 MG TAB PO SCH (09:35)
[2021-10-24] MEDS: levETIRAcetam 500 MG TAB PO SCH ×2 (09:35→22:04)
[2021-10-24] MEDS: OLANZapine 5 MG TAB PO SCH ×2 (09:35→22:03)
--- NOTE | 2021-10-24 09:38 | NUR ---
ADMINISTERED SCHEDULED MORNING MEDS. PT TEACHING ABOUT MEDS GIVEN. PT VERBALIZED UNDERSTANDING. PT COMPLIANT IN TAKING MEDS. WILL CONTINUE TO MONITOR.
--- NOTE | 2021-10-24 10:56 | NUR ---
PT SEEN AND CHECKED BY DR DONAHUE.
--- NOTE | 2021-10-24 12:54 | NUR ---
ADMINISTERED SCHEDULED MEDS. PT TOLERATED WELL. WILL CONTINUE TO MONITOR.
--- NOTE | 2021-10-24 15:02 | NUR ---
PT IN BED, RESTING. NO DISTRESS NOTED. DENIES PAIN. WILL CONTINUE TO MONITOR.
--- NOTE | 2021-10-24 18:09 | NUR ---
ADMINISTERED SCHEDULED MED. PT COMPLIANT IN TAKING MEDS. WILL CONTINUE TO MONITOR.
--- NOTE | 2021-10-24 19:15 | NUR ---
ENDORSED PT TO [employer] TRAFF[employer] CONTR[employer] [facility] C[facility] NURSE FOR CONTINUITY OF CARE. ALL NEEDS MET THROUGHOUT SHIFT. PT IS STABLE.
--- NOTE | 2021-10-24 19:30 | NUR ---
RECEIVED REPORT FROM DAY SHIFT NURSE. PATIENT IS A&O X 2-3. PATENT IS ON ROOM AIR, BREATHING IS NORMAL WITH SYMMETRICAL RISE AND FALL OF CHEST. PATIENT HAS NO IV SITE. PATIENT IS LYING IN BED RESTING. WILL CONTINUE TO OBSERVE PATIENT.
[2021-10-24 20:00] VITALS: BP 102/63
--- NOTE | 2021-10-24 21:00 | NUR ---
LOOKED IN ON PATIENT. PATIENT IS RESTING COMFORTABLY. PATIENT IS AWAKE, BUT LYING IN BED. WILL CONTINUE TO OBSERVE PATIENT.
--- NOTE | 2021-10-25 00:30 | NUR ---
PATIENT HAD COME OUT INTO [facility] ASKING ABOUT LUNCH SINCE IT WAS 12 O'CLOCK. TOLD PATIENT IT WAS MIDNIGHT, NOT LUNCH TIME. ASKED PATIENT IF HE WAS HUNGRY. PATIENT STATED, "WELL, YES". I ASKED PATIENT WHAT HE WOULD LIKE, HE STATED CHOCOLATE PUDDING. GAVE PATIENT A CHOCOLATE PUDDING, AND HE SAT UP IN BED AND ATE THE PUDDING. WILL CONTINUE TO OBSERVE PATIENT.
--- NOTE | 2021-10-25 00:30 | NUR ---
PATIENT HAS GOTTEN UP A FEW TIMES AND WONDERED OUT INTO THE [facility], BUT PATIENT IS EASILY GUIDED BACK TO HIS BED. HIS SPEECH HAS IMPROVED OVER THE PAST FEW WEEKS. PATIENT WAS TALKING ABOUT LIVING IN [place] BUT HE'S AWARE THAT HE'S IN [place]. THERE IS STILL MUMBLING IN BETWEEN, BUT PATIENT SPEAKS MUCH CLEARER NOW THAN PREVIOUSLY. WILL CONTINUE TO OBSERVE PATIENT.
--- NOTE | 2021-10-25 03:00 | NUR ---
PATIENT HAD WONDERED OUT INTO THE HALLWAY AROUND 0230. GUIDED PATIENT BACK TO HIS ROOM. PATIENT WAS WATCHING [employer] AND STARTED TALKING ABOUT [place]. I MENTIONED TO PATIENT ABOUT THE PASSING OF QUEEN ALICIA AND HE MENTION JAKY. PATIENT DEMONSTRATED AN UNDERSTANDING OF WHAT WAS CURRENTLY GOING ON. PATIENT ALSO DISCUSSED WANTING TO HAVE A SHOWER AND SHAVE. I INFORMED PATIENT THAT IT WAS LATE, BUT I WOULD MENTION IT TO THE DAY SHIFT. PATIENT SAID OKAY. PATIENT COVERED HIMSELF BACK UP, AND WENT BACK TO SLEEP. WILL CONTINUE TO OBSERVE PATIENT.
[2021-10-25 04:00] VITALS: BP 130/70
--- NOTE | 2021-10-25 05:30 | NUR ---
PATIENT IS SLEEPING. BREATHING IS NORMAL WITH SYMMETRICAL RISE AND FALL OF CHEST. WILL CONTINUE TO OBSERVE PATIENT.
[2021-10-25] MEDS: SODIUM CHLORIDE FLUSH 10 ML SYR IVF SCH ×2 (07:30→19:30)
--- NOTE | 2021-10-25 07:40 | NUR ---
ENDORSED TO DAY SHIFT NURSE BG FOR CONTINUITY OF CARE. PATIENT IS STABLE.
[2021-10-25 08:00] VITALS: BP 101/66
[2021-10-25] MEDS: CYANOCOBALAMIN 100 MCG TAB PO SCH (09:00)
[2021-10-25] MEDS: levETIRAcetam 500 MG TAB PO SCH ×2 (10:46→20:04)
[2021-10-25] MEDS: QUEtiapine FUMARATE 100 MG TAB PO SCH ×3 (10:47→17:33)
[2021-10-25] MEDS: THIAMINE 100 MG TAB PO SCH (10:48)
--- NOTE | 2021-10-25 15:34 | NUR ---
PHYSICAL THERAPY CO-SIGN The Physical Therapy Progress Notes documented by Hospice Executive Director have been reviewed. Reviewed/Co-Signed by: Malu Burciaga Documentation Done by:SHIREEN DEE PTA Addendum: 10/25/21 at 1535 by Malu Burciaga PT Amended: Links added.
[2021-10-25 16:00] VITALS: BP 110/70
--- NOTE | 2021-10-25 20:00 | NUR ---
RECEIVED REPORT FROM AM RN. PATIENT IS ASLEEP, EASILY AROUSABLE BY VERBAL STIMULI.. NO S/SX OF PAIN NOR DISCOMFORT. SEIZURE PRECAUTION IN PLACE. SKIN WARM AND DRY TO TOUCH. NO IV ACCESS. BED IN THE LOWEST AND LOCKED POSITION FOR SAFETY.
--- NOTE | 2021-10-25 21:45 | NUR ---
PROVIDED HS SNACKS.
[2021-10-26] VITALS: BP 112/78
--- NOTE | 2021-10-26 00:54 | NUR ---
PATIENT IN BED WITH EYES CLOSED. NO S/SX OF PAIN NOR DISCOMFORT. CALL LIGHT WITHIN REACH,
--- NOTE | 2021-10-26 04:00 | NUR ---
PATIENT ASLEEP. BREATHING EVEN AND UNLABORED. CALL LIGHT IN REACH.
[2021-10-26] MEDS: SODIUM CHLORIDE FLUSH 10 ML SYR IVF SCH (06:14)
--- NOTE | 2021-10-26 06:22 | NUR ---
PATIENT ASLEEP. NO ACUTE DISTRESS NOTED. ALL NEEDS ATTENDED TO. SAFETY PRECAUTIONS MAINTAINED DURING THE SHIFT, CALL LIGHT REMAINED WITHIN REACH.
[2021-10-26 08:00] VITALS: BP 95/55
[2021-10-26] MEDS: levETIRAcetam 500 MG TAB PO SCH (09:00)
[2021-10-26] MEDS: CYANOCOBALAMIN 100 MCG TAB PO SCH (09:00)
[2021-10-26] MEDS: THIAMINE 100 MG TAB PO SCH (09:00)
[2021-10-26] MEDS: QUEtiapine FUMARATE 100 MG TAB PO SCH (09:00)
[2021-10-26] MEDS ORDERED: QUET100T44 PO (11:48)
[2021-10-26] MEDS ORDERED: KEP500 PO (11:48)
--- NOTE | 2021-10-26 11:49 | NUR ---
DC INSTRUCTION GIVEN, PT STATED UNDERSTANDING, ALL QUESTIONS ANSWERED, PT STATED WILL GO TO [facility]. MRSA SWAB TAKEN.
--- NOTE | 2021-10-26 12:30 | NUR ---
PT D/C'd VIA W/C TO UBER VEHICLE IN LOBBY P/U AREA. PT D/C'd w ALL PERSONAL BELONGINGS IN ARMS. PT ALERT, CONDITION STABLE AND HE IS IN NO APPARENT DISTRESS.
== END 2021-10-26 12:15 | disposition home or self-care (01) | DRG 812 ==
LOC: MED 23:45 → MMU 09-03 01:27 → MIC 09-03 02:13 → MTU 09-06 22:20
PROVIDERS: ADMIT Internal Medicine; ATTEND Internal Medicine
PROC: 5A1945Z Respiratory Ventilation, 24-96 Consecutive Hours (ICD-10-PCS; principal; 2021-09-03)
PROC: 4A00X4Z Measurement of Central Nervous Electrical Activity, External Approach (ICD-10-PCS; 2021-09-03)
PROC: 0BH17EZ Insertion of Endotracheal Airway into Trachea, Via Natural or Artificial Opening (ICD-10-PCS; 2021-09-03)
PROC: 4A00X4Z Measurement of Central Nervous Electrical Activity, External Approach (ICD-10-PCS; 2021-09-20)
DX: T43.591A Poisoning by other antipsychotics and neuroleptics, accidental (unintentional), initial encounter (principal); J96.01 Acute respiratory failure with hypoxia; J69.0 Pneumonitis due to inhalation of food and vomit; G93.40 Encephalopathy, unspecified; G40.901 Epilepsy, unspecified, not intractable, with status epilepticus; N17.9 Acute kidney failure, unspecified; M62.82 Rhabdomyolysis; R65.10 Systemic inflammatory response syndrome (SIRS) of non-infectious origin without acute organ dysfunction; F29 Unspecified psychosis not due to a substance or known physiological condition; Z20.822 Contact with and (suspected) exposure to COVID-19; F10.139 Alcohol abuse with withdrawal, unspecified; F10.129 Alcohol abuse with intoxication, unspecified; Y90.9 Presence of alcohol in blood, level not specified; Z87.820 Personal history of traumatic brain injury; Z59.00 Homelessness unspecified; Y92.89 Other specified places as the place of occurrence of the external cause
CPT/HCPCS: 31500; 36415; 36600; 51702; 70450; 71045; 80048; 80053; 80076; 80305; 81001; 82140; 82550; 82553; 82803; 82948; 83735; 83880; 84484; 85025; 87070; 87081; 87186; 87205; 89220; 92526; 92610; 93005; 94002; 94003; 94640; 94664; 94667; 96365; 97110; 97112; 97116; 97163-GP; 97530; 99291; C9113; G0480; G0482; J0360; J1630; J1650; J1953; J1956; J2060; J2250; J2270; J2543; J2704; J3010; J3360; J3475; J3480; J7060; Q0092